=== PATIENT | female | born 1955 | race African-American/Black ===

== ENCOUNTER → 2017-03-10 | Outpatient (CLI) | payer MEDICARE, MEDICAID ==
[~2017-03-10] MED LIST: ESCI20TA51 PO; GLIP-115 OR; GLIP-115 PO; LEVO88TA4 OR; LIS20T GT; TRAZ100T2 PO; ZOLP5TAB5 PO
== END ==
LOC: LAB 11:34
PROVIDERS: ATTEND Internal Medicine Cardiovascular Disease
DX: N39.0 Urinary tract infection, site not specified (principal)
CPT/HCPCS: 87086

== ENCOUNTER → 2017-04-29 | Outpatient (CLI) | payer MEDICARE, MEDICAID ==
[2017-04-29 12:28] LABS: Urine Bilirubin Negative (Negative); Urine Blood Negative /uL (Negative); Urine Color Yellow (Yellow); Urine Glucose TRACE mg/dL (Normal); Urine Ketone Negative (Negative); Urine Nitrite Negative (Negative); Urine Urobilinogen Normal (Negative); Urine pH 5.5 (5.0-8.0)
== END | disposition home or self-care (01) ==
LOC: LAB 09:47
PROVIDERS: ATTEND Internal Medicine Cardiovascular Disease
DX: N39.0 Urinary tract infection, site not specified (principal)
CPT/HCPCS: 81003; 87086

== ENCOUNTER 2017-07-05 20:11 | Emergency (ER) | payer MEDICARE, MEDICAID ==
[~2017-07-05] VITALS: Ht 157.5 cm; Wt 63.5 kg
[2017-07-05 20:44] LABS: Basophils # (auto) 0.2 uL; Basophils % (auto) 1.2 % (0.0-2.0); Eosinophils # (auto) 0.1 uL; Eosinophils % (auto) 0.9 % (0.0-7.0); Hematocrit 43.8 % (36.0-46.0); Hemoglobin 14.5 g/dL (12.2-16.2); Lymphocytes # (auto) 2.9 uL; Lymphocytes % (auto) 23.3 % (10.0-50.0); Mean Corpuscular Hgb Conc. 33.1 g/dL (32.0-36.0); Mean Corpuscular Volume 87.6 fL (80.0-100.0); Mean Platelet Volume 8.9 fL (6.9-10.8); Monocytes # (auto) 1.1 uL; Monocytes % (auto) 8.5 % (0.0-12.0); Neutrophils # (auto) 8.2 uL; Neutrophils % (auto) 66.1 % (37.0-80.0); Platelet Count (auto) 200 10^3/uL (140-450); Red Cell Distribution Width 14.2 % (11.8-14.3); White Blood Cell 12.5 10^3/uL (4.4-10.8)
[2017-07-05 21:09] LABS: Albumin 4.1 g/dL (3.4-5.0); BUN/Creatinine Ratio 17.6; Calcium 9.5 mg/dL (8.5-10.1); Potassium 3.9 mmol/L (3.5-5.1)
[2017-07-05 21:11] LABS: Bilirubin, Total 0.4 mg/dL (0.2-1.0); Total Protein 7.2 g/dL (6.4-8.2)
[2017-07-06] MEDS ORDERED: HYDROcodone-ACET 10/325MG TAB PO ONE (03:30)
[2017-07-06] MEDS ORDERED: LEVOFLOXACIN 500MG 100 ML IV ONE (03:30)
[2017-07-06 04:25] LABS: Urine Bilirubin Negative (Negative); Urine Blood Negative /uL (Negative); Urine Color Yellow (Yellow); Urine Glucose Normal (Normal); Urine Ketone Negative (Negative); Urine Nitrite Negative (Negative); Urine RBC <1 /hpf (0 - 4); Urine Squamous Epithelial Cell FEW /hpf (<5); Urine Urobilinogen Normal (Negative); Urine pH 6.5 (5.0-8.0)
[2017-07-06 04:32] VITALS: BP 127/72
[2017-07-06] MEDS ORDERED: NOREPINEPHRINE BITARTRATE 250 ML IV ONE (05:52)
== END 2017-07-06 06:08 | disposition home or self-care (01) ==
LOC: ER 20:18
DX: J02.9 Acute pharyngitis, unspecified (principal); H92.01 Otalgia, right ear; M79.672 Pain in left foot; J06.9 Acute upper respiratory infection, unspecified; E11.9 Type 2 diabetes mellitus without complications; E78.5 Hyperlipidemia, unspecified; I10 Essential (primary) hypertension; Z88.0 Allergy status to penicillin; Z91.040 Latex allergy status; Z79.899 Other long term (current) drug therapy
CPT/HCPCS: 36415; 71010; 80053; 81001; 84550; 85025; 96365; 99285; J1956

== ENCOUNTER → 2017-09-13 | Outpatient (CLI) | payer MEDICARE, MEDICAID ==
[2017-09-13 12:59] LABS: Urine Bilirubin Negative (Negative); Urine Blood Negative /uL (Negative); Urine Color Yellow (Yellow); Urine Glucose Normal (Normal); Urine Ketone Negative (Negative); Urine Nitrite Negative (Negative); Urine Urobilinogen Normal (Negative); Urine pH 5.5 (5.0-8.0)
[2017-09-13 13:19] LABS: BUN/Creatinine Ratio 23.3; Bilirubin, Total 0.2 mg/dL (0.2-1.0); Calcium 10.3 mg/dL (8.5-10.1); Potassium 4.7 mmol/L (3.5-5.1); Total Protein 7.2 g/dL (6.4-8.2)
== END | disposition home or self-care (01) ==
LOC: LAB 08:05
PROVIDERS: ATTEND Internal Medicine Cardiovascular Disease
DX: I10 Essential (primary) hypertension (principal); E11.9 Type 2 diabetes mellitus without complications; E78.00 Pure hypercholesterolemia, unspecified; N39.0 Urinary tract infection, site not specified
CPT/HCPCS: 36415; 80053; 80061; 81003; 83036; 87086

== ENCOUNTER 2017-10-22 16:42 | Inpatient (IN) | payer MEDICARE, MEDICAID ==
[~2017-10-22] VITALS: Ht 157.5 cm; Wt 65.7 kg
[2017-10-22] MEDS ORDERED: SODIUM CHLORIDE 0.9% 1,000 ML IV ONE (17:21)
[2017-10-22] MEDS ORDERED: ONDANSETRON HCL 4 MG/2 ML VIAL IV ONE (17:30)
[2017-10-22 17:45] LABS: Basophils # (auto) 0 uL; Eosinophils # (auto) 0 uL; Hemoglobin 16.7 g/dL (12.2-16.2); Lymphocytes # (auto) 1.9 uL; Monocytes # (auto) 0.6 uL; Neutrophils % (auto) 77.6 % (37.0-80.0)
[2017-10-22 17:49] LABS: Basophils % (auto) 0.2 % (0.0-2.0); Hematocrit 50.9 % (36.0-46.0); Lymphocytes % (auto) 16.7 % (10.0-50.0); Mean Corpuscular Hemoglobin 27.9 pg (28.0-32.0); Mean Corpuscular Hgb Conc. 32.9 g/dL (32.0-36.0); Mean Corpuscular Volume 84.8 fL (80.0-100.0); Monocytes % (auto) 5.5 % (0.0-12.0); Neutrophils # (auto) 8.8 uL; Nucleated Red Blood Cells % 0.3 %; Platelet Count (auto) 160 10^3/uL (140-450); Red Blood Cells 6.01 10^6/uL (4.0-5.20); Red Cell Distribution Width 14.9 % (11.8-14.3); White Blood Cell 11.3 10^3/uL (4.4-10.8)
[2017-10-22 18:08] LABS: Blood Alcohol < 3.0 mg/dL (0-5); Magnesium 2.2 mg/dL (1.6-2.6)
[2017-10-22 19:15] LABS: Potassium 3.7 mmol/L (3.5-5.1)
[2017-10-22 19:16] LABS: BUN/Creatinine Ratio 17.1; Calcium 9.6 mg/dL (8.5-10.1)
[2017-10-22 19:17] LABS: Albumin 4.1 g/dL (3.4-5.0); Bilirubin, Total 0.4 mg/dL (0.2-1.0); Total Protein 7.9 g/dL (6.4-8.2)
[2017-10-22] MEDS ORDERED: HYDROcodone-ACET 10/325MG TAB PO ONE (20:00)
[2017-10-22] MEDS ORDERED: DIPHENOXYLATE W/ATROPINE 2.5 MG TAB PO ONE (21:45)
[2017-10-22] MEDS ORDERED: ACETAMINOPHEN 325 MG TAB PO ONE (23:15)
[2017-10-22] MEDS: SODIUM CHLORIDE 0.9% 1,000 ML IV SCH (23:55)
[2017-10-23] VITALS (8 sets, daily range): BP systolic 94–128; BP diastolic 42–75
[2017-10-23] MEDS: metroNIDAZOLE 500MG/100ML 100 ML IV SCH ×5 (00:03→23:11)
[2017-10-23] MEDS ORDERED: ONDANSETRON HCL 4 MG/2 ML VIAL IV PRN (06:00)
[2017-10-23] MEDS ORDERED: ACETAMINOPHEN 325 MG TAB PO PRN (06:45)
[2017-10-23] MEDS ORDERED: ACETAMINOPHEN 325 MG TAB PO ONE (06:52)
[2017-10-23] MEDS: ACETAMINOPHEN 325 MG TAB PO PRN ×2 (07:15→16:12)
[2017-10-23] MEDS: SODIUM CHLORIDE 0.9% 1,000 ML IV SCH (11:32)
[2017-10-23 11:48] LABS: Urine Bacteria FEW /hpf (None Seen); Urine Blood 2+ /uL (Negative); Urine Specific Gravity 1.015 (1.001-1.035); Urine WBC 10 /hpf (0 - 5)
[2017-10-23 11:56] LABS: Alcohol, Urine < 3.0 mg/dL (0-5); Amphetamine Screen, Urine NEGATIVE (NEGATIVE); Barbiturate Scree,Urine NEGATIVE (NEGATIVE); Benzodiazephine Screen, Urine NEGATIVE (NEGATIVE); Cannabinoid Screen, Urine POSITIVE (NEGATIVE); Cocaine Screen, Urine NEGATIVE (NEGATIVE); Opiate Scree,Urine POSITIVE (NEGATIVE); Phencyclidine Screen, Urine NEGATIVE (NEGATIVE)
[2017-10-23] MEDS: NITROGLYCERIN 0.2MG/HR TOPICAL PATCH TD SCH (17:58)
[2017-10-23] MEDS ORDERED: ENOXAPARIN SOD 30 MG/0.3 ML SYRINGE SC SCH (18:00)
[2017-10-23] MEDS ORDERED: ENOXAPARIN SOD 30 MG/0.3 ML SYRINGE IV SCH (18:00)
[2017-10-23] MEDS: LEVOFLOXACIN 500MG 100 ML IV SCH (18:56)
[2017-10-23] MEDS ORDERED: ZOLPIDEM TARTRATE 5 MG TAB PO PRN (20:15)
[2017-10-24] VITALS (7 sets, daily range): BP systolic 109–138; BP diastolic 54–70
[2017-10-24] MEDS: ACETAMINOPHEN 325 MG TAB PO PRN ×2 (00:46→08:26)
[2017-10-24] MEDS: SODIUM CHLORIDE 0.9% 1,000 ML IV SCH ×2 (02:25→17:11)
[2017-10-24] MEDS: metroNIDAZOLE 500MG/100ML 100 ML IV SCH ×4 (05:05→23:29)
[2017-10-24] MEDS: LEVOFLOXACIN 500MG 100 ML IV SCH (10:49)
[2017-10-24] MEDS: NITROGLYCERIN 0.2MG/HR TOPICAL PATCH TD SCH (13:02)
[2017-10-24] MEDS ORDERED: GABA300C10 PO (15:55)
[2017-10-24] MEDS ORDERED: METO-281 PO (15:55)
[2017-10-24] MEDS ORDERED: LOSA100T22 PO (15:55)
[2017-10-24] MEDS ORDERED: ATOR20TA PO (15:55)
[2017-10-24] MEDS ORDERED: HYDR-4683 PO (15:55)
[2017-10-24] MEDS ORDERED: PROP1CAP PO (15:55)
[2017-10-24] MEDS ORDERED: PREG200C19 PO (15:55)
[2017-10-24] MEDS ORDERED: DEXL60CA3 PO (15:55)
[2017-10-24] MEDS ORDERED: LEVO88TA4 PO (15:55)
[2017-10-24] MEDS ORDERED: RIVA15TA PO (15:55)
[2017-10-24] MEDS ORDERED: ZOLP10TA PO (15:55)
[2017-10-24] MEDS ORDERED: AMLO5TAB2 PO (15:55)
[2017-10-24] MEDS ORDERED: METOCLOPRAMIDE HCL 10 MG TAB PO PRN (16:15)
[2017-10-24] MEDS ORDERED: DEXTROSE (50%) 50ML SYRG IV PRN (16:15)
[2017-10-24] MEDS ORDERED: SITA50TA PO (16:33)
[2017-10-24] MEDS: InsuLIN REG 1unit/0.01ml Soln (100units/ml) SC SCH ×2 (17:00→22:41)
[2017-10-24] MEDS: ACCU-CHEK COMFORT CURVE STRIP VI SCH ×2 (17:11→22:41)
[2017-10-24] MEDS: glipiZIDE 5 MG TAB PO SCH (17:12)
[2017-10-24] MEDS: HYDROcodone-ACET 10/325MG TAB PO PRN (17:27)
[2017-10-24] MEDS ORDERED: GABAPENTIN 300 MG CAP PO SCH (18:00)
[2017-10-24] MEDS: PREGABALIN 25 MG CAP PO SCH (21:05)
[2017-10-24] MEDS: ATORVASTATIN 20 MG TAB PO SCH (21:06)
[2017-10-24] MEDS: PANTOPRAZOLE 40 MG TAB PO SCH (21:06)
[2017-10-24] MEDS: ALPRAZolam 0.25 MG TAB PO SCH (21:06)
[2017-10-24] MEDS: PROPRANOLOL HCL 20 MG TAB PO SCH (21:07)
[2017-10-24] MEDS: traZODone HCL 50 MG TAB PO SCH (21:07)
[2017-10-24] MEDS: ZOLPIDEM TARTRATE 5 MG TAB PO PRN (23:33)
[2017-10-25] VITALS (7 sets, daily range): BP systolic 90–158; BP diastolic 52–88
[2017-10-25] MEDS: metroNIDAZOLE 500MG/100ML 100 ML IV SCH ×3 (05:09→17:20)
[2017-10-25] MEDS: SODIUM CHLORIDE 0.9% 1,000 ML IV SCH ×2 (05:09→17:21)
[2017-10-25] MEDS: LEVOTHYROXINE SODIUM 88 MCG TAB PO SCH (05:09)
[2017-10-25] MEDS: PREGABALIN 25 MG CAP PO SCH ×3 (06:00→22:33)
[2017-10-25] MEDS: glipiZIDE 5 MG TAB PO SCH ×2 (06:20→17:20)
[2017-10-25] MEDS: ACCU-CHEK COMFORT CURVE STRIP VI SCH ×4 (06:21→22:00)
[2017-10-25] MEDS: InsuLIN REG 1unit/0.01ml Soln (100units/ml) SC SCH ×4 (06:21→22:00)
[2017-10-25] MEDS ORDERED: IOHEXOL 350 MG/ML 100ML IJ ONE (08:06)
[2017-10-25] MEDS ORDERED: LIDOCAINE 2%HCL (LOCAL ANESTH.) INJ 20ML MDV ONE (08:06)
[2017-10-25] MEDS ORDERED: ANGIOMAX 250 MG VIAL IV ONE (08:30)
[2017-10-25] MEDS ORDERED: MIDAZOLAM HCL 1MG/1ML-2 ML VIAL ONE (08:30)
[2017-10-25] MEDS ORDERED: fentaNYL CITRATE 100 MCG/2 ML VL ONE (08:30)
[2017-10-25] MEDS ORDERED: SODIUM CHL 0.9% 50 ML ONE (08:31)
[2017-10-25 08:33] LABS: INR 0.99 (0.9-1.15); Partial Thromboplastin Time 28.5 sec (22.64-33.71); Prothrombin Time 10.8 sec (9.37-12.3)
[2017-10-25] MEDS ORDERED: CLOPIDOGREL 300 MG TAB ONE (09:41)
[2017-10-25] MEDS: NITROGLYCERIN 0.2MG/HR TOPICAL PATCH TD SCH (10:00)
[2017-10-25] MEDS: JANUVIA 50 MG PO SCH (10:00)
[2017-10-25] MEDS ORDERED: LEXAPRO 20 MG PO SCH (10:00)
[2017-10-25] MEDS: PROPRANOLOL HCL 20 MG TAB PO SCH ×2 (11:07→22:33)
[2017-10-25] MEDS: ALPRAZolam 0.25 MG TAB PO SCH ×2 (11:07→22:33)
[2017-10-25] MEDS: PANTOPRAZOLE 40 MG TAB PO SCH ×2 (11:08→22:31)
[2017-10-25] MEDS: LOSARTAN POTASSIUM 50 MG TAB PO SCH (11:08)
[2017-10-25] MEDS: PARoxetine 20 MG TAB PO SCH (11:09)
[2017-10-25] MEDS: LEVOFLOXACIN 500MG 100 ML IV SCH (11:09)
[2017-10-25] MEDS: HYDROcodone-ACET 10/325MG TAB PO PRN ×2 (13:03→13:23)
[2017-10-25] MEDS: RIVAROXABAN 15 MG TAB PO SCH (17:20)
[2017-10-25] MEDS: traZODone HCL 50 MG TAB PO SCH (22:31)
[2017-10-25] MEDS: ATORVASTATIN 20 MG TAB PO SCH (22:33)
[2017-10-25] MEDS: ZOLPIDEM TARTRATE 5 MG TAB PO PRN (22:52)
[2017-10-26] MEDS: metroNIDAZOLE 500MG/100ML 100 ML IV SCH ×3 (03:21→11:57)
[2017-10-26 05:00] VITALS: BP 125/62
[2017-10-26] MEDS: PREGABALIN 25 MG CAP PO SCH ×3 (06:16→22:05)
[2017-10-26] MEDS: LEVOTHYROXINE SODIUM 88 MCG TAB PO SCH (06:36)
[2017-10-26] MEDS: glipiZIDE 5 MG TAB PO SCH ×2 (06:36→17:52)
[2017-10-26] MEDS: ACCU-CHEK COMFORT CURVE STRIP VI SCH ×4 (06:36→22:01)
[2017-10-26] MEDS: InsuLIN REG 1unit/0.01ml Soln (100units/ml) SC SCH ×4 (06:37→22:00)
[2017-10-26] MEDS: SODIUM CHLORIDE 0.9% 1,000 ML IV SCH ×2 (07:45→21:24)
[2017-10-26] MEDS: RIVAROXABAN 15 MG TAB PO SCH ×2 (08:00→18:00)
[2017-10-26 08:02] VITALS: BP 144/75
[2017-10-26] MEDS: NITROGLYCERIN 0.2MG/HR TOPICAL PATCH TD SCH (10:00)
[2017-10-26] MEDS: JANUVIA 50 MG PO SCH (10:00)
[2017-10-26] MEDS: PARoxetine 20 MG TAB PO SCH (10:17)
[2017-10-26] MEDS: ALPRAZolam 0.25 MG TAB PO SCH ×2 (10:17→22:05)
[2017-10-26] MEDS: PANTOPRAZOLE 40 MG TAB PO SCH ×2 (10:17→22:05)
[2017-10-26] MEDS: PROPRANOLOL HCL 20 MG TAB PO SCH ×2 (10:19→22:00)
[2017-10-26] MEDS: CLOPIDOGREL BISULFATE 75 MG TAB PO SCH (10:19)
[2017-10-26] MEDS: HYDROcodone-ACET 10/325MG TAB PO PRN ×2 (10:19→18:33)
[2017-10-26] MEDS: LOSARTAN POTASSIUM 50 MG TAB PO SCH (10:20)
[2017-10-26] MEDS: LEVOFLOXACIN 500MG 100 ML IV SCH (10:21)
[2017-10-26 11:38] VITALS: BP 99/53
[2017-10-26 16:59] VITALS: BP 148/71
[2017-10-26 22:00] VITALS: BP 126/66
[2017-10-26] MEDS: ATORVASTATIN 20 MG TAB PO SCH (22:05)
[2017-10-26] MEDS: traZODone HCL 50 MG TAB PO SCH (22:05)
[2017-10-27 05:00] VITALS: BP 142/69
[2017-10-27] MEDS: InsuLIN REG 1unit/0.01ml Soln (100units/ml) SC SCH ×4 (06:11→22:00)
[2017-10-27] MEDS: ACCU-CHEK COMFORT CURVE STRIP VI SCH ×4 (06:11→22:10)
[2017-10-27] MEDS: LEVOTHYROXINE SODIUM 88 MCG TAB PO SCH (06:12)
[2017-10-27] MEDS: PREGABALIN 25 MG CAP PO SCH ×3 (06:12→22:06)
[2017-10-27] MEDS: glipiZIDE 5 MG TAB PO SCH (06:13)
[2017-10-27] MEDS: HYDROcodone-ACET 10/325MG TAB PO PRN ×2 (06:15→20:29)
[2017-10-27 08:00] VITALS: BP 98/61
[2017-10-27] MEDS: RIVAROXABAN 15 MG TAB PO SCH ×2 (08:00→17:48)
[2017-10-27 08:01] VITALS: BP 98/61
[2017-10-27] MEDS: NITROGLYCERIN 0.2MG/HR TOPICAL PATCH TD SCH (10:00)
[2017-10-27] MEDS: JANUVIA 50 MG PO SCH (10:00)
[2017-10-27] MEDS: PROPRANOLOL HCL 20 MG TAB PO SCH ×2 (10:00→22:07)
[2017-10-27] MEDS: PARoxetine 20 MG TAB PO SCH (10:22)
[2017-10-27] MEDS: LOSARTAN POTASSIUM 50 MG TAB PO SCH (10:22)
[2017-10-27] MEDS: PANTOPRAZOLE 40 MG TAB PO SCH ×2 (10:23→22:05)
[2017-10-27] MEDS: ALPRAZolam 0.25 MG TAB PO SCH ×2 (10:23→22:06)
[2017-10-27] MEDS: CLOPIDOGREL BISULFATE 75 MG TAB PO SCH (10:23)
[2017-10-27] MEDS: SODIUM CHLORIDE 0.9% 1,000 ML IV SCH (10:24)
[2017-10-27 11:54] VITALS: BP 115/60
[2017-10-27] MEDS: BOOST PLUS 8 ounce PO SCH ×2 (12:00→17:48)
[2017-10-27 13:25] LABS: Basophils # (auto) 0 uL; Basophils % (auto) 0.7 % (0.0-2.0); Eosinophils # (auto) 0 uL; Eosinophils % (auto) 0.4 % (0.0-7.0); Hematocrit 45.8 % (36.0-46.0); Hemoglobin 14.9 g/dL (12.2-16.2); Lymphocytes # (auto) 2.8 uL; Lymphocytes % (auto) 51.6 % (10.0-50.0); Mean Corpuscular Hemoglobin 27.5 pg (28.0-32.0); Mean Corpuscular Hgb Conc. 32.5 g/dL (32.0-36.0); Mean Corpuscular Volume 84.6 fL (80.0-100.0); Monocytes # (auto) 0.6 uL; Monocytes % (auto) 10.7 % (0.0-12.0); Neutrophils % (auto) 36.6 % (37.0-80.0); Nucleated Red Blood Cells % 0.8 %; Platelet Count (auto) 128 10^3/uL (140-450); Red Blood Cells 5.41 10^6/uL (4.0-5.20); Red Cell Distribution Width 15.1 % (11.8-14.3); White Blood Cell 5.5 10^3/uL (4.4-10.8)
[2017-10-27 14:05] LABS: BUN/Creatinine Ratio 5.9; Potassium 3.1 mmol/L (3.5-5.1)
[2017-10-27 14:06] LABS: Calcium 8.7 mg/dL (8.5-10.1)
[2017-10-27 16:55] VITALS: BP 162/107
[2017-10-27] MEDS: ATORVASTATIN 20 MG TAB PO SCH (22:06)
[2017-10-27] MEDS: MEGESTROL ACETATE 20 MG TAB PO SCH (22:06)
[2017-10-27] MEDS: traZODone HCL 50 MG TAB PO SCH (22:06)
[2017-10-28] MEDS: SODIUM CHLORIDE 0.9% 1,000 ML IV SCH ×2 (00:13→12:58)
[2017-10-28] MEDS: HYDROcodone-ACET 10/325MG TAB PO PRN ×2 (03:15→21:49)
[2017-10-28 05:08] VITALS: BP 107/59
[2017-10-28] MEDS: ACCU-CHEK COMFORT CURVE STRIP VI SCH ×4 (06:01→22:01)
[2017-10-28] MEDS: PREGABALIN 25 MG CAP PO SCH ×3 (06:05→21:48)
[2017-10-28] MEDS: LEVOTHYROXINE SODIUM 88 MCG TAB PO SCH (06:05)
[2017-10-28] MEDS: InsuLIN REG 1unit/0.01ml Soln (100units/ml) SC SCH ×4 (06:05→22:00)
[2017-10-28] MEDS ORDERED: GASTROGRAFIN 30 ML SOL ONE (07:58)
[2017-10-28] MEDS ORDERED: POTASSIUM CHLORIDE 60 MEQ, LIDOCAINE 1% (LOCAL ANESTH.) 6 ML in SODIUM CHL 0.9% 500 ML IV ONE (08:00)
[2017-10-28 09:00] VITALS: BP 122/68
[2017-10-28] MEDS: PROPRANOLOL HCL 20 MG TAB PO SCH ×2 (10:00→22:01)
[2017-10-28] MEDS: ALPRAZolam 0.25 MG TAB PO SCH ×2 (10:00→21:48)
[2017-10-28] MEDS: JANUVIA 50 MG PO SCH (10:00)
[2017-10-28] MEDS: NITROGLYCERIN 0.2MG/HR TOPICAL PATCH TD SCH (10:00)
[2017-10-28] MEDS: MEGESTROL ACETATE 20 MG TAB PO SCH ×2 (10:55→21:48)
[2017-10-28] MEDS: PANTOPRAZOLE 40 MG TAB PO SCH ×2 (10:55→21:48)
[2017-10-28] MEDS: PARoxetine 20 MG TAB PO SCH (10:56)
[2017-10-28] MEDS: LOSARTAN POTASSIUM 50 MG TAB PO SCH (10:56)
[2017-10-28] MEDS: CLOPIDOGREL BISULFATE 75 MG TAB PO SCH (10:59)
[2017-10-28] MEDS: METOCLOPRAMIDE HCL 10 MG TAB PO SCH ×3 (10:59→21:48)
[2017-10-28] MEDS: BOOST PLUS 8 ounce PO SCH ×3 (11:02→17:49)
[2017-10-28] MEDS: glipiZIDE 5 MG TAB PO SCH (11:11)
[2017-10-28] MEDS: RIVAROXABAN 15 MG TAB PO SCH ×2 (12:52→17:49)
[2017-10-28 13:00] VITALS: BP 140/77
[2017-10-28 17:00] VITALS: BP 168/77
[2017-10-28] MEDS: ATORVASTATIN 20 MG TAB PO SCH (21:48)
[2017-10-28] MEDS: traZODone HCL 50 MG TAB PO SCH (21:48)
[2017-10-28 22:18] VITALS: BP 156/84
[2017-10-29] MEDS: SODIUM CHLORIDE 0.9% 1,000 ML IV SCH ×2 (02:25→15:45)
[2017-10-29 05:00] VITALS: BP 156/71
[2017-10-29] MEDS: HYDROcodone-ACET 10/325MG TAB PO PRN ×3 (05:05→21:38)
[2017-10-29] MEDS: LEVOTHYROXINE SODIUM 88 MCG TAB PO SCH (05:05)
[2017-10-29] MEDS: PREGABALIN 25 MG CAP PO SCH ×3 (05:06→21:26)
[2017-10-29] MEDS: InsuLIN REG 1unit/0.01ml Soln (100units/ml) SC SCH ×4 (05:07→21:38)
[2017-10-29] MEDS: METOCLOPRAMIDE HCL 10 MG TAB PO SCH ×4 (07:00→21:25)
[2017-10-29] MEDS: ACCU-CHEK COMFORT CURVE STRIP VI SCH ×4 (07:00→21:38)
[2017-10-29] MEDS: PARoxetine 20 MG TAB PO SCH (08:58)
[2017-10-29] MEDS: ALPRAZolam 0.25 MG TAB PO SCH ×2 (08:58→21:24)
[2017-10-29] MEDS: RIVAROXABAN 15 MG TAB PO SCH ×2 (08:58→18:19)
[2017-10-29] MEDS: PANTOPRAZOLE 40 MG TAB PO SCH ×2 (08:58→21:25)
[2017-10-29] MEDS: CLOPIDOGREL BISULFATE 75 MG TAB PO SCH (08:58)
[2017-10-29 09:00] VITALS: BP 134/98
[2017-10-29] MEDS: PROPRANOLOL HCL 20 MG TAB PO SCH ×2 (09:00→21:38)
[2017-10-29] MEDS: LOSARTAN POTASSIUM 50 MG TAB PO SCH (09:00)
[2017-10-29] MEDS: glipiZIDE 5 MG TAB PO SCH (09:07)
[2017-10-29] MEDS: JANUVIA 50 MG PO SCH (09:58)
[2017-10-29] MEDS: BOOST PLUS 8 ounce PO SCH ×3 (09:58→18:19)
[2017-10-29] MEDS: NITROGLYCERIN 0.2MG/HR TOPICAL PATCH TD SCH (09:59)
[2017-10-29] MEDS: MEGESTROL ACETATE 20 MG TAB PO SCH ×2 (09:59→21:25)
[2017-10-29 13:00] VITALS: BP 134/76
[2017-10-29 17:00] VITALS: BP 140/74
[2017-10-29 20:00] VITALS: BP 153/80
[2017-10-29] MEDS: traZODone HCL 50 MG TAB PO SCH (21:24)
[2017-10-29] MEDS: ATORVASTATIN 20 MG TAB PO SCH (21:26)
[2017-10-29 22:00] VITALS: BP 153/80
[2017-10-30] MEDS: SODIUM CHLORIDE 0.9% 1,000 ML IV SCH ×2 (05:05→18:25)
[2017-10-30 05:55] VITALS: BP 136/80
[2017-10-30] MEDS: PREGABALIN 25 MG CAP PO SCH ×3 (05:58→21:22)
[2017-10-30] MEDS: HYDROcodone-ACET 10/325MG TAB PO PRN ×2 (06:10→14:20)
[2017-10-30] MEDS: METOCLOPRAMIDE HCL 10 MG TAB PO SCH ×4 (06:11→21:23)
[2017-10-30] MEDS: LEVOTHYROXINE SODIUM 88 MCG TAB PO SCH (06:11)
[2017-10-30] MEDS: InsuLIN REG 1unit/0.01ml Soln (100units/ml) SC SCH ×4 (06:12→21:23)
[2017-10-30] MEDS: ACCU-CHEK COMFORT CURVE STRIP VI SCH ×4 (06:12→22:00)
[2017-10-30] MEDS: BOOST PLUS 8 ounce PO SCH ×3 (08:00→18:00)
[2017-10-30 08:30] VITALS: BP 124/72
[2017-10-30 09:00] VITALS: BP 124/72
[2017-10-30] MEDS: NITROGLYCERIN 0.2MG/HR TOPICAL PATCH TD SCH (09:59)
[2017-10-30] MEDS: CLOPIDOGREL BISULFATE 75 MG TAB PO SCH (09:59)
[2017-10-30] MEDS: PANTOPRAZOLE 40 MG TAB PO SCH ×2 (10:00→21:23)
[2017-10-30] MEDS: PARoxetine 20 MG TAB PO SCH (10:00)
[2017-10-30] MEDS: LOSARTAN POTASSIUM 50 MG TAB PO SCH (10:00)
[2017-10-30] MEDS: JANUVIA 50 MG PO SCH (10:00)
[2017-10-30] MEDS: ALPRAZolam 0.25 MG TAB PO SCH ×2 (10:00→21:21)
[2017-10-30] MEDS: RIVAROXABAN 15 MG TAB PO SCH ×2 (10:00→17:42)
[2017-10-30] MEDS: MEGESTROL ACETATE 20 MG TAB PO SCH ×2 (10:01→21:21)
[2017-10-30] MEDS: glipiZIDE 5 MG TAB PO SCH (10:04)
[2017-10-30] MEDS: PROPRANOLOL HCL 20 MG TAB PO SCH ×2 (10:05→21:22)
[2017-10-30 13:00] VITALS: BP 129/62
[2017-10-30 17:00] VITALS: BP 118/70
[2017-10-30] MEDS: ATORVASTATIN 20 MG TAB PO SCH (21:20)
[2017-10-30] MEDS: traZODone HCL 50 MG TAB PO SCH (21:21)
[2017-10-30 22:03] VITALS: BP 131/74
[2017-10-31 06:00] VITALS: BP 157/85
[2017-10-31] MEDS: PREGABALIN 25 MG CAP PO SCH ×2 (06:17→14:00)
[2017-10-31] MEDS: METOCLOPRAMIDE HCL 10 MG TAB PO SCH ×2 (06:17→11:45)
[2017-10-31] MEDS: InsuLIN REG 1unit/0.01ml Soln (100units/ml) SC SCH ×2 (06:50→11:30)
[2017-10-31] MEDS: LEVOTHYROXINE SODIUM 88 MCG TAB PO SCH (06:53)
[2017-10-31] MEDS: ACCU-CHEK COMFORT CURVE STRIP VI SCH ×2 (07:14→11:43)
[2017-10-31] MEDS: SODIUM CHLORIDE 0.9% 1,000 ML IV SCH (07:45)
[2017-10-31 08:00] VITALS: BP 141/86
[2017-10-31] MEDS: BOOST PLUS 8 ounce PO SCH ×2 (08:00→12:00)
[2017-10-31 09:00] VITALS: BP 141/86
[2017-10-31] MEDS: PANTOPRAZOLE 40 MG TAB PO SCH (09:22)
[2017-10-31] MEDS: LOSARTAN POTASSIUM 50 MG TAB PO SCH (09:23)
[2017-10-31] MEDS: RIVAROXABAN 15 MG TAB PO SCH (09:23)
[2017-10-31] MEDS: PARoxetine 20 MG TAB PO SCH (09:23)
[2017-10-31] MEDS: ALPRAZolam 0.25 MG TAB PO SCH (09:23)
[2017-10-31] MEDS: HYDROcodone-ACET 10/325MG TAB PO PRN (09:23)
[2017-10-31] MEDS: PROPRANOLOL HCL 20 MG TAB PO SCH (09:24)
[2017-10-31] MEDS: glipiZIDE 5 MG TAB PO SCH (09:24)
[2017-10-31] MEDS: CLOPIDOGREL BISULFATE 75 MG TAB PO SCH (09:25)
[2017-10-31] MEDS: MEGESTROL ACETATE 20 MG TAB PO SCH (09:25)
[2017-10-31] MEDS: NITROGLYCERIN 0.2MG/HR TOPICAL PATCH TD SCH ×2 (09:30→09:31)
[2017-10-31] MEDS: JANUVIA 50 MG PO SCH (09:32)
[2017-10-31 13:00] VITALS: BP 153/75
[2017-10-31 13:49] VITALS: BP 153/75
== END 2017-10-31 15:10 | disposition short-term general hospital (02) | DRG 853 ==
LOC: ER 16:43 → TELE-EAST 16:44
PROVIDERS: ADMIT Nurse Practitioner; ATTEND Internal Medicine Cardiovascular Disease
PROC: B2111ZZ Fluoroscopy of Multiple Coronary Arteries using Low Osmolar Contrast (ICD-10-PCS; principal; 2017-10-25)
PROC: 027034Z Dilation of Coronary Artery, One Artery with Drug-eluting Intraluminal Device, Percutaneous Approach (ICD-10-PCS; 2017-10-25)
PROC: 4A023N7 Measurement of Cardiac Sampling and Pressure, Left Heart, Percutaneous Approach (ICD-10-PCS; 2017-10-25)
PROC: B41C1ZZ Fluoroscopy of Pelvic Arteries using Low Osmolar Contrast (ICD-10-PCS; 2017-10-25)
PROC: B2151ZZ Fluoroscopy of Left Heart using Low Osmolar Contrast (ICD-10-PCS; 2017-10-25)
DX: A41.9 Sepsis, unspecified organism (principal); I21.4 Non-ST elevation (NSTEMI) myocardial infarction; G93.41 Metabolic encephalopathy; K52.9 Noninfective gastroenteritis and colitis, unspecified; E11.9 Type 2 diabetes mellitus without complications; E78.5 Hyperlipidemia, unspecified; E87.6 Hypokalemia; F17.210 Nicotine dependence, cigarettes, uncomplicated; I10 Essential (primary) hypertension; I25.119 Atherosclerotic heart disease of native coronary artery with unspecified angina pectoris; Z82.49 Family history of ischemic heart disease and other diseases of the circulatory system; Z83.3 Family history of diabetes mellitus; Z90.49 Acquired absence of other specified parts of digestive tract; Z90.710 Acquired absence of both cervix and uterus; G89.29 Other chronic pain; M54.9 Dorsalgia, unspecified; Z88.0 Allergy status to penicillin; Z91.041 Radiographic dye allergy status; Z79.899 Other long term (current) drug therapy; Z85.89 Personal history of malignant neoplasm of other organs and systems
CPT/HCPCS: 92928; 93458; 96361; 96374; 99285; G0278; 36415; 70450; 71046; 74176; 80048; 80053; 80307; 80320; 81001; 82962; 83735; 84484; 85025; 85610; 85730; 86850; 86900; 86901; 87493; 93005; 94761; 97110; 97116; 97163; 97530; 99152; C1874; J1815; J1956; J2001; J2250; J2405; J3490

== ENCOUNTER 2017-11-02 14:08 | Inpatient (IN) | payer MEDICAID, MEDICARE ==
[~2017-11-02] VITALS: Ht 157.5 cm; Wt 66.1 kg
[~2017-11-02 14:08] MED LIST changes: +AMLO5TAB2 PO; +ATOR20TA PO; +DEXL60CA3 PO; +GABA300C10 PO; -GLIP-115 OR; +HYDR-4683 PO; +LEVO88TA4 PO; +LOSA100T22 PO; +METO-281 PO; +PREG200C19 PO; +PROP1CAP PO; +RIVA15TA PO; +SITA50TA PO; +ZOLP10TA PO; -ZOLP5TAB5 PO
[2017-11-02 14:57] LABS: Basophils # (auto) 0 uL; Basophils % (auto) 0.2 % (0.0-2.0); Eosinophils # (auto) 0 uL; Eosinophils % (auto) 0.1 % (0.0-7.0); Hematocrit 49.4 % (36.0-46.0); Lymphocytes # (auto) 1.2 uL; Lymphocytes % (auto) 6.4 % (10.0-50.0); Mean Corpuscular Hgb Conc. 32.4 g/dL (32.0-36.0); Mean Corpuscular Volume 83.3 fL (80.0-100.0); Monocytes # (auto) 1.4 uL; Monocytes % (auto) 7.9 % (0.0-12.0); Neutrophils # (auto) 15.6 uL; Neutrophils % (auto) 85.4 % (37.0-80.0); Platelet Count (auto) 316 10^3/uL (140-450); Red Blood Cells 5.93 10^6/uL (4.0-5.20); Red Cell Distribution Width 14.9 % (11.8-14.3); White Blood Cell 18.2 10^3/uL (4.4-10.8)
[2017-11-02 15:34] LABS: Albumin 4.3 g/dL (3.4-5.0); BUN/Creatinine Ratio 11.4; Bilirubin, Total 0.7 mg/dL (0.2-1.0); Calcium 9.9 mg/dL (8.5-10.1); Magnesium 2.5 mg/dL (1.6-2.6); Total Protein 7.7 g/dL (6.4-8.2)
[2017-11-02 16:09] LABS: Potassium 2.8 mmol/L (3.5-5.1)
[2017-11-02] MEDS ORDERED: ASPirin 81 mg TAB PO ONE (16:15)
[2017-11-02] MEDS ORDERED: POTASSIUM CHL 20MEQ/50ML 50 ML IV ONE (16:15)
[2017-11-02] MEDS ORDERED: cefTRIAXone 1GM/10ml IVPUSH 10 ML IV ONE (17:00)
[2017-11-02] MEDS ORDERED: ENOXAPARIN SOD 80 MG/0.8ML SYRINGE SC ONE ×2 (17:00→17:45)
[2017-11-02] MEDS ORDERED: NITROGLYCERIN 0.4MG/HR TOPICAL PATCH TD ONE (17:00)
[2017-11-02] MEDS ORDERED: MORPHINE SULFATE 10 MG/ML INJ 1ML SDV IV PRN (17:00)
[2017-11-02] MEDS ORDERED: AZITHROMYCIN 500MG/ 250ML 250 ML IV ONE (17:00)
[2017-11-02] MEDS ORDERED: NITROGLYCERIN 0.4 MG SL TAB SL PRN (17:00)
[2017-11-02] MEDS ORDERED: PANTOPRAZOLE 40 MG/10 ML VIAL IV ONE (17:30)
[2017-11-02] MEDS ORDERED: DEXTROSE (50%) 50ML SYRG IV PRN (17:30)
[2017-11-02] MEDS ORDERED: MORPHINE SULFATE 10 MG/ML INJ 1ML SDV IV ONE (17:30)
[2017-11-02] MEDS ORDERED: ONDANSETRON HCL 4 MG/2 ML VIAL IV PRN (17:30)
[2017-11-02] MEDS: SODIUM CHLORIDE 0.9% 1,000 ML IV SCH (17:44)
[2017-11-02] MEDS ORDERED: POTASSIUM CHLORIDE 40 MEQ, LIDOCAINE 1% (LOCAL ANESTH.) 4 ML in SODIUM CHL 0.9% 100 ML IV ONE (17:45)
[2017-11-02] MEDS: GABAPENTIN 300 MG CAP PO SCH ×2 (18:25→21:37)
[2017-11-02] MEDS: MORPHINE SULFATE 10 MG/ML INJ 1ML SDV IV PRN (19:26)
[2017-11-02] MEDS: IPRATROPIUM BROM 0.5 MG/2.5ML INH SOL NEB SCH (19:33)
[2017-11-02] MEDS: ALBUTEROL SULF 2.5 MG/0.5ML(0.5%) NEB SOLN NEB SCH (19:33)
[2017-11-02 19:34] LABS: INR 1.03 (0.9-1.15); Partial Thromboplastin Time 25.2 sec (22.64-33.71); Prothrombin Time 11.2 sec (9.37-12.3)
[2017-11-02] MEDS: METOPROLOL TARTRATE 25 MG TAB PO SCH (21:36)
[2017-11-02] MEDS: ATORVASTATIN 20 MG TAB PO SCH (21:37)
[2017-11-02] MEDS: InsuLIN REG 1unit/0.01ml Soln (100units/ml) SC SCH (21:50)
[2017-11-02] MEDS: ACCU-CHEK COMFORT CURVE STRIP VI SCH (21:51)
[2017-11-02] MEDS ORDERED: ENOXAPARIN SOD 80 MG/0.8ML SYRINGE SC SCH (22:00)
[2017-11-02] MEDS ORDERED: ATORVASTATIN 20 MG TAB PO SCH (22:00)
[2017-11-02] MEDS ORDERED: PREGABALIN PO SCH (22:00)
[2017-11-02] MEDS: RIVAROXABAN 15 MG TAB PO SCH (22:04)
[2017-11-02 23:22] VITALS: BP 140/76
[2017-11-03] MEDS: ALBUTEROL SULF 2.5 MG/0.5ML(0.5%) NEB SOLN NEB SCH ×4 (00:58→18:15)
[2017-11-03] MEDS: IPRATROPIUM BROM 0.5 MG/2.5ML INH SOL NEB SCH ×4 (00:58→18:15)
[2017-11-03] MEDS: GABAPENTIN 300 MG CAP PO SCH ×6 (01:40→21:52)
[2017-11-03] MEDS: SODIUM CHLORIDE 0.9% 1,000 ML IV SCH ×3 (03:00→19:23)
[2017-11-03] MEDS: InsuLIN REG 1unit/0.01ml Soln (100units/ml) SC SCH ×4 (06:32→21:50)
[2017-11-03] MEDS: ACCU-CHEK COMFORT CURVE STRIP VI SCH ×4 (06:32→21:50)
[2017-11-03] MEDS: MORPHINE SULFATE 10 MG/ML INJ 1ML SDV IV PRN (06:44)
[2017-11-03 07:12] LABS: Basophils # (auto) 0 uL; Basophils % (auto) 0.2 % (0.0-2.0); Eosinophils # (auto) 0 uL; Hematocrit 41.7 % (36.0-46.0); Hemoglobin 13.8 g/dL (12.2-16.2); Lymphocytes # (auto) 1.1 uL; Lymphocytes % (auto) 5.3 % (10.0-50.0); Mean Corpuscular Hemoglobin 27.4 pg (28.0-32.0); Mean Corpuscular Volume 82.9 fL (80.0-100.0); Monocytes # (auto) 1.5 uL; Monocytes % (auto) 7.3 % (0.0-12.0); Neutrophils # (auto) 17.9 uL; Neutrophils % (auto) 87.2 % (37.0-80.0); Platelet Count (auto) 241 10^3/uL (140-450); Red Blood Cells 5.03 10^6/uL (4.0-5.20); Red Cell Distribution Width 14.9 % (11.8-14.3); White Blood Cell 20.6 10^3/uL (4.4-10.8)
[2017-11-03] MEDS ORDERED: IODIXANOL 320MG/ML 100ML BTL IV ONE (07:13)
[2017-11-03 07:32] LABS: Cholesterol 111 mg/dL (< 200); HDL Cholesterol 45 mg/dL (40-59); LDL Cholesterol 52 mg/dL (< 100); Triglycerides 142 mg/dL (< 150)
[2017-11-03 07:47] LABS: BUN/Creatinine Ratio 10.8; Calcium 8.2 mg/dL (8.5-10.1); Potassium 3.5 mmol/L (3.5-5.1)
[2017-11-03] MEDS: RIVAROXABAN 15 MG TAB PO SCH ×2 (08:01→21:48)
[2017-11-03] MEDS ORDERED: CLOPIDOGREL BISULFATE 75 MG TAB PO ONE (08:15)
[2017-11-03] MEDS: cefTRIAXone 1GM/10ml IVPUSH 10 ML IV SCH (09:03)
[2017-11-03] MEDS: PANTOPRAZOLE 40 MG/10 ML VIAL IV SCH (09:03)
[2017-11-03] MEDS: ASPirin 81 mg TAB PO SCH (09:03)
[2017-11-03] MEDS: METOPROLOL TARTRATE 25 MG TAB PO SCH ×2 (09:34→21:48)
[2017-11-03] MEDS: LISINOPRIL 20 MG TAB GT SCH (09:34)
[2017-11-03] MEDS: LEVOTHYROXINE SODIUM 88 MCG TAB PO SCH (09:34)
[2017-11-03] MEDS: AZITHROMYCIN 500MG/ 250ML 250 ML IV SCH (09:44)
[2017-11-03] MEDS ORDERED: IOHEXOL 350 MG/ML 100ML IJ ONE (13:08)
[2017-11-03] MEDS ORDERED: LIDOCAINE 2%HCL (LOCAL ANESTH.) INJ 20ML MDV ONE ×2 (13:09→13:59)
[2017-11-03] MEDS ORDERED: ANGIOMAX 250 MG VIAL IV ONE (13:40)
[2017-11-03] MEDS ORDERED: fentaNYL CITRATE 100 MCG/2 ML VL ONE (13:40)
[2017-11-03] MEDS ORDERED: MIDAZOLAM HCL 1MG/1ML-2 ML VIAL ONE (13:40)
[2017-11-03 17:01] VITALS: BP 126/61
[2017-11-03 17:16] VITALS: BP 126/61
[2017-11-03] MEDS: ATORVASTATIN 20 MG TAB PO SCH (21:49)
[2017-11-03 22:00] VITALS: BP 135/66
[2017-11-04] MEDS: MORPHINE SULFATE 10 MG/ML INJ 1ML SDV IV PRN (00:20)
[2017-11-04] MEDS: ALBUTEROL SULF 2.5 MG/0.5ML(0.5%) NEB SOLN NEB SCH ×4 (00:42→19:15)
[2017-11-04] MEDS: IPRATROPIUM BROM 0.5 MG/2.5ML INH SOL NEB SCH ×4 (00:42→19:15)
[2017-11-04] MEDS: GABAPENTIN 300 MG CAP PO SCH ×6 (01:39→22:11)
[2017-11-04 05:00] VITALS: BP 100/56
[2017-11-04] MEDS: LEVOTHYROXINE SODIUM 88 MCG TAB PO SCH (06:14)
[2017-11-04] MEDS: ACCU-CHEK COMFORT CURVE STRIP VI SCH ×4 (06:15→22:20)
[2017-11-04] MEDS: InsuLIN REG 1unit/0.01ml Soln (100units/ml) SC SCH ×4 (06:15→22:00)
[2017-11-04 08:00] VITALS: BP 112/58
[2017-11-04 09:24] VITALS: BP 112/58
[2017-11-04] MEDS: SODIUM CHLORIDE 0.9% 1,000 ML IV SCH ×2 (09:35→19:00)
[2017-11-04] MEDS: ASPirin 81 mg TAB PO SCH (09:35)
[2017-11-04] MEDS: RIVAROXABAN 15 MG TAB PO SCH ×2 (09:35→22:11)
[2017-11-04] MEDS: PANTOPRAZOLE 40 MG/10 ML VIAL IV SCH (09:36)
[2017-11-04] MEDS: LISINOPRIL 20 MG TAB GT SCH (09:36)
[2017-11-04] MEDS: METOPROLOL TARTRATE 25 MG TAB PO SCH ×2 (09:36→22:00)
[2017-11-04] MEDS: AZITHROMYCIN 500MG/ 250ML 250 ML IV SCH (09:38)
[2017-11-04] MEDS: cefTRIAXone 1GM/10ml IVPUSH 10 ML IV SCH (09:38)
[2017-11-04 13:00] VITALS: BP 101/53
[2017-11-04] MEDS ORDERED: VANCOMYCIN PER PHARMACY 0 MG IV SCH (14:45)
[2017-11-04] MEDS: ACETAMINOPHEN 500 MG TAB PO PRN (15:20)
[2017-11-04] MEDS: VANCOMYCIN 1GM/250ML 250 ML IV SCH (16:34)
[2017-11-04 17:00] VITALS: BP 120/65
[2017-11-04] MEDS: metroNIDAZOLE 500MG/100ML 100 ML IV SCH (19:52)
[2017-11-04 22:00] VITALS: BP 96/57
[2017-11-04] MEDS: ATORVASTATIN 20 MG TAB PO SCH (22:11)
[2017-11-05] MEDS: GABAPENTIN 300 MG CAP PO SCH ×6 (02:21→21:52)
[2017-11-05] MEDS: ACETAMINOPHEN 500 MG TAB PO PRN ×3 (02:22→19:08)
[2017-11-05] MEDS: SODIUM CHLORIDE 0.9% 1,000 ML IV SCH ×2 (03:57→16:30)
[2017-11-05 05:45] VITALS: BP 95/45
[2017-11-05] MEDS: ALBUTEROL SULF 2.5 MG/0.5ML(0.5%) NEB SOLN NEB SCH ×4 (06:18→19:11)
[2017-11-05] MEDS: IPRATROPIUM BROM 0.5 MG/2.5ML INH SOL NEB SCH ×4 (06:18→19:11)
[2017-11-05] MEDS: LEVOTHYROXINE SODIUM 88 MCG TAB PO SCH (06:30)
[2017-11-05] MEDS: InsuLIN REG 1unit/0.01ml Soln (100units/ml) SC SCH ×4 (06:30→22:04)
[2017-11-05] MEDS: ACCU-CHEK COMFORT CURVE STRIP VI SCH ×4 (06:30→21:58)
[2017-11-05] MEDS: metroNIDAZOLE 500MG/100ML 100 ML IV SCH ×4 (06:30→19:00)
[2017-11-05 09:00] VITALS: BP 88/39
[2017-11-05] MEDS: METOPROLOL TARTRATE 25 MG TAB PO SCH ×2 (10:00→21:53)
[2017-11-05] MEDS: LISINOPRIL 20 MG TAB GT SCH (10:00)
[2017-11-05] MEDS: RIVAROXABAN 15 MG TAB PO SCH ×2 (10:02→21:53)
[2017-11-05] MEDS: ASPirin 81 mg TAB PO SCH (10:02)
[2017-11-05] MEDS: VANCOMYCIN 1GM/250ML 250 ML IV SCH (10:03)
[2017-11-05] MEDS: PANTOPRAZOLE 40 MG/10 ML VIAL IV SCH (10:03)
[2017-11-05] MEDS: cefTRIAXone 1GM/10ml IVPUSH 10 ML IV SCH (10:05)
[2017-11-05 13:00] VITALS: BP 110/61
[2017-11-05 17:59] VITALS: BP 112/54
[2017-11-05] MEDS ORDERED: ALPR0.25 PO (19:47)
[2017-11-05] MEDS: ATORVASTATIN 20 MG TAB PO SCH (21:52)
[2017-11-05 22:00] VITALS: BP 119/52
[2017-11-06] MEDS: metroNIDAZOLE 500MG/100ML 100 ML IV SCH ×4 (00:25→17:33)
[2017-11-06] MEDS: GABAPENTIN 300 MG CAP PO SCH ×6 (01:55→21:25)
[2017-11-06] MEDS: SODIUM CHLORIDE 0.9% 1,000 ML IV SCH ×3 (01:56→21:00)
[2017-11-06] MEDS: ACETAMINOPHEN 500 MG TAB PO PRN ×3 (02:01→17:27)
[2017-11-06] MEDS: VANCOMYCIN 1GM/250ML 250 ML IV SCH ×2 (03:58→21:28)
[2017-11-06 05:00] VITALS: BP 129/68
[2017-11-06 06:13] LABS: Basophils # (auto) 0 uL; Basophils % (auto) 0.2 % (0.0-2.0); Eosinophils # (auto) 0 uL; Eosinophils % (auto) 0.2 % (0.0-7.0); Hematocrit 37.3 % (36.0-46.0); Hemoglobin 12.3 g/dL (12.2-16.2); Lymphocytes # (auto) 1.6 uL; Lymphocytes % (auto) 17.8 % (10.0-50.0); Mean Corpuscular Hemoglobin 27.5 pg (28.0-32.0); Mean Corpuscular Hgb Conc. 32.8 g/dL (32.0-36.0); Mean Corpuscular Volume 83.8 fL (80.0-100.0); Monocytes # (auto) 1.3 uL; Neutrophils # (auto) 6.1 uL; Neutrophils % (auto) 67.8 % (37.0-80.0); Nucleated Red Blood Cells % 0.1 %; Platelet Count (auto) 200 10^3/uL (140-450); Red Blood Cells 4.45 10^6/uL (4.0-5.20); Red Cell Distribution Width 14.6 % (11.8-14.3); White Blood Cell 9.1 10^3/uL (4.4-10.8)
[2017-11-06 06:33] LABS: Calcium 7.9 mg/dL (8.5-10.1)
[2017-11-06] MEDS: ACCU-CHEK COMFORT CURVE STRIP VI SCH ×4 (06:40→21:36)
[2017-11-06] MEDS: InsuLIN REG 1unit/0.01ml Soln (100units/ml) SC SCH ×4 (06:40→21:36)
[2017-11-06] MEDS: LEVOTHYROXINE SODIUM 88 MCG TAB PO SCH (06:40)
[2017-11-06 06:41] LABS: Potassium 2.6 mmol/L (3.5-5.1)
[2017-11-06] MEDS: ALBUTEROL SULF 2.5 MG/0.5ML(0.5%) NEB SOLN NEB SCH ×3 (07:09→19:43)
[2017-11-06] MEDS: IPRATROPIUM BROM 0.5 MG/2.5ML INH SOL NEB SCH ×3 (07:09→18:00)
[2017-11-06 09:00] VITALS: BP 122/70
[2017-11-06] MEDS: cefTRIAXone 1GM/10ml IVPUSH 10 ML IV SCH (09:11)
[2017-11-06] MEDS: METOPROLOL TARTRATE 25 MG TAB PO SCH ×2 (10:00→21:26)
[2017-11-06] MEDS: RIVAROXABAN 15 MG TAB PO SCH ×2 (10:40→21:25)
[2017-11-06] MEDS: ASPirin 81 mg TAB PO SCH (10:40)
[2017-11-06] MEDS: PANTOPRAZOLE 40 MG/10 ML VIAL IV SCH (10:40)
[2017-11-06] MEDS: LISINOPRIL 20 MG TAB GT SCH (10:40)
[2017-11-06 13:00] VITALS: BP 121/63
[2017-11-06] MEDS ORDERED: POTASSIUM CHL 20 Meq TABLET PO ONE (13:15)
[2017-11-06] MEDS ORDERED: POTA20TA53 PO (13:51)
[2017-11-06 17:00] VITALS: BP 153/81
[2017-11-06] MEDS: ATORVASTATIN 20 MG TAB PO SCH (21:26)
[2017-11-06 22:00] VITALS: BP 126/69
[2017-11-06 23:40] LABS: BUN/Creatinine Ratio 7.8
[2017-11-07] MEDS: metroNIDAZOLE 500MG/100ML 100 ML IV SCH ×3 (02:05→11:32)
[2017-11-07] MEDS: ACETAMINOPHEN 500 MG TAB PO PRN (02:06)
[2017-11-07] MEDS: GABAPENTIN 300 MG CAP PO SCH ×4 (02:08→14:14)
[2017-11-07] MEDS: MORPHINE SULFATE 10 MG/ML INJ 1ML SDV IV PRN ×2 (02:53→11:27)
[2017-11-07 05:00] VITALS: BP 143/70
[2017-11-07] MEDS: LEVOTHYROXINE SODIUM 88 MCG TAB PO SCH (06:03)
[2017-11-07] MEDS: ALBUTEROL SULF 2.5 MG/0.5ML(0.5%) NEB SOLN NEB SCH ×3 (06:07→12:11)
[2017-11-07] MEDS: IPRATROPIUM BROM 0.5 MG/2.5ML INH SOL NEB SCH ×3 (06:07→12:11)
[2017-11-07] MEDS: ACCU-CHEK COMFORT CURVE STRIP VI SCH ×2 (06:09→11:25)
[2017-11-07] MEDS: SODIUM CHLORIDE 0.9% 1,000 ML IV SCH (06:09)
[2017-11-07] MEDS: InsuLIN REG 1unit/0.01ml Soln (100units/ml) SC SCH ×2 (06:09→11:25)
[2017-11-07 09:00] VITALS: BP 138/69
[2017-11-07] MEDS: ASPirin 81 mg TAB PO SCH (09:55)
[2017-11-07] MEDS: METOPROLOL TARTRATE 25 MG TAB PO SCH (09:55)
[2017-11-07] MEDS: LISINOPRIL 20 MG TAB GT SCH (09:55)
[2017-11-07] MEDS: cefTRIAXone 1GM/10ml IVPUSH 10 ML IV SCH (09:56)
[2017-11-07] MEDS: RIVAROXABAN 15 MG TAB PO SCH (09:56)
[2017-11-07] MEDS: PANTOPRAZOLE 40 MG/10 ML VIAL IV SCH (09:56)
[2017-11-07] MEDS ORDERED: POTASSIUM CHL 20 Meq TABLET PO ONE (11:15)
[2017-11-07 13:00] VITALS: BP 126/70
[2017-11-07 14:55] VITALS: BP 126/70
[2017-11-07] MEDS ORDERED: VANCOMYCIN 1,250 MG in D5W 5% 250 ML IV SCH (16:00)
== END 2017-11-07 16:10 | disposition home or self-care (01) | DRG 853 ==
LOC: ER 14:08 → EDUNIT# 14:08 → TELE 14:09 → TELE-WESTW 11-03 18:13
PROVIDERS: ADMIT Internal Medicine; ATTEND Internal Medicine Cardiovascular Disease
PROC: 4A023N7 Measurement of Cardiac Sampling and Pressure, Left Heart, Percutaneous Approach (ICD-10-PCS; principal; 2017-11-03)
PROC: 02703ZZ Dilation of Coronary Artery, One Artery, Percutaneous Approach (ICD-10-PCS; 2017-11-03)
PROC: B2151ZZ Fluoroscopy of Left Heart using Low Osmolar Contrast (ICD-10-PCS; 2017-11-03)
PROC: B2111ZZ Fluoroscopy of Multiple Coronary Arteries using Low Osmolar Contrast (ICD-10-PCS; 2017-11-03)
DX: A41.9 Sepsis, unspecified organism (principal); I21.4 Non-ST elevation (NSTEMI) myocardial infarction; J18.9 Pneumonia, unspecified organism; I11.0 Hypertensive heart disease with heart failure; I82.409 Acute embolism and thrombosis of unspecified deep veins of unspecified lower extremity; I50.9 Heart failure, unspecified; I48.91 Unspecified atrial fibrillation; K21.9 Gastro-esophageal reflux disease without esophagitis; I70.0 Atherosclerosis of aorta; G89.29 Other chronic pain; E11.9 Type 2 diabetes mellitus without complications; M54.9 Dorsalgia, unspecified; E78.5 Hyperlipidemia, unspecified; E87.6 Hypokalemia; E03.9 Hypothyroidism, unspecified; F17.210 Nicotine dependence, cigarettes, uncomplicated; I25.10 Atherosclerotic heart disease of native coronary artery without angina pectoris; Z95.5 Presence of coronary angioplasty implant and graft; Z85.72 Personal history of non-Hodgkin lymphomas; Z90.710 Acquired absence of both cervix and uterus; Z79.01 Long term (current) use of anticoagulants; Z79.84 Long term (current) use of oral hypoglycemic drugs; Z79.899 Other long term (current) drug therapy; Z80.1 Family history of malignant neoplasm of trachea, bronchus and lung; Z82.49 Family history of ischemic heart disease and other diseases of the circulatory system; Z83.3 Family history of diabetes mellitus
CPT/HCPCS: 36415; 70450; 71045; 80048; 80053; 80061; 80202; 82565; 82962; 83036; 83605; 83735; 84484; 85025; 85610; 85730; 86850; 86900; 86901; 87081; 92920; 93005; 93458; 94640; 96365; 96366; 96368; 96375; 96376; 97163; 99152; 99291; C9113; J1815; J2001; J2250; J2405; J3490; J7060; Q9967

== ENCOUNTER → 2017-11-19 | Outpatient (CLI) | payer MEDICARE, MEDICAID ==
[~2017-11-19] MED LIST changes: +ALPR0.25 PO; +POTA20TA53 PO
[2017-11-19 16:46] LABS: Urine Blood Negative /uL (Negative); Urine Specific Gravity 1.013 (1.001-1.035)
[2017-11-19 16:59] LABS: Basophils # (auto) 0 uL; Basophils % (auto) 0.3 % (0.0-2.0); Eosinophils # (auto) 0.1 uL; Eosinophils % (auto) 1.7 % (0.0-7.0); Hematocrit 42.5 % (36.0-46.0); Hemoglobin 13.7 g/dL (12.2-16.2); Lymphocytes # (auto) 2.5 uL; Lymphocytes % (auto) 40.8 % (10.0-50.0); Mean Corpuscular Hemoglobin 27.2 pg (28.0-32.0); Mean Corpuscular Hgb Conc. 32.2 g/dL (32.0-36.0); Mean Corpuscular Volume 84.6 fL (80.0-100.0); Monocytes # (auto) 0.4 uL; Monocytes % (auto) 7.3 % (0.0-12.0); Neutrophils % (auto) 49.9 % (37.0-80.0); Nucleated Red Blood Cells % 0.3 %; Platelet Count (auto) 333 10^3/uL (140-450); Red Blood Cells 5.03 10^6/uL (4.0-5.20); Red Cell Distribution Width 15.2 % (11.8-14.3); White Blood Cell 6.1 10^3/uL (4.4-10.8)
[2017-11-19 17:14] LABS: Alanine Aminotransferase 16 U/L (13-56); Albumin 3.6 g/dL (3.4-5.0); Alkaline Phosphatase 74 U/L (45-117); Anion Gap 9 (5-15); Aspartate Aminotransferase 23 U/L (15-37); BUN/Creatinine Ratio 8.3; Bilirubin, Direct < 0.1 mg/dL (0-0.2); Bilirubin, Total 0.5 mg/dL (0.2-1.0); Blood Urea Nitrogen 6 mg/dL (7-18); Calcium 9.4 mg/dL (8.5-10.1); Carbon Dioxide 25 mmol/L (21-32); Chloride 107 mmol/L (98-107); Cholesterol 154 mg/dL (< 200); GFR African American 105 mL/min; GFR Non-African American 87 mL/min; Glucose 63 mg/dL (74-106); HDL Cholesterol 42 mg/dL (40-59); LDL Cholesterol 84 mg/dL (< 100); Potassium 3.4 mmol/L (3.5-5.1); Sodium 141 mmol/L (136-145); Total Protein 7.3 g/dL (6.4-8.2); Triglycerides 218 mg/dL (< 150)
== END | disposition home or self-care (01) ==
LOC: CHF HDHVI 12:31
PROVIDERS: ATTEND Internal Medicine Cardiovascular Disease
DX: E78.00 Pure hypercholesterolemia, unspecified (principal); D64.9 Anemia, unspecified; E11.9 Type 2 diabetes mellitus without complications; E03.9 Hypothyroidism, unspecified; E55.9 Vitamin D deficiency, unspecified; K74.1 Hepatic sclerosis; N39.0 Urinary tract infection, site not specified; I10 Essential (primary) hypertension
CPT/HCPCS: 36415; 80048; 80061; 80076; 81003; 82306; 83036; 84443; 85025

== ENCOUNTER → 2017-12-06 | Outpatient (CLI) | payer MEDICARE, MEDICAID | END | disposition home or self-care (01) | LOC: Rad HDHVI 13:01 | PROVIDERS: ATTEND Internal Medicine Cardiovascular Disease | DX: I07.1 Rheumatic tricuspid insufficiency (principal); E11.21 Type 2 diabetes mellitus with diabetic nephropathy; R06.01 Orthopnea | CPT/HCPCS: 93306 ==

== ENCOUNTER → 2017-12-22 | Outpatient (CLI) | payer MEDICARE, MEDICAID ==
[~2017-12-22] MED LIST changes: +ADENOSINE 53 MG in GIVE UN-DILUTED 0 ML IV ONE; +ADENOSINE 90 MG/30 ML INJ IV ONE
== END | disposition home or self-care (01) ==
LOC: Rad HDHVI 13:33
PROVIDERS: ATTEND Internal Medicine Cardiovascular Disease
DX: E11.21 Type 2 diabetes mellitus with diabetic nephropathy (principal); I25.2 Old myocardial infarction; R06.01 Orthopnea; E11.40 Type 2 diabetes mellitus with diabetic neuropathy, unspecified; E11.65 Type 2 diabetes mellitus with hyperglycemia
CPT/HCPCS: 78452; 93005; 96374; 96375; A9500; J0153

== ENCOUNTER 2018-06-12 17:24 | Emergency (ER) | payer MEDICARE, MEDICAID ==
[~2018-06-12] VITALS: Ht 154.9 cm; Wt 63.5 kg
[~2018-06-12 17:24] MED LIST changes: -ADENOSINE 53 MG in GIVE UN-DILUTED 0 ML IV ONE; -ADENOSINE 90 MG/30 ML INJ IV ONE; -PREG200C19 PO; +PREG50CA PO
[2018-06-12 19:27] LABS: Basophils # (auto) 0.1 uL; Basophils % (auto) 0.7 % (0.0-2.0); Eosinophils # (auto) 0.1 uL; Eosinophils % (auto) 1.9 % (0.0-7.0); Hematocrit 48.3 % (36.0-46.0); Hemoglobin 15.8 g/dL (12.2-16.2); Lymphocytes # (auto) 3.1 uL; Lymphocytes % (auto) 39.6 % (10.0-50.0); Mean Corpuscular Hemoglobin 27.2 pg (28.0-32.0); Mean Corpuscular Hgb Conc. 32.8 g/dL (32.0-36.0); Monocytes # (auto) 0.5 uL; Neutrophils % (auto) 50.8 % (37.0-80.0); Nucleated Red Blood Cells % 0.2 %; Platelet Count (auto) 157 10^3/uL (140-450); Red Blood Cells 5.82 10^6/uL (4.0-5.20); Red Cell Distribution Width 15.1 % (11.8-14.3); White Blood Cell 7.8 10^3/uL (4.4-10.8)
[2018-06-12 19:37] LABS: Urine Bacteria FEW /hpf (None Seen); Urine Blood Negative /uL (Negative); Urine Specific Gravity 1.008 (1.001-1.035); Urine WBC <1 /hpf (0 - 5)
[2018-06-12 19:44] LABS: Albumin 4.1 g/dL (3.4-5.0); Anion Gap 10 (5-15); Blood Urea Nitrogen 11 mg/dL (7-18); Calcium 9.4 mg/dL (8.5-10.1); Carbon Dioxide 26 mmol/L (21-32); Chloride 106 mmol/L (98-107); Glucose 98 mg/dL (74-106); INR 1.12 (0.9-1.15); Magnesium 1.8 mg/dL (1.6-2.6); Partial Thromboplastin Time 30.9 sec (23.78-33.04); Potassium 3.9 mmol/L (3.5-5.1); Prothrombin Time 11.9 sec (9.27-12.13); Sodium 142 mmol/L (136-145)
[2018-06-12 19:46] LABS: Alanine Aminotransferase 23 U/L (13-56); Aspartate Aminotransferase 17 U/L (15-37); BUN/Creatinine Ratio 13.1; GFR African American 88 mL/min; GFR Non-African American 73 mL/min
[2018-06-12 20:04] LABS: Alkaline Phosphatase 105 U/L (45-117); Bilirubin, Total 0.4 mg/dL (0.2-1.0); Total Protein 7.3 g/dL (6.4-8.2)
[2018-06-12] MEDS ORDERED: GABAPENTIN 400 MG CAP PO ONE (23:45)
[2018-06-13 01:20] VITALS: BP 162/80
[2018-06-13] MEDS ORDERED: IPRATROPIUM BROM 0.5 MG/2.5ML INH SOL NEB ONE (02:30)
[2018-06-13] MEDS ORDERED: ALBUTEROL SULF 2.5 MG/0.5ML(0.5%) NEB SOLN NEB ONE (02:30)
== END 2018-06-13 03:50 | disposition home or self-care (01) ==
LOC: ER 17:24
DX: R60.9 Edema, unspecified (principal); E11.40 Type 2 diabetes mellitus with diabetic neuropathy, unspecified; I50.9 Heart failure, unspecified; I13.0 Hypertensive heart and chronic kidney disease with heart failure and stage 1 through stage 4 chronic kidney disease, or unspecified chronic kidney disease; E11.22 Type 2 diabetes mellitus with diabetic chronic kidney disease; N18.9 Chronic kidney disease, unspecified; I25.2 Old myocardial infarction; E78.00 Pure hypercholesterolemia, unspecified; F17.210 Nicotine dependence, cigarettes, uncomplicated; F12.10 Cannabis abuse, uncomplicated; Z90.49 Acquired absence of other specified parts of digestive tract; Z90.710 Acquired absence of both cervix and uterus; Z88.0 Allergy status to penicillin; Z91.040 Latex allergy status; Z79.899 Other long term (current) drug therapy
CPT/HCPCS: 36415; 71045; 71275; 80053; 81001; 83735; 83880; 84484; 85025; 85379; 85610; 85730; 93005; 93970; 94640; 99285; Q9967

== ENCOUNTER → 2018-07-14 | Outpatient (CLI) | payer MEDICARE, MEDICAID ==
[~2018-07-14] MED LIST changes: +AMLO5TAB13 PO; -AMLO5TAB2 PO
[2018-07-14 13:10] LABS: Albumin 3.7 g/dL (3.4-5.0); BUN/Creatinine Ratio 14.1; Bilirubin, Total 0.3 mg/dL (0.2-1.0); Potassium 3.5 mmol/L (3.5-5.1); Total Protein 6.6 g/dL (6.4-8.2)
== END | disposition home or self-care (01) ==
LOC: LAB 10:56
PROVIDERS: ATTEND Internal Medicine Cardiovascular Disease
DX: I10 Essential (primary) hypertension (principal); Z87.891 Personal history of nicotine dependence
CPT/HCPCS: 36415; 80053

== ENCOUNTER → 2018-08-01 | Outpatient (CLI) | payer MEDICARE, MEDICAID | END | disposition home or self-care (01) | LOC: Rad HDHVI 13:03 | PROVIDERS: ATTEND Internal Medicine Cardiovascular Disease | DX: I11.0 Hypertensive heart disease with heart failure (principal); I50.22 Chronic systolic (congestive) heart failure; E70.0 Classical phenylketonuria | CPT/HCPCS: 93306 ==

== ENCOUNTER → 2018-09-21 | Outpatient (CLI) | payer MEDICARE, MEDICAID ==
[2018-09-21 16:21] LABS: Urine Blood Negative /uL (Negative); Urine Specific Gravity 1.014 (1.001-1.035)
== END | disposition home or self-care (01) ==
LOC: Rad HDHVI 12:09
PROVIDERS: ATTEND Internal Medicine Cardiovascular Disease
DX: N39.0 Urinary tract infection, site not specified (principal); J06.9 Acute upper respiratory infection, unspecified
CPT/HCPCS: 71046; 81003; 87086

== ENCOUNTER 2019-02-15 14:30 | Inpatient (IN) | payer MEDICARE, MEDICAID ==
[~2019-02-15] VITALS: Ht 154.9 cm; Wt 72.4 kg
[2019-02-15 13:00] VITALS: BP 121/63
[~2019-02-15 14:30] MED LIST changes: -ALPR0.25 PO; -AMLO5TAB13 PO; +BUSP7.5T4 PO; +HYDR-4072 PO; -HYDR-4683 PO; -LEVO88TA4 OR; +METF-370 PO; +PREG100C PO; -PREG50CA PO; +RIVA10TA PO; -RIVA15TA PO
[2019-02-15 15:05] LABS: Basophils # (auto) 0 uL; Basophils % (auto) 0.6 % (0.0-2.0); Eosinophils # (auto) 0.1 uL; Eosinophils % (auto) 1.5 % (0.0-7.0); Hematocrit 48.1 % (36.0-46.0); Hemoglobin 15.9 g/dL (12.2-16.2); Lymphocytes # (auto) 2.7 uL; Lymphocytes % (auto) 39.3 % (10.0-50.0); Mean Corpuscular Hemoglobin 27.8 pg (28.0-32.0); Mean Corpuscular Volume 84.3 fL (80.0-100.0); Monocytes # (auto) 0.5 uL; Monocytes % (auto) 7.7 % (0.0-12.0); Neutrophils # (auto) 3.5 uL; Neutrophils % (auto) 50.9 % (37.0-80.0); Nucleated Red Blood Cells % 0.2 %; Platelet Count (auto) 110 10^3/uL (140-450); Red Cell Distribution Width 14.4 % (11.8-14.3); White Blood Cell 6.8 10^3/uL (4.4-10.8)
[2019-02-15 15:22] LABS: Albumin 4.2 g/dL (3.4-5.0); Anion Gap 5 (5-15); Blood Urea Nitrogen 11 mg/dL (7-18); Calcium 8.7 mg/dL (8.5-10.1); Carbon Dioxide 27 mmol/L (21-32); Chloride 108 mmol/L (98-107); Glucose 112 mg/dL (74-106); Potassium 4.2 mmol/L (3.5-5.1); Sodium 140 mmol/L (136-145)
[2019-02-15 15:35] LABS: Alanine Aminotransferase 31 U/L (13-56); Alkaline Phosphatase 128 U/L (45-117); Aspartate Aminotransferase 22 U/L (15-37); BUN/Creatinine Ratio 10.8; Bilirubin, Total 0.4 mg/dL (0.2-1.0); GFR African American 70 mL/min; GFR Non-African American 58 mL/min; Total Protein 7.1 g/dL (6.4-8.2)
[2019-02-15] MEDS ORDERED: ALBUTEROL SULF 2.5 MG/0.5ML(0.5%) NEB SOLN NEB ONE (18:30)
[2019-02-15] MEDS ORDERED: IPRATROPIUM BROM 0.5 MG/2.5ML INH SOL NEB ONE (18:30)
[2019-02-15] MEDS ORDERED: methylPREDNISolone SOD SUCC 125 MG/2 ML VL IV ONE (18:30)
[2019-02-15] MEDS ORDERED: HYDROcodone-ACET 5/325MG TAB PO ONE (19:15)
[2019-02-15 19:43] LABS: INR 1.11 (0.9-1.15); Partial Thromboplastin Time 32.7 sec (23.78-33.04); Prothrombin Time 11.8 sec (9.27-12.13)
[2019-02-15] MEDS ORDERED: cefTRIAXone 1GM/50ML D5W 50 ML IV ONE (20:00)
[2019-02-15] MEDS ORDERED: MORPHINE SULF INJ 2 MG/ML SYRINGE 1ML IV PRN (20:30)
[2019-02-15] MEDS ORDERED: DEXTROSE (50%) 50ML SYRG IV PRN (20:30)
[2019-02-15] MEDS ORDERED: ACETAMINOPHEN 500 MG TAB PO PRN (20:30)
[2019-02-15] MEDS ORDERED: ONDANSETRON HCL 4 MG/2 ML VIAL IV PRN (20:30)
[2019-02-15] MEDS ORDERED: NITROGLYCERIN 0.4 MG SL TAB SL PRN (20:30)
[2019-02-15] MEDS ORDERED: SODIUM CHLORIDE 0.9% 1,000 ML IV ONE (20:45)
[2019-02-15] MEDS: DOXYCYCLINE 100MG/250ML 250 ML IV SCH (21:12)
[2019-02-15 21:41] VITALS: BP 139/75
[2019-02-15] MEDS: IPRATROPIUM BROM 0.5 MG/2.5ML INH SOL NEB SCH (22:00)
[2019-02-15] MEDS ORDERED: GABAPENTIN 300 MG CAP PO SCH (22:00)
[2019-02-15] MEDS: ALBUTEROL SULF 2.5 MG/0.5ML(0.5%) NEB SOLN NEB SCH (22:00)
[2019-02-15] MEDS: busPIRone HCL 10 MG TAB PO SCH (22:00)
[2019-02-15] MEDS: BUDESONIDE (INHALATION) 0.5 MG/2 ML NEB NEB SCH (22:00)
--- NOTE | 2019-02-15 22:25 | NUR ---
Telemetry admit from ER [facility] admitted to Telemetry unit. Patient is A&O X's 4 with mild SOB, audible wheezing. Patient's son is at bedside. Patient reports back pain. Educated patient on pain medication and pain management. Will provide medication as ordered. Patient oriented to MARY ALARCON RN primary RN, unit, room, bed, and unit policies regarding patient care and visiting hours. Patient now on continuous telemetry monitoring, tele box 8. Patient placed on bedside oxygen and HOB elevated, weighed by bedscale and encouraged to call if they need something. All questions and concerns addressed, patient verbalized understanding.
[2019-02-15 22:30] VITALS: BP 137/74
[2019-02-15] MEDS: PREGABALIN 25 MG CAP PO SCH (23:30)
[2019-02-15] MEDS: PREGABALIN CAPSULE 75 MG CAP PO SCH (23:30)
[2019-02-15] MEDS: ZOLPIDEM TARTRATE 5 MG TAB PO SCH (23:31)
[2019-02-15] MEDS: ATORVASTATIN 20 MG TAB PO SCH (23:31)
[2019-02-15] MEDS: PROPRANOLOL HCL 20 MG TAB PO SCH (23:33)
[2019-02-15] MEDS: ACCU-CHEK COMFORT CURVE STRIP VI SCH (23:34)
[2019-02-15] MEDS: InsuLIN REG 1unit/0.01ml Soln (100units/ml) SC SCH (23:34)
[2019-02-16] MEDS ORDERED: ZOLP10TA PO (00:22)
[2019-02-16] MEDS ORDERED: PROP10TA57 PO (00:28)
[2019-02-16] MEDS ORDERED: ATOR20TA PO (00:28)
[2019-02-16] MEDS ORDERED: PREG100C PO (00:28)
[2019-02-16] MEDS ORDERED: HYDR-4683 PO (00:28)
[2019-02-16] MEDS ORDERED: FURO20TA PO (00:31)
[2019-02-16] MEDS ORDERED: POTA10TA51 PO (00:31)
[2019-02-16] MEDS ORDERED: INSU1.2I SC (00:35)
--- NOTE | 2019-02-16 00:38 | NUR ---
INFLUENZA A/B SWAB Sent via bullet system
[2019-02-16] MEDS: MORPHINE SULF INJ 2 MG/ML SYRINGE 1ML IV PRN ×2 (01:00→18:23)
--- NOTE | 2019-02-16 01:00 | NUR ---
NEW IV INSERTED New 22G IV inserted into right forearm with one attempt using clean technique. Patient tolerated procedure well. 20G IV to left hand was removed. Catheter was fully intact and gauze was applied to site. No trauma noted. Patient tolerated it well.
--- NOTE | 2019-02-16 05:00 | NUR ---
PATIENT REFUSED VITALS AT 0500
[2019-02-16 06:24] LABS: Potassium 4.9 mmol/L (3.5-5.1)
[2019-02-16 06:31] LABS: BUN/Creatinine Ratio 15.7; Calcium 8.8 mg/dL (8.5-10.1)
[2019-02-16 06:38] LABS: Cholesterol 163 mg/dL (< 200); HDL Cholesterol 59 mg/dL (40-59); LDL Cholesterol 87 mg/dL (< 100); Triglycerides 100 mg/dL (< 150)
[2019-02-16] MEDS: ACCU-CHEK COMFORT CURVE STRIP VI SCH ×4 (06:40→22:18)
[2019-02-16] MEDS: InsuLIN REG 1unit/0.01ml Soln (100units/ml) SC SCH ×4 (06:41→22:15)
[2019-02-16] MEDS: BUDESONIDE (INHALATION) 0.5 MG/2 ML NEB NEB SCH ×2 (07:00→18:51)
[2019-02-16] MEDS: IPRATROPIUM BROM 0.5 MG/2.5ML INH SOL NEB SCH ×5 (07:00→22:32)
[2019-02-16] MEDS: ALBUTEROL SULF 2.5 MG/0.5ML(0.5%) NEB SOLN NEB SCH ×5 (07:00→22:32)
--- NOTE | 2019-02-16 07:30 | NUR ---
Opening Shift Note Assumed care of patient, awake and alert. No S/S of distress/SOB or pain. Instructed on POC and to call for assist PRN, will continue to monitor for changes Q1hr and PRN.
[2019-02-16 08:00] VITALS: BP 153/73
[2019-02-16] MEDS: DOXYCYCLINE 100MG/250ML 250 ML IV SCH ×2 (08:24→20:52)
--- NOTE | 2019-02-16 08:30 | NUR ---
IV removal IV DC'd with clean sterile technique, catheter fully intact. Pressure dressing applied to site. Patient tolerated well. NOTE:
[2019-02-16 08:56] VITALS: BP 153/73
[2019-02-16 09:05] LABS: Basophils # (auto) 0 uL; Basophils % (auto) 0.4 % (0.0-2.0); Eosinophils # (auto) 0 uL; Hematocrit 46.3 % (36.0-46.0); Lymphocytes # (auto) 1.9 uL; Lymphocytes % (auto) 42.4 % (10.0-50.0); Mean Corpuscular Hemoglobin 27.7 pg (28.0-32.0); Mean Corpuscular Hgb Conc. 32.5 g/dL (32.0-36.0); Mean Corpuscular Volume 85.2 fL (80.0-100.0); Monocytes # (auto) 0.1 uL; Monocytes % (auto) 2.5 % (0.0-12.0); Neutrophils # (auto) 2.5 uL; Neutrophils % (auto) 54.7 % (37.0-80.0); Platelet Count (auto) 85 10^3/uL (140-450); Red Blood Cells 5.43 10^6/uL (4.0-5.20); Red Cell Distribution Width 14.6 % (11.8-14.3); White Blood Cell 4.5 10^3/uL (4.4-10.8)
[2019-02-16] MEDS: PANTOPRAZOLE 40 MG TAB PO SCH (10:08)
[2019-02-16] MEDS: busPIRone HCL 10 MG TAB PO SCH ×2 (10:08→22:13)
[2019-02-16] MEDS: LEVOTHYROXINE SODIUM 100 MCG/5 ML INJ IV SCH (10:08)
[2019-02-16] MEDS: PROPRANOLOL HCL 20 MG TAB PO SCH ×2 (10:10→22:00)
[2019-02-16] MEDS: RIVAROXABAN 10 MG TAB PO SCH (10:10)
[2019-02-16] MEDS: PREGABALIN 25 MG CAP PO SCH ×2 (10:10→22:14)
[2019-02-16] MEDS: LISINOPRIL 20 MG TAB PO SCH (10:11)
[2019-02-16] MEDS: PREGABALIN CAPSULE 75 MG CAP PO SCH ×2 (10:20→22:14)
[2019-02-16] MEDS: HYDROcodone-ACET 5/325MG TAB PO PRN ×2 (10:24→15:29)
[2019-02-16 11:28] VITALS: BP 116/67
--- NOTE | 2019-02-16 11:30 | NUR ---
IV insertion IV access obtained, via clean sterile technique by inserting 20 gauge catheter at LEFT FA after 2 attempt(s). IV secured properly. No trauma to site. Patient tolerated well. NOTE:
[2019-02-16 16:25] VITALS: BP 102/56
--- NOTE | 2019-02-16 18:54 | NUR ---
Respiratory note: TITRATED FIO2 TO 3L AT THIS TIME
--- NOTE | 2019-02-16 19:10 | NUR ---
OPENING NOTE Received report from day shift RN. Patient is resting in bed with no s/s of distress noted. Bed is in lowest/locked position with side rails up X's 2 and call light is within reach of patient. Will continue to monitor for changes and round hourly/PRN.
--- NOTE | 2019-02-16 19:42 | NUR ---
CLOSING NOTES PT RESTING IN BED WITH EYES CLOSED. RESPIRATION EVEN AND UNLABORED. NO DISTRESS NOTED. REPORT GIVEN TO ADRIÁN FRANKEL.
[2019-02-16 22:00] VITALS: BP 115/54
[2019-02-16] MEDS: ZOLPIDEM TARTRATE 5 MG TAB PO SCH (22:14)
[2019-02-16] MEDS: ATORVASTATIN 20 MG TAB PO SCH (22:14)
[2019-02-17 05:00] VITALS: BP 124/68
[2019-02-17] MEDS: IPRATROPIUM BROM 0.5 MG/2.5ML INH SOL NEB SCH ×5 (05:52→23:00)
[2019-02-17] MEDS: ALBUTEROL SULF 2.5 MG/0.5ML(0.5%) NEB SOLN NEB SCH ×5 (05:52→23:01)
[2019-02-17] MEDS: ACCU-CHEK COMFORT CURVE STRIP VI SCH ×4 (06:31→22:17)
[2019-02-17] MEDS: InsuLIN REG 1unit/0.01ml Soln (100units/ml) SC SCH ×4 (06:31→22:00)
--- NOTE | 2019-02-17 08:00 | NUR ---
PT RESTING IN BED, NO DISTRESS NOTED. PT ENCOURAGED TO USE CALL LIGHT PRN. PT REPORTS SHE CAN AMBULATE INDEPENDENTLY TO BATHROOM. SIDE RAILS UP X2, BED IN LOWEST LOCKED POSITION, WILL CONTINUE TO MONITOR.
[2019-02-17 09:00] VITALS: BP 131/65
[2019-02-17] MEDS: DOXYCYCLINE 100MG/250ML 250 ML IV SCH ×2 (09:31→20:34)
[2019-02-17] MEDS: RIVAROXABAN 10 MG TAB PO SCH (09:34)
[2019-02-17] MEDS: busPIRone HCL 10 MG TAB PO SCH ×2 (09:36→22:10)
[2019-02-17] MEDS: PANTOPRAZOLE 40 MG TAB PO SCH (09:36)
[2019-02-17] MEDS: PREGABALIN 25 MG CAP PO SCH ×2 (09:37→22:11)
[2019-02-17] MEDS: PROPRANOLOL HCL 20 MG TAB PO SCH ×2 (09:38→22:00)
[2019-02-17] MEDS: HYDROcodone-ACET 5/325MG TAB PO PRN ×2 (09:38→17:00)
[2019-02-17] MEDS: LISINOPRIL 20 MG TAB PO SCH (09:39)
[2019-02-17] MEDS: LEVOTHYROXINE SODIUM 100 MCG/5 ML INJ IV SCH (09:40)
[2019-02-17] MEDS: PREGABALIN CAPSULE 75 MG CAP PO SCH ×2 (09:57→22:11)
[2019-02-17] MEDS: BUDESONIDE (INHALATION) 0.5 MG/2 ML NEB NEB SCH ×2 (10:58→19:22)
[2019-02-17 13:00] VITALS: BP 121/63
[2019-02-17 16:39] VITALS: BP 141/70
--- NOTE | 2019-02-17 19:00 | NUR ---
OPENING NOTE Received report from day shift RN. Patient is A&O X's 4 with no s/s of distress noted. Patient's son is at bedside. Educated patient on POC and to use call light when in need of assistance. Patient verbalized understanding. Bed is in lowest/locked position with side rails up X's 2 and call light is within reach. Will continue to monitor for changes and round hourly/PRN.
[2019-02-17 21:48] VITALS: BP 155/65
[2019-02-17] MEDS: ZOLPIDEM TARTRATE 5 MG TAB PO SCH (22:11)
[2019-02-17] MEDS: ATORVASTATIN 20 MG TAB PO SCH (22:11)
[2019-02-18 04:48] VITALS: BP 132/49
[2019-02-18] MEDS: IPRATROPIUM BROM 0.5 MG/2.5ML INH SOL NEB SCH ×5 (06:18→22:55)
[2019-02-18] MEDS: ALBUTEROL SULF 2.5 MG/0.5ML(0.5%) NEB SOLN NEB SCH ×5 (06:18→22:55)
[2019-02-18] MEDS: ACCU-CHEK COMFORT CURVE STRIP VI SCH ×4 (06:21→22:00)
[2019-02-18] MEDS: InsuLIN REG 1unit/0.01ml Soln (100units/ml) SC SCH ×4 (06:21→22:00)
[2019-02-18 08:19] VITALS: BP 145/64
--- NOTE | 2019-02-18 08:24 | NUR ---
PT RESTING IN BED, NO DISTRESS NOTED. PT REPORTS SHE DOES NOT LIKE HER BREAKFAST. PT REQUESTS HARD BOILED EGGS, REQUEST SENT TO DIETARY. PT DENIES ANY PAIN AT THIS TIME. PT ASKED TO REPORTS WHEN SHE VOIDS. PT REPORTED SHE HAS NO DIFFICULTY VOIDING, SHE REPORTS SHE, "JUST DOESN'T HAVE TO GO OFTEN." PT REPORTS SHE VOIDED LAST NIGHT AND THIS MORNING. WILL CONTINUE TO MONITOR.
[2019-02-18] MEDS: DOXYCYCLINE 100MG/250ML 250 ML IV SCH ×2 (09:19→20:59)
[2019-02-18] MEDS: LEVOTHYROXINE SODIUM 100 MCG/5 ML INJ IV SCH (09:19)
[2019-02-18] MEDS: PANTOPRAZOLE 40 MG TAB PO SCH (09:20)
[2019-02-18] MEDS: LISINOPRIL 20 MG TAB PO SCH (09:22)
[2019-02-18] MEDS: PREGABALIN 25 MG CAP PO SCH ×2 (09:23→21:02)
[2019-02-18] MEDS: RIVAROXABAN 10 MG TAB PO SCH (09:23)
[2019-02-18] MEDS: busPIRone HCL 10 MG TAB PO SCH ×2 (09:24→21:03)
[2019-02-18] MEDS: PROPRANOLOL HCL 20 MG TAB PO SCH ×2 (09:29→21:20)
[2019-02-18] MEDS: HYDROcodone-ACET 5/325MG TAB PO PRN (09:38)
[2019-02-18] MEDS: BUDESONIDE (INHALATION) 0.5 MG/2 ML NEB NEB SCH ×2 (10:14→18:41)
[2019-02-18] MEDS: PREGABALIN CAPSULE 75 MG CAP PO SCH ×2 (11:37→21:55)
--- NOTE | 2019-02-18 11:55 | NUR ---
LEFT MESSAGE FOR DR NICOLE NOTIFYING MD PATIENT IS REQUESTING TO SEE HIM AND PT HEART RATE HAS BEEN RUNNING IN THE 50'S. PT DENIES SOB AND DIZZINESS AND DENIES SYMPTOMS. MD AWARE AND REPORTS HE WILL BE IN TO SEE PT TODAY, WILL CONTINUE TO MONITOR.
[2019-02-18 13:00] VITALS: BP 134/76
--- NOTE | 2019-02-18 13:54 | NUR ---
DR NICOLE SAW PATIENT, ORDERS FOR NEW MEDICATIONS. SPOKE WITH PATIENT AND DISCUSSED POC. MD NOTIFIED PT VOIDED ONCE YESTERDAY, MD AWARE, NO NEW ORDERS, WILL CONTINUE TO MONITOR.
[2019-02-18] MEDS: GABAPENTIN 300 MG CAP PO SCH ×2 (14:44→21:04)
[2019-02-18] MEDS: KETOROLAC TROMETH 30 MG/ML 1ML VIAL IV PRN ×2 (14:44→21:22)
--- NOTE | 2019-02-18 15:26 | NUR ---
PT REPORTS IV IS BURNING. ERYTHEMA AND BLOOD NOTED AT IV SITE. IV DISCONTINUED. PRESSURE DRESSING APPLIED. NEW IV STARTED ON LEFT WRIST, 22 G, USING STERILE TECHNIQUE. PT TOLERATED PROCEDURE WELL, WILL CONTINUE TO MONITOR.
[2019-02-18 17:00] VITALS: BP 136/68
--- NOTE | 2019-02-18 20:36 | NUR ---
OPENING SHIFT NOTE ASSUMED CARE OF PATIENT FROM DAY SHIFT ADRIÁN SPENCE. PATIENT IS A/O X4 WITH EVEN AND UNLABORED RESPIRATIONS. SHE DENIES ANY SOB AT THIS TIME AND REFUSES HER O2 STATING "I AM FINE RIGHT NOW. I JUST HAD A BREATHING TREATMENT". O2 SAT IS 97% ON RA. PATIENT EDUCATED TO CALL IF STARTS TO FEEL SOB. PATIENT ALSO STATES 5/10 PAIN IN FEET. SHE STATES THAT SHE HAS TERRIBLE NEUROPATHY IN HER FEET. BED IN LOWEST POSITION, LOCKED, AND CALL LIGHT IS IN REACH. PATIENT INSTRUCTED ON POC AND TO CALL FOR ASSIST PRN. WILL CONTINUE TO MONITOR.
[2019-02-18] MEDS: methylPREDNISolone SOD SUCC 40 MG/ML VL IV SCH (21:02)
[2019-02-18] MEDS: ZOLPIDEM TARTRATE 5 MG TAB PO SCH (21:03)
[2019-02-18] MEDS: ATORVASTATIN 20 MG TAB PO SCH (21:04)
[2019-02-18 22:00] VITALS: BP 145/74
[2019-02-19 01:09] VITALS: BP 145/74
[2019-02-19 04:58] VITALS: BP 161/94
[2019-02-19] MEDS: GABAPENTIN 300 MG CAP PO SCH ×3 (05:30→21:32)
[2019-02-19] MEDS: InsuLIN REG 1unit/0.01ml Soln (100units/ml) SC SCH ×4 (06:28→21:51)
[2019-02-19] MEDS: ACCU-CHEK COMFORT CURVE STRIP VI SCH ×4 (06:29→21:51)
[2019-02-19] MEDS: KETOROLAC TROMETH 30 MG/ML 1ML VIAL IV PRN (06:29)
[2019-02-19] MEDS: ALBUTEROL SULF 2.5 MG/0.5ML(0.5%) NEB SOLN NEB SCH ×5 (06:48→22:54)
[2019-02-19] MEDS: BUDESONIDE (INHALATION) 0.5 MG/2 ML NEB NEB SCH ×2 (06:49→19:05)
[2019-02-19] MEDS: IPRATROPIUM BROM 0.5 MG/2.5ML INH SOL NEB SCH ×5 (06:49→22:54)
[2019-02-19 08:00] VITALS: BP 158/77
[2019-02-19] MEDS: LEVOTHYROXINE SODIUM 100 MCG/5 ML INJ IV SCH (09:34)
[2019-02-19] MEDS: POTASSIUM CHL 20 Meq TABLET PO SCH (09:35)
[2019-02-19] MEDS: methylPREDNISolone SOD SUCC 40 MG/ML VL IV SCH ×2 (09:35→21:51)
[2019-02-19] MEDS: PANTOPRAZOLE 40 MG TAB PO SCH (09:35)
[2019-02-19] MEDS: FUROSEMIDE 40 MG/4 ML VIAL IV SCH (09:35)
[2019-02-19] MEDS: LISINOPRIL 20 MG TAB PO SCH (09:36)
[2019-02-19] MEDS: PREGABALIN CAPSULE 75 MG CAP PO SCH ×2 (09:36→21:30)
[2019-02-19] MEDS: busPIRone HCL 10 MG TAB PO SCH ×2 (09:36→21:32)
[2019-02-19] MEDS: PREGABALIN 25 MG CAP PO SCH ×2 (09:36→21:32)
[2019-02-19] MEDS: PROPRANOLOL HCL 20 MG TAB PO SCH ×2 (09:37→21:32)
[2019-02-19] MEDS: DOXYCYCLINE 100MG/250ML 250 ML IV SCH ×2 (09:38→21:00)
[2019-02-19] MEDS: RIVAROXABAN 10 MG TAB PO SCH (09:42)
[2019-02-19] MEDS: MORPHINE SULF INJ 2 MG/ML SYRINGE 1ML IV PRN (10:06)
--- NOTE | 2019-02-19 11:06 | NUR ---
Nutrition Assessment Notes please see attached link for complete assessment Est. Needs ABW 59 [id number] kcal (23-25 kcal/kgBW), 59-65 gms pro (1.0-1.1 gms/kgBW). Will continue to monitor pertinent labs and reassess nutrient needs prn Addendum: 02/19/19 at [address] Amended: Links added.
[2019-02-19 13:00] VITALS: BP 152/74
[2019-02-19] MEDS: HYDROcodone-ACET 5/325MG TAB PO PRN ×2 (15:54→22:13)
[2019-02-19 17:00] VITALS: BP 144/67
--- NOTE | 2019-02-19 21:15 | NUR ---
OPENING SHIFT NOTE ASSUMED CARE OF PATIENT FROM DAY SHIFT RN TANIA. PATIENT IS A/O X4 WITH EVEN AND UNLABORED RESPIRATIONS. SHE DENIES ANY SOB AT THIS TIME AND STILL DOES NOT WANT HER O2 ON. O2 SAT IS 94% ON RA, AND EXPIRATORY WHEEZES ARE IMPROVING. PATIENT EDUCATED TO CALL IF STARTS TO FEEL SOB. PATIENT DENIES ANY PAIN AT THIS TIME. BED IN LOWEST POSITION, LOCKED, AND CALL LIGHT IS IN REACH. PATIENT INSTRUCTED ON POC AND TO CALL FOR ASSIST PRN. WILL CONTINUE TO MONITOR.
[2019-02-19] MEDS: ATORVASTATIN 20 MG TAB PO SCH (21:32)
[2019-02-19] MEDS: ZOLPIDEM TARTRATE 5 MG TAB PO SCH (21:32)
[2019-02-19 22:00] VITALS: BP 125/86
[2019-02-20] MEDS: HYDROcodone-ACET 5/325MG TAB PO PRN ×2 (04:09→18:52)
[2019-02-20] MEDS: IPRATROPIUM BROM 0.5 MG/2.5ML INH SOL NEB SCH ×5 (05:35→22:33)
[2019-02-20] MEDS: ALBUTEROL SULF 2.5 MG/0.5ML(0.5%) NEB SOLN NEB SCH ×5 (05:35→22:33)
--- NOTE | 2019-02-20 05:46 | NUR ---
BLOOD PRESSURE AM BP WAS 177/94 WITH A HR OF 58. TOOK AGAIN AND LOWEST WAS 158/82. HOSPITALIST Mick VILLASEÑOR AWARE AND STATED TO ASK BONNIE FIRST. MESSAGE LEFT WITH BONNIE. WILL CONTINUE TO MONITOR.
[2019-02-20 05:55] VITALS: BP_SYST 127; BP_SYST 158; BP_DIAS 63; BP_DIAS 82
[2019-02-20] MEDS: GABAPENTIN 300 MG CAP PO SCH ×3 (05:59→21:09)
[2019-02-20] MEDS: InsuLIN REG 1unit/0.01ml Soln (100units/ml) SC SCH ×4 (06:02→21:23)
[2019-02-20] MEDS: ACCU-CHEK COMFORT CURVE STRIP VI SCH ×4 (06:03→21:24)
[2019-02-20] MEDS: MORPHINE SULF INJ 2 MG/ML SYRINGE 1ML IV PRN ×3 (06:32→21:56)
--- NOTE | 2019-02-20 07:23 | NUR ---
OPENING NOTE ASSUMED CARE OF PT. PT IS LAYING ON BED, HOB SEMI-FOWLERS. ALERT AND AWAKE. ON ROOM AIR. NO SIGNS OF SOB/DISTRESS NOTED. PT ON TELE #8. SAFETY PRECAUTIONS IN PLACE INCLUDING, BED SET TO LOWEST POSITION/LOCKED. BEDSIDE RAILS UP X2. CALL LIGHT WITHIN REACH. INSTRUCTED PT TO CALL FOR ASSISTANCE. DISCUSSED POC WITH PT. PT VERBALIZED UNDERSTANDING. WILL CONTINUE TO MONITOR Q 1HR AND PRN.
[2019-02-20 08:35] VITALS: BP 154/77
--- NOTE | 2019-02-20 09:45 | NUR ---
Midline Placement: Patient educated on need for midline placement. All risks and benefits explained and all questions and concerns addresses prior to procedure. 18g/10cm midline inserted via right basilic vein using Ultrasound. Sterile technique utilized. Blood return obtained from single lumen and flushed easily with NS using proper technique. Midline secured with saline lock; biodisc and occlusive dressing applied. Primary RN notified. Midline lot #[id number].
[2019-02-20] MEDS: PROPRANOLOL HCL 20 MG TAB PO SCH ×2 (10:00→21:10)
[2019-02-20] MEDS: BUDESONIDE (INHALATION) 0.5 MG/2 ML NEB NEB SCH ×2 (10:15→19:03)
[2019-02-20] MEDS: methylPREDNISolone SOD SUCC 40 MG/ML VL IV SCH ×2 (10:24→21:08)
[2019-02-20] MEDS: FUROSEMIDE 40 MG/4 ML VIAL IV SCH (10:24)
[2019-02-20] MEDS: LEVOTHYROXINE SODIUM 100 MCG/5 ML INJ IV SCH (10:24)
[2019-02-20] MEDS: PANTOPRAZOLE 40 MG TAB PO SCH (10:25)
[2019-02-20] MEDS: POTASSIUM CHL 20 Meq TABLET PO SCH (10:25)
[2019-02-20] MEDS: PREGABALIN 25 MG CAP PO SCH ×2 (10:25→21:12)
[2019-02-20] MEDS: PREGABALIN CAPSULE 75 MG CAP PO SCH ×2 (10:25→21:19)
[2019-02-20] MEDS: RIVAROXABAN 10 MG TAB PO SCH (10:25)
[2019-02-20] MEDS: LISINOPRIL 20 MG TAB PO SCH (10:26)
[2019-02-20] MEDS: busPIRone HCL 10 MG TAB PO SCH ×2 (10:27→21:09)
[2019-02-20] MEDS: DOXYCYCLINE 100MG/250ML 250 ML IV SCH ×2 (10:28→21:08)
[2019-02-20 12:27] VITALS: BP 158/70
[2019-02-20 17:13] VITALS: BP 156/76
--- NOTE | 2019-02-20 19:10 | NUR ---
ENDORSED CARE TO ADRIÁN PERKINS.
--- NOTE | 2019-02-20 19:15 | NUR ---
OPENING SHIFT NOTE ASSUMED CARE OF PATIENT FROM DAY SHIFT RN DEJA. PATIENT IS A/O X4 WITH EVEN AND UNLABORED RESPIRATIONS. SHE DENIES ANY SOB AT THIS TIME AND STILL DOES NOT WANT HER O2 ON. O2 SAT IS 95% ON RA. EXPIRATORY WHEEZES ARE IMPROVING, BUT THEY ARE STILL PRESENT IN BILATERAL LOWER LOBES. PATIENT EDUCATED TO CALL IF STARTS TO FEEL SOB. PATIENT STATES TOLERABLE PAIN 4/10 AT THIS TIME. BED IN LOWEST POSITION, LOCKED, AND CALL LIGHT IS IN REACH. PATIENT INSTRUCTED ON POC AND TO CALL FOR ASSIST PRN. WILL CONTINUE TO MONITOR.
[2019-02-20] MEDS: ZOLPIDEM TARTRATE 5 MG TAB PO SCH (21:12)
[2019-02-20] MEDS: ATORVASTATIN 20 MG TAB PO SCH (21:13)
[2019-02-20 21:30] VITALS: BP 152/93
[2019-02-21 05:00] VITALS: BP 165/91
[2019-02-21] MEDS: GABAPENTIN 300 MG CAP PO SCH (05:03)
[2019-02-21] MEDS: MORPHINE SULF INJ 2 MG/ML SYRINGE 1ML IV PRN (05:03)
[2019-02-21] MEDS: IPRATROPIUM BROM 0.5 MG/2.5ML INH SOL NEB SCH ×3 (05:53→13:47)
[2019-02-21] MEDS: ALBUTEROL SULF 2.5 MG/0.5ML(0.5%) NEB SOLN NEB SCH ×3 (05:53→13:47)
[2019-02-21] MEDS: InsuLIN REG 1unit/0.01ml Soln (100units/ml) SC SCH (06:20)
[2019-02-21] MEDS: ACCU-CHEK COMFORT CURVE STRIP VI SCH (06:20)
--- NOTE | 2019-02-21 07:15 | NUR ---
CARE TRANSFERRED TO DAY SHIFT ADRIÁN SHORT
--- NOTE | 2019-02-21 07:30 | NUR ---
OPENING NOTE ASSUMED CARE OF PT. PT IS LAYING ON BED, HOB LOW-FOWLERS. ALERT AND AWAKE. ON ROOM AIR. NO SIGNS OF SOB/DISTRESS NOTED. PT ON TELE #8. SAFETY PRECAUTIONS IN PLACE INCLUDING, BED SET TO LOWEST POSITION/LOCKED. BEDSIDE RAILS UP X2. CALL LIGHT WITHIN REACH. INSTRUCTED PT TO CALL FOR ASSISTANCE. DISCUSSED POC WITH PT. PT VERBALIZED UNDERSTANDING. WILL CONTINUE TO MONITOR Q 1HR AND PRN.
[2019-02-21 08:42] VITALS: BP 168/80
[2019-02-21] MEDS: LEVOTHYROXINE SODIUM 100 MCG/5 ML INJ IV SCH (09:10)
[2019-02-21] MEDS: methylPREDNISolone SOD SUCC 40 MG/ML VL IV SCH (09:10)
[2019-02-21] MEDS: FUROSEMIDE 40 MG/4 ML VIAL IV SCH (09:10)
[2019-02-21] MEDS: PANTOPRAZOLE 40 MG TAB PO SCH (09:11)
[2019-02-21] MEDS: PREGABALIN CAPSULE 75 MG CAP PO SCH (09:11)
[2019-02-21] MEDS: POTASSIUM CHL 20 Meq TABLET PO SCH (09:11)
[2019-02-21] MEDS: PREGABALIN 25 MG CAP PO SCH (09:11)
[2019-02-21] MEDS: busPIRone HCL 10 MG TAB PO SCH (09:11)
[2019-02-21] MEDS: PROPRANOLOL HCL 20 MG TAB PO SCH (09:11)
[2019-02-21] MEDS: LISINOPRIL 20 MG TAB PO SCH (09:12)
[2019-02-21] MEDS: RIVAROXABAN 10 MG TAB PO SCH (09:12)
[2019-02-21] MEDS ORDERED: DOXYCYCLINE 100 MG TAB/CAP PO SCH (10:00)
[2019-02-21] MEDS: BUDESONIDE (INHALATION) 0.5 MG/2 ML NEB NEB SCH (10:04)
[2019-02-21 10:39] VITALS: BP 168/60
--- NOTE | 2019-02-21 11:25 | NUR ---
Discharge instructions and paperwork given as MD ordered. Encourage to follow up with Dr. Jeffers on 03/01/19 at 11:00AM. [id number] [place] [id number]. . All questions and concerns addressed. Patient verbalized understanding. IV removed with catheter intact, pressure dressing applied. Telemetry unit returned to ICU.
[2019-02-21 11:32] VITALS: BP 138/71
--- NOTE | 2019-02-21 13:31 | NUR ---
Patient taken to vehicle via wheelchair with all personal belongings, accompanied by staff and family member. No distress noted at time of departure.
--- NOTE | 2019-02-21 16:40 | NUR ---
PRESCRIPTION CALLED INTO [facility] , SPOKE TO JYOTI PHARMACIST
[2019-02-23] MEDS ORDERED: HYDROcodone-ACET 5/325MG TAB PO PRN (14:00)
== END 2019-02-21 13:20 | disposition home or self-care (01) | DRG 193 ==
LOC: ER 14:51 → TELE 20:28 → TELE-WESTW 21:51
PROVIDERS: ADMIT Nurse Practitioner Acute Care; ATTEND Internal Medicine Cardiovascular Disease
DX: J18.9 Pneumonia, unspecified organism (principal); J96.00 Acute respiratory failure, unspecified whether with hypoxia or hypercapnia; J44.1 Chronic obstructive pulmonary disease with (acute) exacerbation; J44.0 Chronic obstructive pulmonary disease with (acute) lower respiratory infection; D69.6 Thrombocytopenia, unspecified; E78.00 Pure hypercholesterolemia, unspecified; E78.5 Hyperlipidemia, unspecified; E89.0 Postprocedural hypothyroidism; F17.210 Nicotine dependence, cigarettes, uncomplicated; I10 Essential (primary) hypertension; E11.42 Type 2 diabetes mellitus with diabetic polyneuropathy; J20.9 Acute bronchitis, unspecified; I25.10 Atherosclerotic heart disease of native coronary artery without angina pectoris; K21.9 Gastro-esophageal reflux disease without esophagitis; Z79.01 Long term (current) use of anticoagulants; Z79.84 Long term (current) use of oral hypoglycemic drugs; Z79.899 Other long term (current) drug therapy; Z80.1 Family history of malignant neoplasm of trachea, bronchus and lung; Z82.3 Family history of stroke; Z82.49 Family history of ischemic heart disease and other diseases of the circulatory system; Z83.3 Family history of diabetes mellitus; Z86.718 Personal history of other venous thrombosis and embolism; Z90.710 Acquired absence of both cervix and uterus; Z91.19 Patient's noncompliance with other medical treatment and regimen; Z95.5 Presence of coronary angioplasty implant and graft
CPT/HCPCS: 36415; 71045; 71046; 80048; 80053; 80061; 82962; 83036; 83880; 84443; 84484; 85025; 85610; 85730; 87804; 93005; 94640; 96365; 96367; 96375; A6257; G0378; J0696; J1815; J1885; J3490

== ENCOUNTER 2019-02-27 22:59 | Inpatient (IN) | payer MEDICARE, MEDICAID ==
[~2019-02-27] VITALS: Ht 157.5 cm; Wt 66.8 kg
[~2019-02-27 22:59] MED LIST changes: -ESCI20TA51 PO; +FURO20TA PO; -HYDR-4072 PO; +HYDR-4683 PO; +INSU1.2I SC; -LOSA100T22 PO; -METO-281 PO; +POTA10TA51 PO; -POTA20TA53 PO; +PROP10TA57 PO; -PROP1CAP PO; -SITA50TA PO; -TRAZ100T2 PO
[2019-02-28 01:13] LABS: Hematocrit 46.1 % (36.0-46.0); Hemoglobin 15.1 g/dL (12.2-16.2); Mean Corpuscular Hemoglobin 27.8 pg (28.0-32.0); Mean Corpuscular Hgb Conc. 32.8 g/dL (32.0-36.0); Mean Corpuscular Volume 84.6 fL (80.0-100.0); Platelet Count (auto) 176 10^3/uL (140-450); Red Blood Cells 5.45 10^6/uL (4.0-5.20); Red Cell Distribution Width 13.9 % (11.8-14.3); White Blood Cell 12.3 10^3/uL (4.4-10.8)
[2019-02-28 01:21] LABS: Basophils % (manual) 0 (0.0-2.0); Blast Cells 0; Eosinophils % (manual) 0 (0-7); Metamyelocytes % 0; Myelocytes % 0; Promyelocytes % 0; Reactive Lymphocytes 0
[2019-02-28 01:28] LABS: Albumin 3.9 g/dL (3.4-5.0); BUN/Creatinine Ratio 20.8; Calcium 9.4 mg/dL (8.5-10.1); Potassium 4.8 mmol/L (3.5-5.1)
[2019-02-28 01:31] LABS: Bilirubin, Total 0.6 mg/dL (0.2-1.0); Total Protein 6.7 g/dL (6.4-8.2)
[2019-02-28 02:27] LABS: Band Neutrophils % (manual) 6; Lymphocytes % (manual) 34 (10.0-50.0); Monocytes % (manual) 4 (0-12)
[2019-02-28] MEDS ORDERED: IPRATROPIUM BROM 0.5 MG/2.5ML INH SOL NEB ONE (05:15)
[2019-02-28] MEDS ORDERED: ALBUTEROL SULF 2.5 MG/0.5ML(0.5%) NEB SOLN NEB ONE (05:15)
[2019-02-28] MEDS ORDERED: HYDROcodone-ACET 5/325MG TAB PO ONE (08:00)
[2019-02-28] MEDS ORDERED: ACETAMINOPHEN 500 MG TAB PO PRN (09:00)
[2019-02-28] MEDS ORDERED: DEXTROSE (50%) 50ML SYRG IV PRN (09:00)
[2019-02-28] MEDS ORDERED: cloNIDine HCL 0.1 MG TAB PO PRN (09:00)
[2019-02-28] MEDS ORDERED: NITROGLYCERIN 0.4 MG SL TAB SL PRN (09:00)
[2019-02-28] MEDS ORDERED: MORPHINE SULF INJ 2 MG/ML SYRINGE 1ML IV PRN (09:00)
[2019-02-28] MEDS ORDERED: ONDANSETRON HCL 4 MG/2 ML VIAL IV PRN (09:00)
--- NOTE | 2019-02-28 11:11 | NUR ---
Midline Placement Patient educated on need for midline placement. All risks and benefits explained and all questions and concerns addresses prior to procedure. 18g/8cm midline inserted via Right Basilic vein using Ultrasound. Sterile technique utilized. Blood return obtained from single lumen and flushed easily with NS using proper technique. Midline secured with saline lock; biodisc and occlusive dressing applied. Primary RN notified. Midline lot #[id number].
[2019-02-28] MEDS: FUROSEMIDE 20 MG TAB PO SCH (11:17)
[2019-02-28] MEDS: busPIRone HCL 10 MG TAB PO SCH ×2 (11:17→21:28)
[2019-02-28] MEDS: FAMOTIDINE 20 MG TAB PO SCH ×2 (11:18→21:29)
[2019-02-28] MEDS: LISINOPRIL 20 MG TAB PO SCH ×2 (11:18→21:29)
[2019-02-28] MEDS: PREGABALIN 25 MG CAP PO SCH ×2 (11:18→21:29)
[2019-02-28] MEDS: ALBUTEROL SULF 2.5 MG/0.5ML(0.5%) NEB SOLN NEB SCH ×2 (11:45→19:14)
[2019-02-28] MEDS: IPRATROPIUM BROM 0.5 MG/2.5ML INH SOL NEB SCH ×2 (11:45→19:14)
[2019-02-28] MEDS: BUDESONIDE (INHALATION) 0.5 MG/2 ML NEB NEB SCH ×2 (11:45→19:14)
[2019-02-28] MEDS: ACCU-CHEK COMFORT CURVE STRIP VI SCH ×3 (11:46→22:37)
[2019-02-28] MEDS: InsuLIN REG 1unit/0.01ml Soln (100units/ml) SC SCH ×3 (11:47→22:38)
--- NOTE | 2019-02-28 13:20 | NUR ---
Telemetry admit from ER GERMAINE DAY admitted to Telemetry unit. No SBAR received. Patient oriented to THOR VIZCAINO RN primary RN, unit, room, bed, and unit policies regarding patient care and visiting hours. Patient now on continuous telemetry monitoring, tele box # 45 and telemetry reading on arrival to unit is sinus rhythm 80. No signs or symptoms of distress noted at this time. Patient is on room air, respirations even and unlabored. Physical assessment performed. Patient states generalized pain, requesting pain medications. Will mediate per orders. Patient encouraged to call for assistance. All questions and concerns addressed, patient verbalized understanding. Bed in low and locked position, call light within reach. Will continue to monitor Q1 hour and PRN.
[2019-02-28] MEDS: MORPHINE SULF INJ 2 MG/ML SYRINGE 1ML IV PRN ×2 (14:25→20:50)
[2019-02-28] MEDS: hydrALAZINE HCL 25 MG TAB PO SCH ×2 (14:26→21:29)
[2019-02-28 14:30] VITALS: BP 179/77
--- NOTE | 2019-02-28 14:50 | NUR ---
MRSA SWAB Collected and sent to lab
[2019-02-28 16:59] VITALS: BP 137/79
[2019-02-28 18:10] LABS: Urine Bacteria NONE SEEN /hpf (None Seen); Urine Blood Negative /uL (Negative); Urine Specific Gravity 1.011 (1.001-1.035); Urine WBC 1 /hpf (0 - 5)
--- NOTE | 2019-02-28 19:15 | NUR ---
Opening Shift Note Received report and assumed care of patient awake and alert. No S/S of distress/SOB or pain. Instructed patient to call for assist if needed and verbalized understanding .Will continue to monitor .
--- NOTE | 2019-02-28 19:23 | NUR ---
Closing Note Report given to assistant casino shift manager RN. No signs or symptoms of distress noted at this time.
[2019-02-28 20:00] VITALS: BP 105/62
[2019-02-28] MEDS ORDERED: BUSP5TAB51 PO (21:34)
[2019-02-28] MEDS ORDERED: ZOLP10TA PO (21:34)
[2019-02-28 22:00] VITALS: BP 134/53
[2019-02-28] MEDS ORDERED: TEMAZEPAM 15 MG CAP PO ONE (22:45)
[2019-03-01] VITALS (7 sets, daily range): BP systolic 108–134; BP diastolic 51–79
[2019-03-01] MEDS: IPRATROPIUM BROM 0.5 MG/2.5ML INH SOL NEB SCH ×3 (05:59→18:04)
[2019-03-01] MEDS: ALBUTEROL SULF 2.5 MG/0.5ML(0.5%) NEB SOLN NEB SCH ×3 (05:59→18:04)
[2019-03-01] MEDS: ACCU-CHEK COMFORT CURVE STRIP VI SCH ×3 (06:43→17:05)
[2019-03-01] MEDS: InsuLIN REG 1unit/0.01ml Soln (100units/ml) SC SCH ×3 (06:44→17:05)
[2019-03-01 07:01] LABS: Basophils # (auto) 0.1 uL; Basophils % (auto) 1.4 % (0.0-2.0); Eosinophils # (auto) 0 uL; Eosinophils % (auto) 0.3 % (0.0-7.0); Hematocrit 46.6 % (36.0-46.0); Hemoglobin 15.3 g/dL (12.2-16.2); Lymphocytes # (auto) 4.2 uL; Lymphocytes % (auto) 53.2 % (10.0-50.0); Mean Corpuscular Hemoglobin 27.6 pg (28.0-32.0); Mean Corpuscular Hgb Conc. 32.8 g/dL (32.0-36.0); Mean Corpuscular Volume 84.2 fL (80.0-100.0); Monocytes # (auto) 0.5 uL; Monocytes % (auto) 6.4 % (0.0-12.0); Neutrophils # (auto) 3.1 uL; Neutrophils % (auto) 38.7 % (37.0-80.0); Nucleated Red Blood Cells % 0.2 %; Platelet Count (auto) 148 10^3/uL (140-450); Red Blood Cells 5.54 10^6/uL (4.0-5.20); Red Cell Distribution Width 14.6 % (11.8-14.3)
--- NOTE | 2019-03-01 07:14 | NUR ---
Opening Note Received report from warehouse worker 2nd shift RN. Patient is awake, alert and oriented x4. No signs or symptoms of distress noted at this time. Patient is on room air, respirations even and unlabored. Patient states pain in her back and head 8/10, requesting pain medication. Will medicate per orders. Reviewed plan of care with patient, patient verbalized understanding. Bed in low and locked position, call light within reach. Will continue to monitor Q1 hour and PRN.
[2019-03-01] MEDS: hydrALAZINE HCL 25 MG TAB PO SCH ×3 (07:20→20:53)
[2019-03-01] MEDS: MORPHINE SULF INJ 2 MG/ML SYRINGE 1ML IV PRN ×3 (08:02→21:35)
[2019-03-01 08:50] LABS: BUN/Creatinine Ratio 16.2; Calcium 8.7 mg/dL (8.5-10.1); Potassium 3.7 mmol/L (3.5-5.1)
[2019-03-01] MEDS: busPIRone HCL 10 MG TAB PO SCH ×2 (10:23→20:53)
[2019-03-01] MEDS: FUROSEMIDE 20 MG TAB PO SCH (10:23)
[2019-03-01] MEDS: FAMOTIDINE 20 MG TAB PO SCH ×2 (10:24→20:54)
[2019-03-01] MEDS: LISINOPRIL 20 MG TAB PO SCH ×2 (10:24→20:54)
[2019-03-01] MEDS: PREGABALIN 25 MG CAP PO SCH ×2 (10:24→20:54)
[2019-03-01] MEDS: BUDESONIDE (INHALATION) 0.5 MG/2 ML NEB NEB SCH ×2 (11:53→18:04)
--- NOTE | 2019-03-01 19:03 | NUR ---
Closing Note Report given to manufacturing supervisor 2nd shift RN. No signs or symptoms of distress noted at this time.
--- NOTE | 2019-03-01 22:24 | NUR ---
Called/paged paged re: patient requesting sleeping medication . Waiting for call back. Continue care.
--- NOTE | 2019-03-01 23:56 | NUR ---
Called/paged again paged through his exchange re: patient requesting sleeping medication. Waiting for call back. Continue care.
[2019-03-02] MEDS: InsuLIN REG 1unit/0.01ml Soln (100units/ml) SC SCH ×5 (00:28→22:49)
[2019-03-02] MEDS: ACCU-CHEK COMFORT CURVE STRIP VI SCH ×5 (00:28→22:50)
--- NOTE | 2019-03-02 00:30 | NUR ---
returned call returned call, updated on patient status and reason for call, orders received.Ambien 10 mg PO HS PRN. Continue care.
[2019-03-02] MEDS: ZOLPIDEM TARTRATE 5 MG TAB PO PRN ×2 (00:45→22:50)
[2019-03-02 05:00] VITALS: BP 111/78
[2019-03-02] MEDS: IPRATROPIUM BROM 0.5 MG/2.5ML INH SOL NEB SCH ×3 (06:21→17:40)
[2019-03-02] MEDS: BUDESONIDE (INHALATION) 0.5 MG/2 ML NEB NEB SCH ×2 (06:22→17:40)
[2019-03-02] MEDS: ALBUTEROL SULF 2.5 MG/0.5ML(0.5%) NEB SOLN NEB SCH ×3 (06:22→17:40)
[2019-03-02] MEDS: hydrALAZINE HCL 25 MG TAB PO SCH ×3 (06:34→22:48)
--- NOTE | 2019-03-02 07:30 | NUR ---
OPENING NOTE OBSERVED PT SITTING UP IN BED. NO SOB/DISTRESS NOTED. PT C/O 04/26 GENERALIZED BACK AND NECK DISCOMFORT. WILL MEDICATE ACCORDING TO MD ORDER WITH PRN NORCO. PT UPDATED ON POC AND PT VERBALIZED UNDERSTANDING. ENCOURAGED PT TO CONTACT STAFF FOR PRN ASSISTANCE. CALL LIGHT WITHIN REACH, FALL PRECAUTIONS IN PLACE. WILL CONTINUE TO MONITOR Q1H AND PRN. CONTINUE PT CARE.
[2019-03-02] MEDS: HYDROcodone-ACET 5/325MG TAB PO PRN ×2 (07:43→13:59)
[2019-03-02 09:00] VITALS: BP 104/57
[2019-03-02] MEDS: FAMOTIDINE 20 MG TAB PO SCH ×2 (09:30→22:48)
[2019-03-02] MEDS: PREGABALIN 25 MG CAP PO SCH ×2 (09:30→22:48)
[2019-03-02] MEDS: busPIRone HCL 10 MG TAB PO SCH ×2 (09:30→22:48)
[2019-03-02] MEDS: FUROSEMIDE 20 MG TAB PO SCH (09:30)
[2019-03-02] MEDS: LISINOPRIL 20 MG TAB PO SCH ×2 (09:31→22:49)
[2019-03-02] MEDS: MORPHINE SULF INJ 2 MG/ML SYRINGE 1ML IV PRN ×2 (12:57→17:34)
[2019-03-02 13:00] VITALS: BP 108/60
--- NOTE | 2019-03-02 15:28 | NUR ---
assessment Patient is a 63 year old female who is alert and oriented. Patients cognitive abilities are intact. Prior to admission patient lived home with family and functioned independently. Patient informed me she is able to care for her own ADLs. Per patient she will return home to her prior living arrangements post discharge and family will transport her home. Patient informed me she is legally blind, but can still function independently. Patient informed me she is on service with [facility]. Patient informed me her PCP is Dr Jeffers. Patient will benefit from a resumption order for home health on discharge. I informed patient she has a right to speak to a social media senior associate regarding all care. I informed patient she has a right to participate in any and all discharge planning. Patient is aware of visiting hours on the hospital floor. I informed patient she has a right to privacy. Patient has a POA and advanced directive. Patient verbalized understanding and agreed to discharge plan. Per ss consult [facility] vitals, safety, and med management. Patient signed for [facility] to resume. MD order has been sent to [facility]. Sarmad Marie at [facility] will resume within 24 to 48 hours of discharge. Patient has been notified. Addendum: 03/02/19 at 1535 by Beth GRIGSBY Amended: Links added.
[2019-03-02 17:00] VITALS: BP 112/64
--- NOTE | 2019-03-02 18:19 | NUR ---
ROUNDS PT RE-ASSESSED FOLLOWING PRN MORPHINE ADMINISTRATION. PT STATING HER BACK/NECK DISCOMFORT IS BETTER, CURRENTLY 03/27. PT OFFERED ALTERNATIVE METHOD OF PAIN MANAGEMENT, INCLUDING HEAT PACKS, BUT PT REFUSED. PT ENCOURAGED TO CONTACT STAFF FOR PRN ASSISTANCE. CALL LIGHT WITHIN REACH. FALL PRECAUTIONS IN PLACE.
--- NOTE | 2019-03-02 19:20 | NUR ---
Opening Shift Note Assumed care of patient, awake and alert. No S/S of distress/SOB or pain. Instructed on POC and to call for assist as needed. Pt is currently sitting in a chair at the bedside. Pt has a right upper arm midline that flushes without resistance and is on room air. Call light is within reach. Will continue to monitor.
[2019-03-02 22:00] VITALS: BP 128/80
[2019-03-03 05:00] VITALS: BP 96/62
[2019-03-03] MEDS: hydrALAZINE HCL 25 MG TAB PO SCH ×2 (06:00→13:59)
[2019-03-03] MEDS: ACCU-CHEK COMFORT CURVE STRIP VI SCH ×2 (06:20→11:48)
[2019-03-03] MEDS: InsuLIN REG 1unit/0.01ml Soln (100units/ml) SC SCH ×2 (06:20→11:30)
[2019-03-03] MEDS: ALBUTEROL SULF 2.5 MG/0.5ML(0.5%) NEB SOLN NEB SCH ×2 (06:32→12:45)
[2019-03-03] MEDS: IPRATROPIUM BROM 0.5 MG/2.5ML INH SOL NEB SCH ×2 (06:32→12:45)
[2019-03-03] MEDS: BUDESONIDE (INHALATION) 0.5 MG/2 ML NEB NEB SCH (06:33)
[2019-03-03] MEDS ORDERED: glipiZIDE 5 MG TAB PO ONE (07:00)
--- NOTE | 2019-03-03 07:30 | NUR ---
Morning note Patient resting in bed with even and unlabored respirations, no distress noted. Patient's eyes closed. Fall precautions in place with bed in lowest locked position with x2 side rails up and call light within reach. Will continue to monitor q1hr & PRN.
[2019-03-03 09:00] VITALS: BP 113/72
[2019-03-03] MEDS: PREGABALIN 25 MG CAP PO SCH (10:34)
[2019-03-03] MEDS: busPIRone HCL 10 MG TAB PO SCH (10:34)
[2019-03-03] MEDS: FAMOTIDINE 20 MG TAB PO SCH (10:34)
[2019-03-03] MEDS: FUROSEMIDE 20 MG TAB PO SCH (10:34)
[2019-03-03] MEDS: LISINOPRIL 20 MG TAB PO SCH (10:35)
--- NOTE | 2019-03-03 11:10 | NUR ---
Contacting MD Bib Jeffers Called Dr. Jeffers to update on patient's status and notify MD that patient is requesting to be discharged. No answer. Voicemail left.
--- NOTE | 2019-03-03 11:41 | NUR ---
Nutrition Assessment Notes please see attached link for complete assessment Est. Needs based on BW (66kg kg): 9714-2759 kcal (23-25 kcal/kgBW), 66-72 gms pro (1.0-1.1 gms/kgBW r/t elev RFT). Will continue to monitor pertinent labs and reassess nutrient need prn Addendum: 03/03/19 at [address] Amended: Links added.
--- NOTE | 2019-03-03 12:28 | NUR ---
Updated MD Bib Jeffers Orders received and read back to verify.
[2019-03-03 13:00] VITALS: BP 115/69
[2019-03-03 14:00] VITALS: BP 113/72
--- NOTE | 2019-03-03 14:26 | NUR ---
Discharge Discharge education and paperwork given to the patient per MD's order. Patient verbalized understanding. IV removed with clean technique, catheter intact, dressing applied. Patient tolerated well. Telemonitor removed and returned to telemonitor tech. Patient collected all personal belongings. Patient taken to private vehicle by wheelchair with family member at side with all personal belongings. No distress noted at time of departure.
== END 2019-03-03 14:26 | disposition home or self-care (01) | DRG 292 ==
LOC: EDBD 22:59 → ER 22:59 → MERGE 02-28 09:03 → TELE 02-28 09:03 → TELE-CENTR 02-28 13:23
PROVIDERS: ADMIT Nurse Practitioner Acute Care; ATTEND Internal Medicine Cardiovascular Disease
DX: I13.0 Hypertensive heart and chronic kidney disease with heart failure and stage 1 through stage 4 chronic kidney disease, or unspecified chronic kidney disease (principal); J44.1 Chronic obstructive pulmonary disease with (acute) exacerbation; E11.65 Type 2 diabetes mellitus with hyperglycemia; T38.0X5A Adverse effect of glucocorticoids and synthetic analogues, initial encounter; I50.9 Heart failure, unspecified; E11.22 Type 2 diabetes mellitus with diabetic chronic kidney disease; N18.3 Chronic kidney disease, stage 3 (moderate); E11.42 Type 2 diabetes mellitus with diabetic polyneuropathy; J01.90 Acute sinusitis, unspecified; R00.1 Bradycardia, unspecified; T50.995A Adverse effect of other drugs, medicaments and biological substances, initial encounter; I25.10 Atherosclerotic heart disease of native coronary artery without angina pectoris; E89.0 Postprocedural hypothyroidism; J98.4 Other disorders of lung; Z79.4 Long term (current) use of insulin; Z87.01 Personal history of pneumonia (recurrent); Z90.49 Acquired absence of other specified parts of digestive tract; Z88.6 Allergy status to analgesic agent; Z88.8 Allergy status to other drugs, medicaments and biological substances; Y92.89 Other specified places as the place of occurrence of the external cause; Z79.899 Other long term (current) drug therapy
CPT/HCPCS: 36415; 71045; 80048; 80053; 80061; 81001; 82010; 82962; 83880; 84443; 84484; 85007; 85025; 85027; 87081; 93005; 94640; G0378; J1815

== ENCOUNTER → 2019-05-31 | Emergency (ER) | payer MEDICARE, MEDICAID ==
[~2019-05-31] VITALS: Ht 157.5 cm; Wt 69.9 kg
[~2019-05-31] MED LIST changes: +BUSP5TAB51 PO; +FURO1TAB33 PO; -FURO20TA PO; -GLIP-115 PO; +GLIP5TAB12 PO; -HYDR-4683 PO; +HYDR-4833 PO; +HYDROcodone-ACET 10/325MG TAB PO ONE; +cloNIDine HCL 0.1 MG TAB PO ONE
[2019-05-31 19:18] LABS: Basophils # (auto) 0 uL; Basophils % (auto) 0.5 % (0.0-2.0); Eosinophils # (auto) 0.1 uL; Eosinophils % (auto) 0.9 % (0.0-7.0); Hematocrit 42.8 % (36.0-46.0); Lymphocytes # (auto) 1.3 uL; Lymphocytes % (auto) 19.1 % (10.0-50.0); Mean Corpuscular Hemoglobin 28.5 pg (28.0-32.0); Mean Corpuscular Hgb Conc. 32.7 g/dL (32.0-36.0); Mean Corpuscular Volume 87.2 fL (80.0-100.0); Monocytes # (auto) 0.5 uL; Neutrophils # (auto) 4.7 uL; Neutrophils % (auto) 71.5 % (37.0-80.0); Nucleated Red Blood Cells % 0.1 %; Platelet Count (auto) 148 10^3/uL (140-450); Red Blood Cells 4.91 10^6/uL (4.0-5.20); Red Cell Distribution Width 15.7 % (11.8-14.3); White Blood Cell 6.6 10^3/uL (4.4-10.8)
[2019-05-31 19:28] LABS: Urine Bacteria FEW /hpf (None Seen); Urine Blood Negative /uL (Negative); Urine Specific Gravity 1.005 (1.001-1.035); Urine WBC 5 /hpf (0 - 5)
[2019-05-31 19:35] LABS: Albumin 4.4 g/dL (3.4-5.0); Anion Gap 8 (5-15); BUN/Creatinine Ratio 19.6; Blood Urea Nitrogen 21 mg/dL (7-18); Calcium 9.6 mg/dL (8.5-10.1); Carbon Dioxide 27 mmol/L (21-32); Chloride 105 mmol/L (98-107); GFR African American 66 mL/min; GFR Non-African American 55 mL/min; Glucose 175 mg/dL (74-106); Potassium 3.9 mmol/L (3.5-5.1); Sodium 140 mmol/L (136-145)
[2019-05-31 19:40] LABS: Alanine Aminotransferase 23 U/L (13-56); Alkaline Phosphatase 87 U/L (45-117); Aspartate Aminotransferase 14 U/L (15-37); Bilirubin, Total 0.5 mg/dL (0.2-1.0); Total Protein 7.2 g/dL (6.4-8.2)
[2019-06-01 02:09] LABS: Amylase 38 U/L (25-115); Lipase 72 U/L (73-393)
[2019-06-01 05:43] VITALS: BP 150/72
== END | disposition home or self-care (01) ==
LOC: ER 17:49
DX: K21.9 Gastro-esophageal reflux disease without esophagitis (principal); K44.9 Diaphragmatic hernia without obstruction or gangrene; J44.9 Chronic obstructive pulmonary disease, unspecified; E78.5 Hyperlipidemia, unspecified; I25.2 Old myocardial infarction; E07.9 Disorder of thyroid, unspecified; E11.22 Type 2 diabetes mellitus with diabetic chronic kidney disease; I12.9 Hypertensive chronic kidney disease with stage 1 through stage 4 chronic kidney disease, or unspecified chronic kidney disease; N18.9 Chronic kidney disease, unspecified; F17.210 Nicotine dependence, cigarettes, uncomplicated; F12.90 Cannabis use, unspecified, uncomplicated; Z88.8 Allergy status to other drugs, medicaments and biological substances; Z88.0 Allergy status to penicillin; Z90.710 Acquired absence of both cervix and uterus; Z98.61 Coronary angioplasty status; Z90.49 Acquired absence of other specified parts of digestive tract; Z91.040 Latex allergy status; Z79.4 Long term (current) use of insulin; Z79.899 Other long term (current) drug therapy
CPT/HCPCS: 36415; 74176; 80053; 81001; 82150; 83605; 83690; 84484; 85025; 93005

== ENCOUNTER 2019-08-04 14:48 | Inpatient (IN) | payer MEDICARE, MEDICAID ==
[~2019-08-04] VITALS: Ht 157.5 cm; Wt 71.4 kg
[~2019-08-04 14:48] MED LIST changes: -HYDROcodone-ACET 10/325MG TAB PO ONE; -cloNIDine HCL 0.1 MG TAB PO ONE
[2019-08-04 15:39] LABS: Basophils # (auto) 0 uL; Basophils % (auto) 0.4 % (0.0-2.0); Eosinophils # (auto) 0.3 uL; Eosinophils % (auto) 4.4 % (0.0-7.0); Hematocrit 42.5 % (36.0-46.0); Hemoglobin 13.7 g/dL (12.2-16.2); Lymphocytes # (auto) 2.5 uL; Lymphocytes % (auto) 43.8 % (10.0-50.0); Mean Corpuscular Hemoglobin 27.5 pg (28.0-32.0); Mean Corpuscular Hgb Conc. 32.3 g/dL (32.0-36.0); Mean Corpuscular Volume 85.1 fL (80.0-100.0); Monocytes # (auto) 0.5 uL; Monocytes % (auto) 8.2 % (0.0-12.0); Neutrophils # (auto) 2.5 uL; Neutrophils % (auto) 43.2 % (37.0-80.0); Nucleated Red Blood Cells % 0.1 %; Platelet Count (auto) 148 10^3/uL (140-450); Red Blood Cells 4.99 10^6/uL (4.0-5.20); Red Cell Distribution Width 13.4 % (11.8-14.3); White Blood Cell 5.7 10^3/uL (4.4-10.8)
[2019-08-04 15:55] LABS: Albumin 4.1 g/dL (3.4-5.0); Anion Gap 5 (5-15); Blood Urea Nitrogen 9 mg/dL (7-18); Calcium 9.1 mg/dL (8.5-10.1); Carbon Dioxide 32 mmol/L (21-32); Chloride 105 mmol/L (98-107); Glucose 150 mg/dL (74-106); Potassium 4.3 mmol/L (3.5-5.1); Sodium 142 mmol/L (136-145)
[2019-08-04 15:57] LABS: Alanine Aminotransferase 15 U/L (13-56); Aspartate Aminotransferase 13 U/L (15-37); BUN/Creatinine Ratio 7.4; GFR African American 57 mL/min; GFR Non-African American 47 mL/min
[2019-08-04 16:02] LABS: Alkaline Phosphatase 89 U/L (45-117); Bilirubin, Total 0.4 mg/dL (0.2-1.0); Total Protein 6.9 g/dL (6.4-8.2)
[2019-08-04] MEDS ORDERED: IPRATROPIUM BROM 0.5 MG/2.5ML INH SOL ONE ×2 (18:25→19:16)
[2019-08-04] MEDS ORDERED: LEVALBUTEROL HCL 1.25 MG/3 ML NEB ONE ×2 (18:25→19:16)
[2019-08-04] MEDS ORDERED: MORPHINE SULF INJ 2 MG/ML SYRINGE 1ML IV ONE ×2 (18:45→20:00)
[2019-08-04] MEDS ORDERED: ONDANSETRON HCL 4 MG/2 ML VIAL IV ONE (18:45)
[2019-08-04] MEDS ORDERED: NITROGLYCERIN 0.4 MG SL TAB SL PRN (22:45)
[2019-08-04] MEDS ORDERED: ZOLPIDEM TARTRATE 5 MG TAB PO PRN (22:45)
[2019-08-04] MEDS ORDERED: cloNIDine HCL 0.1 MG TAB PO PRN (22:45)
[2019-08-04] MEDS ORDERED: MORPHINE SULF INJ 2 MG/ML SYRINGE 1ML IV PRN (22:45)
[2019-08-04 23:26] VITALS: BP 156/75
[2019-08-04] MEDS: HYDROcodone-ACET 10/325MG TAB PO PRN (23:40)
[2019-08-05] VITALS (7 sets, daily range): BP systolic 121–158; BP diastolic 62–85
--- NOTE | 2019-08-05 00:30 | NUR ---
Telemetry admit from ER GERMAINE DAY admitted to Telemetry unit after SBAR received. Patient oriented to Laura nelson RN, unit, room, bed, and unit policies regarding patient care and visiting hours. Patient now on continuous telemetry monitoring, tele box #67 and telemetry reading on arrival to unit is SIN[place]DRITA . Patient placed on bedside oxygen, weighed by bedscale and encouraged to call if they need something. All questions and concerns addressed, patient verbalized understanding.
[2019-08-05] MEDS ORDERED: HYDROcodone-ACET 5/325MG TAB PO SCH (02:00)
[2019-08-05 04:57] LABS: Urine Bacteria FEW /hpf (None Seen); Urine Blood Negative /uL (Negative); Urine Specific Gravity 1.016 (1.001-1.035); Urine WBC 50 /hpf (0 - 5)
[2019-08-05] MEDS ORDERED: GABAPENTIN 300 MG CAP PO SCH (06:00)
[2019-08-05] MEDS: LEVOTHYROXINE SODIUM 88 MCG TAB PO SCH (06:21)
[2019-08-05] MEDS: HYDROcodone-ACET 10/325MG TAB PO PRN ×2 (06:23→12:44)
--- NOTE | 2019-08-05 06:46 | NUR ---
CLOSING PATIENT IS AWAKE, RECEIVING BREATHING TREATMENT SCHEDULED. RT AT BEDSIDE. NO S/S OF DISTRESS NOTED. CALL LIGHT WITHIN REACH. WILL ENDORSE CARE TO AM SHIFT RN.
[2019-08-05] MEDS ORDERED: metFORMIN HYDROCHLORIDE 500 MG TAB PO SCH (07:00)
[2019-08-05] MEDS: glipiZIDE 5 MG TAB PO SCH ×2 (07:30→17:56)
[2019-08-05] MEDS: metFORMIN HYDROCHLORIDE 500 MG TAB PO SCH ×2 (07:56→17:28)
[2019-08-05] MEDS: IPRATROPIUM BROM 0.5 MG/2.5ML INH SOL NEB SCH ×3 (08:35→22:40)
--- NOTE | 2019-08-05 09:19 | NUR ---
Opening Shift Note Assumed care of patient, awake and alert. No S/S of distress/SOB or pain. Insructed on POC and to callfor assist PRN, will continue to monitor for changes Q1hr and PRN.
[2019-08-05] MEDS: busPIRone HCL 10 MG TAB PO SCH ×2 (09:57→22:42)
[2019-08-05] MEDS: POTASSIUM CHL 10 Meq TABLET PO SCH (09:58)
[2019-08-05] MEDS: RIVAROXABAN 10 MG TAB PO SCH (09:58)
[2019-08-05] MEDS: PREGABALIN 25 MG CAP PO SCH ×2 (09:58→22:43)
[2019-08-05] MEDS: FUROSEMIDE 20 MG TAB PO SCH (09:58)
[2019-08-05] MEDS: LISINOPRIL 20 MG TAB GT SCH (09:59)
[2019-08-05] MEDS: PROPRANOLOL HCL 20 MG TAB PO SCH ×2 (09:59→22:00)
[2019-08-05] MEDS: ATORVASTATIN 20 MG TAB PO SCH (10:00)
[2019-08-05] MEDS: ISOSORBIDE MONONITRATE ER 60 MG TAB PO SCH (10:00)
--- NOTE | 2019-08-05 14:59 | NUR ---
pt son and willowtor visited pt updated on plan of care
--- NOTE | 2019-08-05 19:30 | NUR ---
Opening Shift Note Report received from day shift RN. Assumed care of patient. Patient awake and alert x4. No S/S of distress/SOB noted. Patient complains of chronic pain 9/10 on a numerical scale. Call light left within reach. Instructed on POC and to call for assist PRN, will continue to monitor for changes Q1hr and PRN.
[2019-08-05] MEDS: INSULIN LANTUS (GLARGINE) 1 /0.01ml (100units/ml) SC SCH (22:43)
[2019-08-05] MEDS: ZOLPIDEM TARTRATE 5 MG TAB PO PRN (22:43)
[2019-08-05] MEDS: MORPHINE SULF 15mg ER tab PO PRN (22:44)
[2019-08-06] MEDS: HYDROcodone-ACET 10/325MG TAB PO PRN ×3 (04:52→18:25)
[2019-08-06 05:00] VITALS: BP 146/85
[2019-08-06] MEDS: IPRATROPIUM BROM 0.5 MG/2.5ML INH SOL NEB SCH ×3 (06:15→22:59)
[2019-08-06] MEDS: glipiZIDE 5 MG TAB PO SCH ×2 (06:50→17:15)
[2019-08-06] MEDS: LEVOTHYROXINE SODIUM 88 MCG TAB PO SCH (06:50)
--- NOTE | 2019-08-06 07:32 | NUR ---
Opening Shift Note Assumed care of patient, awake and alert. No S/S of distress/SOB or pain. Instructed on POC and to call for assist PRN, will continue to monitor for changes Q1hr and PRN.
[2019-08-06 08:16] VITALS: BP 138/82
[2019-08-06] MEDS: metFORMIN HYDROCHLORIDE 500 MG TAB PO SCH ×2 (08:31→17:15)
[2019-08-06] MEDS: RIVAROXABAN 10 MG TAB PO SCH (09:51)
[2019-08-06] MEDS: POTASSIUM CHL 10 Meq TABLET PO SCH (09:51)
[2019-08-06] MEDS: ATORVASTATIN 20 MG TAB PO SCH (09:52)
[2019-08-06] MEDS: PREGABALIN 25 MG CAP PO SCH ×2 (09:52→22:01)
[2019-08-06] MEDS: FUROSEMIDE 20 MG TAB PO SCH (09:52)
[2019-08-06] MEDS: ISOSORBIDE MONONITRATE ER 60 MG TAB PO SCH (09:53)
[2019-08-06] MEDS: LISINOPRIL 20 MG TAB GT SCH (09:53)
[2019-08-06] MEDS: PROPRANOLOL HCL 20 MG TAB PO SCH ×2 (09:53→22:00)
[2019-08-06] MEDS: busPIRone HCL 10 MG TAB PO SCH ×2 (09:54→22:00)
[2019-08-06] MEDS: TRIAMCINOLONE 40MG/ML 1ML VIAL IM SCH (09:54)
[2019-08-06 13:00] VITALS: BP 118/66
[2019-08-06 17:00] VITALS: BP 124/73
--- NOTE | 2019-08-06 17:16 | NUR ---
pt son at bedside pt awake alert eating a cheeseburger pt noted that above right inner eyebrow is a lump under the skin pt states "this is wear my headache is coming from"
--- NOTE | 2019-08-06 18:37 | NUR ---
paged md reese per patient gareth doesnt help with her headache awaiting call back
--- NOTE | 2019-08-06 19:20 | NUR ---
Opening Shift Note Report received from day shift RN. Assumed care of patient. Patient awake and alert x4. No S/S of distress/SOB noted. Patient complains of a headache 6/10 on a numerical scale. Will medicate patient as ordered. Call light left within reach. Instructed on POC and to call for assist PRN, will continue to monitor for changes Q1hr and PRN.
[2019-08-06] MEDS: MORPHINE SULF 15mg ER tab PO PRN (22:02)
[2019-08-06] MEDS: ZOLPIDEM TARTRATE 5 MG TAB PO PRN (22:02)
[2019-08-06] MEDS: INSULIN LANTUS (GLARGINE) 1 /0.01ml (100units/ml) SC SCH (22:02)
[2019-08-06 22:26] VITALS: BP 140/70
[2019-08-07 05:24] VITALS: BP 153/90
[2019-08-07] MEDS: IPRATROPIUM BROM 0.5 MG/2.5ML INH SOL NEB SCH ×2 (06:01→14:10)
[2019-08-07] MEDS: LEVOTHYROXINE SODIUM 88 MCG TAB PO SCH (06:29)
[2019-08-07] MEDS: glipiZIDE 5 MG TAB PO SCH ×2 (06:29→17:13)
[2019-08-07] MEDS: metFORMIN HYDROCHLORIDE 500 MG TAB PO SCH ×2 (07:24→17:14)
--- NOTE | 2019-08-07 07:34 | NUR ---
Opening Shift Note Assumed care of patient, awake and alert. No S/S of distress/SOB or pain. Instructed on POC and to call for assist PRN, will continue to monitor for changes Q1hr and PRN. Bed in low position and call light within reach
[2019-08-07 08:43] VITALS: BP 144/106
[2019-08-07] MEDS: RIVAROXABAN 10 MG TAB PO SCH (09:45)
[2019-08-07] MEDS: FUROSEMIDE 20 MG TAB PO SCH (09:46)
[2019-08-07] MEDS: LISINOPRIL 20 MG TAB GT SCH (09:46)
[2019-08-07] MEDS: busPIRone HCL 10 MG TAB PO SCH ×2 (09:46→21:33)
[2019-08-07] MEDS: PROPRANOLOL HCL 20 MG TAB PO SCH ×2 (09:47→21:33)
[2019-08-07] MEDS: POTASSIUM CHL 10 Meq TABLET PO SCH (09:48)
[2019-08-07] MEDS: OXYCODONE W/ ACETAMINOPHEN 5/325MG TABLET PO PRN ×2 (09:48→19:55)
[2019-08-07] MEDS: ATORVASTATIN 20 MG TAB PO SCH (09:48)
[2019-08-07] MEDS: PREGABALIN 25 MG CAP PO SCH ×2 (09:48→21:38)
[2019-08-07] MEDS: ISOSORBIDE MONONITRATE ER 60 MG TAB PO SCH (09:49)
[2019-08-07] MEDS: TRIAMCINOLONE 40MG/ML 1ML VIAL IM SCH (09:50)
--- NOTE | 2019-08-07 12:00 | NUR ---
OFFERED TO CHANGE PT IV SITE PT STATED NOT NOW ITS FINE
[2019-08-07 12:53] VITALS: BP 140/70
[2019-08-07] MEDS: HYDROcodone-ACET 10/325MG TAB PO PRN (13:57)
--- NOTE | 2019-08-07 14:48 | NUR ---
NUTRITION ASSESSMENT NOTES Please refer to link notes of nutrition screen form filed under the intervention section of the plan of care for further details. Est. Needs: 1500 kcal to 1850 kcal (20-25 kcal/kgBW), 60 gms to 75 gms pro (0.8-1.0 gms/kgBW). Will continue to monitor pertinent labs and reassess nutrient need prn Thank you. Addendum: 08/07/19 at [address] Amended: Links added.
[2019-08-07 17:00] VITALS: BP 122/66
[2019-08-07] MEDS: MORPHINE SULF 15mg ER tab PO PRN (21:38)
[2019-08-07] MEDS: ZOLPIDEM TARTRATE 5 MG TAB PO PRN (21:38)
[2019-08-07] MEDS: INSULIN LANTUS (GLARGINE) 1 /0.01ml (100units/ml) SC SCH (21:39)
[2019-08-07 23:41] VITALS: BP 181/79
[2019-08-08 01:56] VITALS: BP 181/79
[2019-08-08 05:46] VITALS: BP 146/100
[2019-08-08] MEDS: glipiZIDE 5 MG TAB PO SCH ×2 (06:34→17:00)
[2019-08-08] MEDS: LEVOTHYROXINE SODIUM 88 MCG TAB PO SCH (06:35)
[2019-08-08] MEDS: OXYCODONE W/ ACETAMINOPHEN 5/325MG TABLET PO PRN ×2 (06:35→17:39)
[2019-08-08] MEDS: IPRATROPIUM BROM 0.5 MG/2.5ML INH SOL NEB SCH ×3 (07:41→23:00)
[2019-08-08] MEDS: metFORMIN HYDROCHLORIDE 500 MG TAB PO SCH (07:55)
[2019-08-08 09:00] VITALS: BP 147/71
[2019-08-08] MEDS: POTASSIUM CHL 10 Meq TABLET PO SCH (09:13)
[2019-08-08] MEDS: PROPRANOLOL HCL 20 MG TAB PO SCH ×2 (09:14→22:06)
[2019-08-08] MEDS: PREGABALIN 25 MG CAP PO SCH ×2 (09:14→22:02)
[2019-08-08] MEDS: busPIRone HCL 10 MG TAB PO SCH ×2 (09:14→22:02)
[2019-08-08] MEDS: ATORVASTATIN 20 MG TAB PO SCH (09:14)
[2019-08-08] MEDS: ISOSORBIDE MONONITRATE ER 60 MG TAB PO SCH (09:15)
[2019-08-08] MEDS: RIVAROXABAN 10 MG TAB PO SCH (09:15)
[2019-08-08] MEDS: FUROSEMIDE 20 MG TAB PO SCH (09:15)
[2019-08-08] MEDS: LISINOPRIL 20 MG TAB GT SCH (09:16)
[2019-08-08] MEDS: TRIAMCINOLONE 40MG/ML 1ML VIAL IM SCH (09:17)
--- NOTE | 2019-08-08 10:00 | NUR ---
PT REFUSED IV SITE CHANGE
[2019-08-08] MEDS: HYDROcodone-ACET 10/325MG TAB PO PRN (12:04)
[2019-08-08 13:00] VITALS: BP 118/75
--- NOTE | 2019-08-08 14:00 | NUR ---
PT REFUSED IV SITE CHANGE
--- NOTE | 2019-08-08 15:26 | NUR ---
JOSEPH NICOLE TO MAKE AWARE OF PT TAKING METFORMIN AWAITING CALL BACK SPOKE TO OFFICE STAFF STATED THEY WOULD TEXT HIM
--- NOTE | 2019-08-08 15:26 | NUR ---
CALLED RADIOLOGY TO INFORM THEM PT TOOK METFORMIN THIS MORNING AT 0800. PER RADIOLOGY THAT IS FINE METFORMIN CANT BE TAKEN 48 HOURS AFTER CONTRAST
[2019-08-08 15:42] LABS: Albumin 4.4 g/dL (3.4-5.0); BUN/Creatinine Ratio 18.3
[2019-08-08 15:44] LABS: Bilirubin, Total 0.4 mg/dL (0.2-1.0); Total Protein 7.3 g/dL (6.4-8.2)
[2019-08-08 17:00] VITALS: BP 151/72
--- NOTE | 2019-08-08 18:46 | NUR ---
PT BACK FROM CT OF THE HEAD, EATING DINNER OFFERED TO CHANGE IV SITE PT STATES NOT NOW
[2019-08-08 22:00] VITALS: BP 195/99
[2019-08-08] MEDS: ZOLPIDEM TARTRATE 5 MG TAB PO PRN (22:02)
[2019-08-08] MEDS: INSULIN LANTUS (GLARGINE) 1 /0.01ml (100units/ml) SC SCH (22:14)
[2019-08-08] MEDS ORDERED: LACTULOSE 20Gm/30ML SOLN PO ONE (23:15)
--- NOTE | 2019-08-08 23:15 | NUR ---
Communicated with Dr Jeffers of patient requesting medication for constipation and something for Gerd. Dr Jeffers provided new order of Lactulose 60cc po now may repeat in 4 hours.
[2019-08-09] VITALS (8 sets, daily range): BP systolic 99–161; BP diastolic 60–83
[2019-08-09] MEDS ORDERED: LACTULOSE 20Gm/30ML SOLN PO ONE (05:30)
[2019-08-09] MEDS: OXYCODONE W/ ACETAMINOPHEN 5/325MG TABLET PO PRN (05:55)
[2019-08-09] MEDS: IPRATROPIUM BROM 0.5 MG/2.5ML INH SOL NEB SCH ×3 (06:22→22:16)
[2019-08-09] MEDS: LEVOTHYROXINE SODIUM 88 MCG TAB PO SCH (06:40)
[2019-08-09] MEDS: glipiZIDE 5 MG TAB PO SCH ×2 (06:59→17:04)
[2019-08-09] MEDS: ATORVASTATIN 20 MG TAB PO SCH (10:06)
[2019-08-09] MEDS: POTASSIUM CHL 10 Meq TABLET PO SCH (10:19)
[2019-08-09] MEDS: RIVAROXABAN 10 MG TAB PO SCH (10:19)
[2019-08-09] MEDS: ISOSORBIDE MONONITRATE ER 60 MG TAB PO SCH (10:19)
[2019-08-09] MEDS: PREGABALIN 25 MG CAP PO SCH ×2 (10:19→21:47)
[2019-08-09] MEDS: FUROSEMIDE 20 MG TAB PO SCH (10:20)
[2019-08-09] MEDS: PROPRANOLOL HCL 20 MG TAB PO SCH ×2 (10:20→21:49)
[2019-08-09] MEDS: LISINOPRIL 20 MG TAB GT SCH (10:21)
[2019-08-09] MEDS: busPIRone HCL 10 MG TAB PO SCH ×2 (10:21→21:47)
[2019-08-09] MEDS: HYDROcodone-ACET 10/325MG TAB PO PRN (13:54)
--- NOTE | 2019-08-09 14:55 | NUR ---
PATIENT STATED NORCO DOES NOT WORK ON HER AND SHE PREFERS PERCOCET. WILL PASS ON TO NOC RN
--- NOTE | 2019-08-09 15:51 | NUR ---
assessment Patient is a 64 year old female who is alert and oriented. Patients cognitive abilities are intact. Prior to admission patient lived home with her son Yuriy and functioned with assistance. Per patient she will return home to her prior living arrangements post discharge and family will transport her home. Patient informed me she has a fww, and a white cane for home use. Patient informed me she is legally blind. Patient informed me her PCP is Dr Jeffers. Patient informed me she is on service with [facility]. Patient will need a resumption order on discharge. Patient informed me her son Yuriy assist her with cooking, cleaning, and driving. Patient feels safe returning home on discharge. I informed patient she has a right to speak to a social director regarding all care. I informed patient she has a right to participate in any and all discharge planning. Patient does not have a POA and advanced directive. I have offered patient information on POA and advanced directives. I informed the patient the advantages and benefits of having an Advanced Directive. Patient verbalized understanding and agreed to discharge plan. Addendum: 08/09/19 at 1555 by Beth GRIGSBY Amended: Links added.
[2019-08-09] MEDS: metFORMIN HYDROCHLORIDE 500 MG TAB PO SCH (18:00)
[2019-08-09] MEDS ORDERED: metFORMIN HYDROCHLORIDE 500 MG TAB PO SCH (18:00)
--- NOTE | 2019-08-09 18:00 | NUR ---
PER PATIENT SHE RECEIVED CONTRAST WITH HER CT YESTERDAY 08/08/19, HOWEVER THE ORDER SHOWED CT WITHOUT CONTRAST. PER PATIENT, MED METFORMIN HELD
--- NOTE | 2019-08-09 19:45 | NUR ---
Opening Shift Note Assumed care of patient, awake and alert. No S/S of distress/SOB or pain. Instructed on POC and to call for assist PRN, patient verbalized understanding, call light within reach, will continue to monitor for changes Q1hr and PRN.
[2019-08-09] MEDS: ZOLPIDEM TARTRATE 5 MG TAB PO PRN (21:47)
[2019-08-09] MEDS: INSULIN LANTUS (GLARGINE) 1 /0.01ml (100units/ml) SC SCH (22:01)
[2019-08-10 05:00] VITALS: BP 124/67
[2019-08-10] MEDS: IPRATROPIUM BROM 0.5 MG/2.5ML INH SOL NEB SCH ×2 (06:12→14:02)
[2019-08-10] MEDS: glipiZIDE 5 MG TAB PO SCH (06:20)
[2019-08-10] MEDS: LEVOTHYROXINE SODIUM 88 MCG TAB PO SCH (06:21)
[2019-08-10] MEDS: metFORMIN HYDROCHLORIDE 500 MG TAB PO SCH (08:00)
[2019-08-10] MEDS: OXYCODONE W/ ACETAMINOPHEN 5/325MG TABLET PO PRN ×2 (08:35→16:37)
--- NOTE | 2019-08-10 08:46 | NUR ---
BS 114, METFORMIN HELD, PT HAS HAD CONTRAST 08/08. PT REPORTS 8/10 PAIN IN BACK AND FEET, PRN PAIN MED GIVEN.
[2019-08-10 09:00] VITALS: BP 123/64
--- NOTE | 2019-08-10 09:56 | NUR ---
PT RAMY CALLED AND WISHES TO SPEAK WITH MANAGEMENT. NOTIFIED CHARGE JEIMY, GAVE JEIMY [place] NUMBER.
[2019-08-10] MEDS: ISOSORBIDE MONONITRATE ER 60 MG TAB PO SCH (10:00)
[2019-08-10] MEDS: PROPRANOLOL HCL 20 MG TAB PO SCH (10:00)
[2019-08-10] MEDS: ATORVASTATIN 20 MG TAB PO SCH (10:28)
[2019-08-10] MEDS: RIVAROXABAN 10 MG TAB PO SCH (10:28)
[2019-08-10] MEDS: PREGABALIN 25 MG CAP PO SCH (10:28)
[2019-08-10] MEDS: LISINOPRIL 20 MG TAB GT SCH (10:29)
[2019-08-10] MEDS: busPIRone HCL 10 MG TAB PO SCH (10:29)
[2019-08-10] MEDS: FUROSEMIDE 20 MG TAB PO SCH (10:30)
[2019-08-10] MEDS: POTASSIUM CHL 10 Meq TABLET PO SCH (10:31)
--- NOTE | 2019-08-10 10:33 | NUR ---
RAMY: WAS INFORMED BY TORIN SAMPSON THAT PATIENTS RAMY CALHOUN WAS REQUESTING TO SPEAK WITH ME REGARDING AN INCIDENT THAT HAD OCCURRED PREVIOUSLY. RAMY WAS CALLED, NO ANSWER LEFT A MESSAGE.
--- NOTE | 2019-08-10 10:38 | NUR ---
Inderol held, pt hr 53. Imdur held, already gave 2 meds that affect BP.
--- NOTE | 2019-08-10 11:11 | NUR ---
Nutrition Follow-up Notes Wt.: 71.4 kg Pt was sleeping with no family by bedside. per pt records pt with malignant HTN and s/p head CT. pt with no distress noted currently on CCHO 60 gm cardiac diet with adequate PO of 100% x 4 per RN doc Est. Needs: 1500 kcal to 1850 kcal (20-25 kcal/kgBW), 60 gms to 75 gms pro (0.8-1.0 gms/kgBW). Will continue to monitor pertinent labs and reassess nutrient need prn Labs: BUN 21 H, CREAT 1.15 H, GLU 163 H Skin: [place] scale 18, mod risk, skin intact per production control specialist. GI: Pt had 1 BM 08/08 per production control specialist. PES: Obesity r/t excessive PO intake aeb 149% IBW, BMI 30.1 kg/m2 and increased body adiposity Altered nutrition related lab values r/t current/chronic medical condition aeb hyperglycemia, elev. Cr level. Will continue to monitor PO intake, skin status, pertinent labs and weight trend. F/u in 3-5 days. Rec.: 1.) Continue close supervision with meals. 3.) Refer to CDE/RD for further nutrition educ. and weight monitoring upon discharge. 3.) Continue current plan of care.
[2019-08-10] MEDS ORDERED: GADOTERIDOL 279.3mg/mL 20ml Vial IV ONE (11:52)
--- NOTE | 2019-08-10 11:57 | NUR ---
DINORA FROM [facility] CALLED, HE REPORTS HE IS ON THE WAY TO MOTOR ADJUSTER PATIENT.
--- NOTE | 2019-08-10 15:13 | NUR ---
XCALLED [facility] TO CONFIRM HOME [facility] IS IN PLACE FOR DC, NO ANSWER, LEFT MESSAGE ASKING FOR CONFIRMATION.
[2019-08-10 15:20] VITALS: BP 123/64
--- NOTE | 2019-08-10 16:35 | NUR ---
SPOKE WITH JUVENCIO AND TREMAINE ABOUT [facility], THEY REPORT PT CLEARED FOR DC.
[2019-08-10 17:00] VITALS: BP 150/70
--- NOTE | 2019-08-10 17:11 | NUR ---
Discharge instructions given as ordered. Encourage to follow up with Dr. Jeffesr as instructed. All questions and concerns addressed. Patient verbalized understanding. Medication reconciliation form completed and copy given to patient. IV removed with catheter intact, pressure dressing applied. Telemetry unit returned to ICU. Patient taken to vehicle via wheelchair with all personal belongings, accompanied by staff and family members. No distress noted at time of departure.
--- NOTE | 2019-08-11 08:24 | NUR ---
D/C Planning Per consult for home health physical therapy. Spoke to Pt regarding Home health. Pt stated she has [employer] and would like to resume service with agency. Contacted [facility] Ph:) Fax:) faxed medical records. Per Paola from [facility] they will resume service for Pt within 48hrs upon d/c day. Informed Pt at bedside. Pt verbalize understanding. Addendum: 08/11/19 at 0827 by REGIS DEWITT Amended: Links added.
== END 2019-08-10 16:00 | disposition home health service (06) | DRG 64 ==
LOC: ER 14:54 → TELE 14:55 → TELE-WESTW 23:38
PROVIDERS: ADMIT Internal Medicine Cardiovascular Disease; ATTEND Internal Medicine Cardiovascular Disease
DX: I63.9 Cerebral infarction, unspecified (principal); I50.21 Acute systolic (congestive) heart failure; J44.1 Chronic obstructive pulmonary disease with (acute) exacerbation; G89.29 Other chronic pain; R07.89 Other chest pain; F17.210 Nicotine dependence, cigarettes, uncomplicated; E11.21 Type 2 diabetes mellitus with diabetic nephropathy; E11.40 Type 2 diabetes mellitus with diabetic neuropathy, unspecified; I11.0 Hypertensive heart disease with heart failure; I25.10 Atherosclerotic heart disease of native coronary artery without angina pectoris; Z88.0 Allergy status to penicillin; Z88.6 Allergy status to analgesic agent; Z91.040 Latex allergy status; Z90.49 Acquired absence of other specified parts of digestive tract; Z79.01 Long term (current) use of anticoagulants; Z76.5 Malingerer [conscious simulation]; Z79.899 Other long term (current) drug therapy; Z90.710 Acquired absence of both cervix and uterus; Z91.19 Patient's noncompliance with other medical treatment and regimen; Z95.5 Presence of coronary angioplasty implant and graft; Z79.4 Long term (current) use of insulin
CPT/HCPCS: 36415; 70470; 70553; 71045; 80053; 81001; 82962; 83880; 84484; 85025; 87081; 93005; 94640; 96374; 96375; 96376; G0378; J1815; J2405

== ENCOUNTER → 2019-09-20 | Outpatient (CLI) | payer MEDICARE, MEDICAID ==
[~2019-09-20] MED LIST changes: +ALPR0.25 PO; -BUSP5TAB51 PO; -BUSP7.5T4 PO; -DEXL60CA3 PO; +LOSA-39 PO; +MELO1TAB73 PO; +MORP15TA PO
[2019-09-20 11:45] VITALS: BP 184/86
--- NOTE | 2019-09-20 11:45 | NUR ---
PT. TO [facility]F CLINIC WITH SON FOR EVAL. AND [place] [facility] WITH PACEMAKER IMPLANTATION.PT. MISSED HER WEDNESDAY APPT. WITH DR. NICOLE AND THIS RN WAS CALLED BY HOME HEALTH RN REGARDING ELEVATED B/P AND UNCONTROLLED DM. PT AOX4, PWD RBS IS 119, WITH PT. STATING SHE TOOK ALL OF HER MEDS THIS AM. NOTED ELEVATION IN B/P 174/89 RT.ARM AND 200/[address] NICOLE ADVISED OF PT. STATUS.
--- NOTE | 2019-09-20 12:45 | NUR ---
Dr. Zeyad Corado at bedside Dr. Corado at bedside for exam. Additional orders received and carried out. STERI STRIPS TO LEFT ANT. WALL OF CHEST ALL INTACT, WITH NO REDNESS OR SWELLING NOTED. ORDERS FOR TELFA DRESSING AND TEGADERM TO SITE RECEIVED AND CARRIED OUT. RX FOR PROCARDIA 60MGXL CALLED TO [facility] PER MD ORDER.
[2019-09-20 13:35] VITALS: BP 188/88
--- NOTE | 2019-09-20 13:35 | NUR ---
Discharge Instructions See e-MAR for any mediations given with this visit. Patient education given on disease process. Patient verbalized understanding. Previous labs reviewed. Patient discharged in stable condition with after care instructions and follow up appointment. PT. TO FOLLOW UP WITH DR. NICOLE NEXT WED. AT 2:20 DC'D STABLE WITH SON.
== END | disposition home or self-care (01) ==
LOC: CHF HDHVI 12:09
PROVIDERS: ATTEND Internal Medicine Cardiovascular Disease
DX: E11.9 Type 2 diabetes mellitus without complications (principal); K90.9 Intestinal malabsorption, unspecified; E87.6 Hypokalemia; I25.10 Atherosclerotic heart disease of native coronary artery without angina pectoris; I10 Essential (primary) hypertension
CPT/HCPCS: 36415; 82306; 82962; 83036; 84132; G0463

== ENCOUNTER → 2019-11-28 | Outpatient (CLI) | payer MEDICARE, MEDICAID ==
[~2019-11-28] MED LIST changes: +DEXL60CA3 PO; +NIFE1TAB30 PO; +PERCOT PO; +TRAZ150T79 PO
== END | disposition home or self-care (01) ==
LOC: Rad HDHVI 13:55
PROVIDERS: ATTEND Internal Medicine Cardiovascular Disease
DX: I37.1 Nonrheumatic pulmonary valve insufficiency (principal); I49.5 Sick sinus syndrome; J44.9 Chronic obstructive pulmonary disease, unspecified; I25.10 Atherosclerotic heart disease of native coronary artery without angina pectoris
CPT/HCPCS: 93306

== ENCOUNTER 2020-02-10 14:52 | Inpatient (IN) | payer MEDICARE, MEDICAID ==
[~2020-02-10] VITALS: Ht 157.5 cm; Wt 66.3 kg
[~2020-02-10 14:52] MED LIST changes: -INSU1.2I SC; -LIS20T GT; +LIS20T PO
[2020-02-10] MEDS ORDERED: SODIUM CHLORIDE 0.9% 1,000 ML IV ONE (15:49)
[2020-02-10 16:20] LABS: Albumin 3.5 g/dL (3.4-5.0); BUN/Creatinine Ratio 13.3; Calcium 9.1 mg/dL (8.5-10.1); Potassium 5.1 mmol/L (3.5-5.1)
[2020-02-10 16:22] LABS: Bilirubin, Total 0.3 mg/dL (0.2-1.0); Total Protein 6.3 g/dL (6.4-8.2)
[2020-02-10 16:27] LABS: Basophils # (auto) 0.1 10 ^3/uL (0-0.2); Eosinophils # (auto) 0.3 10 ^3/uL (0-0.8); Mean Corpuscular Hemoglobin 26.6 pg (28.0-32.0); Monocytes # (auto) 0.8 10 ^3/uL (0-1.3); Neutrophils # (auto) 4.1 10 ^3/uL (1.6-8.6); Nucleated Red Blood Cells % 0.1 %
[2020-02-10 16:29] LABS: Eosinophils % (auto) 3.7 % (0.0-7.0); Hematocrit 37.5 % (36.0-46.0); Lymphocytes # (auto) 2.7 10 ^3/uL (0.4-5.4); Lymphocytes % (auto) 34.3 % (10.0-50.0); Mean Corpuscular Hgb Conc. 31.9 g/dL (32.0-36.0); Mean Corpuscular Volume 83.4 fL (80.0-100.0); Monocytes % (auto) 9.9 % (0.0-12.0); Neutrophils % (auto) 51.1 % (37.0-80.0); Platelet Count (auto) 177 10^3/uL (140-450); Red Blood Cells 4.49 10^6/uL (4.0-5.20); Red Cell Distribution Width 13.7 % (11.8-14.3)
[2020-02-10 16:31] LABS: INR 1.18 (0.9-1.15); Partial Thromboplastin Time 23.5 sec (23.64-32.05)
[2020-02-10] MEDS ORDERED: FUROSEMIDE 40 MG/4 ML VIAL IV ONE (17:30)
[2020-02-10] MEDS ORDERED: SPIRONOLACTONE 25 MG TAB PO ONE (17:30)
[2020-02-10] MEDS ORDERED: FUROSEMIDE 20 MG/2 ML VIAL IV ONE (18:15)
[2020-02-10 19:55] LABS: Urine Bacteria NONE SEEN /hpf (None Seen); Urine Blood Negative /uL (Negative); Urine Specific Gravity 1.006 (1.001-1.035); Urine WBC 4 /hpf (0 - 5)
[2020-02-10] MEDS ORDERED: fentaNYL CITRATE 100 MCG/2 ML VL IV ONE (21:00)
[2020-02-11] MEDS ORDERED: DEXTROSE (50%) 50ML SYRG IV PRN
[2020-02-11] MEDS ORDERED: MORPHINE SULF INJ 2 MG/ML SYRINGE 1ML IV PRN
[2020-02-11] MEDS ORDERED: NITROGLYCERIN 0.4 MG SL TAB SL PRN
[2020-02-11 00:20] VITALS: BP 122/62
[2020-02-11] MEDS: LEVALBUTEROL HCL 1.25 MG/3 ML NEB NEB SCH ×4 (00:35→18:37)
[2020-02-11] MEDS: MORPHINE SULFATE 10 MG/5 ML ORAL SOLN PO SCH ×2 (00:52→21:44)
[2020-02-11] MEDS: ATORVASTATIN 20 MG TAB PO SCH ×2 (00:52→09:43)
[2020-02-11] MEDS: FUROSEMIDE INJECTION 100 MG in SODIUM CHL 0.9% 100 ML IV SCH ×3 (02:30→19:43)
[2020-02-11] MEDS ORDERED: FUROSEMIDE INJECTION 10 ML ONE (02:39)
[2020-02-11] MEDS ORDERED: OXYCODONE W/ ACETAMINOPHEN 5/325MG TABLET PO ONE (03:15)
[2020-02-11] MEDS: GABAPENTIN 400 MG CAP PO SCH ×3 (06:00→21:45)
[2020-02-11] MEDS: OXYCODONE W/ ACETAMINOPHEN 5/325MG TABLET PO SCH ×4 (06:00→22:54)
[2020-02-11] MEDS: glipiZIDE 5 MG TAB PO SCH ×2 (06:54→17:00)
[2020-02-11] MEDS: ACCU-CHEK COMFORT CURVE STRIP VI SCH ×4 (06:54→22:55)
[2020-02-11] MEDS: LEVOTHYROXINE SODIUM 88 MCG TAB PO SCH (06:54)
[2020-02-11] MEDS: InsuLIN REG 1unit/0.01ml Soln (100units/ml) SC SCH ×3 (06:59→16:51)
--- NOTE | 2020-02-11 07:53 | NUR ---
PATIENT ARRIVED TO ROOM FROM ER. PATIENT ORIENTED TO ROOM, CALL LIGHT BEDSIDE, BED IN LOCKED AND LOWEST POSITION AND 2X SIDE RAILS UP. VS 97.8, 89, 17, 100%, 118/63. WILL CONTINUE TO MONITOR Q1H AND PRN
[2020-02-11] MEDS: metFORMIN HYDROCHLORIDE 500 MG TAB PO SCH ×2 (08:52→18:00)
[2020-02-11 09:00] VITALS: BP 118/63
[2020-02-11] MEDS: PREGABALIN 25 MG CAP PO SCH ×2 (09:43→21:45)
[2020-02-11] MEDS: POTASSIUM CHL 20 Meq TABLET PO SCH ×2 (09:43→22:00)
[2020-02-11] MEDS: LISINOPRIL 20 MG TAB PO SCH (09:44)
[2020-02-11] MEDS: PANTOPRAZOLE 40 MG TAB PO SCH (09:44)
[2020-02-11] MEDS: ALPRAZolam 0.25 MG TAB PO SCH ×2 (09:44→21:45)
[2020-02-11 13:00] VITALS: BP 110/53
--- NOTE | 2020-02-11 13:02 | NUR ---
Respiratory note: PT 1200 SCHEDULED TX NOT DONE. PT WAS SLEEPING AND I WOKE HER UP BUT SHE SAID SHE WAS OK AND WOULD LIKE TO SLEEP.
--- NOTE | 2020-02-11 14:06 | NUR ---
CONFIRMED DOBUTAMINE ORDER WITH DR NICOLE PER PHARMACY REQUEST FOR CLARIFICATION. PER PHARMACY, NEW ORDER FOR DOBUTAMINE PLACED.
[2020-02-11] MEDS ORDERED: DOBUTamine 1000MCG/ML 250 ML IV SCH ×2 (14:30)
[2020-02-11] MEDS: DOBUTamine 1000MCG/ML 250 ML IV SCH (15:46)
[2020-02-11 17:00] VITALS: BP 110/53
--- NOTE | 2020-02-11 17:25 | NUR ---
SPOKE TO PATIENTS DAUGHTER LJ [phone] AND SHE PROVIDED UPDATED MEDS PATIENT IS TAKING
--- NOTE | 2020-02-11 18:44 | NUR ---
Respiratory note: AT BEDSIDE FOR MED OFELIA SCHULTZ.
[2020-02-11] MEDS: traZODone HCL 50 MG TAB PO SCH (21:46)
[2020-02-11] MEDS ORDERED: GABAPENTIN 100 MG CAP ONE (21:55)
[2020-02-11 22:00] VITALS: BP 99/53
[2020-02-11] MEDS: GABAPENTIN 300 MG CAP PO SCH (22:54)
[2020-02-12] VITALS (10 sets, daily range): BP systolic 66–96; BP diastolic 39–54
[2020-02-12] MEDS: InsuLIN REG 1unit/0.01ml Soln (100units/ml) SC SCH ×5 (00:59→22:00)
[2020-02-12] MEDS: DOBUTamine 1000MCG/ML 250 ML IV SCH (03:29)
--- NOTE | 2020-02-12 04:00 | NUR ---
Pain assessment: Patient called c/o throbbing pain in her bilateral lower ext. Unable to administer pain medication at this time because its not due yet and her BP is low. Lasix drip stopped awaiting Dr Jeffers to call back. Dobutamine drip still infusing well. Will continue with Lasix drip when BP will be stable and will call us back.Will continue to monitor.
--- NOTE | 2020-02-12 04:00 | NUR ---
Called/paged called re: low Bp 73/39 . Waiting for call back. Continue care.
[2020-02-12] MEDS: GABAPENTIN 300 MG CAP PO SCH ×3 (05:54→22:13)
[2020-02-12] MEDS: OXYCODONE W/ ACETAMINOPHEN 5/325MG TABLET PO SCH (05:55)
[2020-02-12] MEDS: FUROSEMIDE INJECTION 100 MG in SODIUM CHL 0.9% 100 ML IV SCH (06:00)
[2020-02-12] MEDS: LEVOTHYROXINE SODIUM 88 MCG TAB PO SCH (06:23)
[2020-02-12] MEDS: glipiZIDE 5 MG TAB PO SCH ×2 (06:23→17:34)
[2020-02-12] MEDS: ACCU-CHEK COMFORT CURVE STRIP VI SCH ×3 (06:24→17:36)
--- NOTE | 2020-02-12 07:00 | NUR ---
Called/paged called re:low BP 89/48 . Waiting for call back. Continue care.
[2020-02-12] MEDS: LEVALBUTEROL HCL 1.25 MG/3 ML NEB NEB SCH ×4 (07:13→18:24)
--- NOTE | 2020-02-12 07:40 | NUR ---
Opening Shift Note Assumed care of patient, awake and alert, resting in bed. No S/S of distress/SOB or pain. Updated on POC and instructed to call for assistance PRN, patient verbalized understanding. Patient current blood pressure reading at 66/41, will paged Dr Jeffers again. Patient placed on interval blood pressure readings q15min to monitor. Bed locked in lowest position, side rails up x2, call light within reach, bed alarm on for safety. Will continue to monitor for changes Q1hr and PRN.
--- NOTE | 2020-02-12 09:25 | NUR ---
SPOKE WITH DR NICOLE REGARDING PATIENTS DECREASED BLOOD PRESSURE, INSTRUCTED TO HOLD LASIX AND DOBUTAMINE DRIP AT THIS TIME. WILL INPUT NEW ORDERS AND FOLLOW THROUGH.
[2020-02-12] MEDS: metFORMIN HYDROCHLORIDE 500 MG TAB PO SCH ×2 (09:27→17:36)
[2020-02-12] MEDS: ALPRAZolam 0.25 MG TAB PO SCH ×2 (09:27→22:18)
[2020-02-12] MEDS: PANTOPRAZOLE 40 MG TAB PO SCH (09:27)
[2020-02-12] MEDS: ATORVASTATIN 20 MG TAB PO SCH (09:27)
[2020-02-12] MEDS: PREGABALIN 25 MG CAP PO SCH ×2 (09:27→22:13)
[2020-02-12] MEDS: LISINOPRIL 20 MG TAB PO SCH (09:27)
[2020-02-12] MEDS: POTASSIUM CHL 20 Meq TABLET PO SCH (09:28)
[2020-02-12] MEDS: OXYCODONE W/ ACETAMINOPHEN 5/325MG TABLET PO PRN ×2 (11:03→16:03)
[2020-02-12 16:38] LABS: BUN/Creatinine Ratio 7.6; Calcium 8.6 mg/dL (8.5-10.1); Potassium 4.8 mmol/L (3.5-5.1)
[2020-02-12] MEDS ORDERED: OXYC325T10 PO (17:58)
[2020-02-12] MEDS ORDERED: DICL1GEL35 TD (18:03)
[2020-02-12] MEDS ORDERED: GLIP10TA9 PO (18:04)
[2020-02-12] MEDS ORDERED: PREG150C62 PO (18:07)
[2020-02-12] MEDS ORDERED: INSU1INJ14 SC (18:12)
[2020-02-12] MEDS ORDERED: LOSA-39 PO (18:15)
[2020-02-12] MEDS ORDERED: CHOL500021 PO (18:16)
--- NOTE | 2020-02-12 22:00 | NUR ---
Blood sugar checked x 2. Patient have episode of confusion. Patient have some weakness in her lower ext. Unable to get out of bed even with assist. All due medication administered . Will continue to monitor.
[2020-02-12] MEDS: traZODone HCL 50 MG TAB PO SCH (22:13)
[2020-02-13 00:05] VITALS: BP 97/56
[2020-02-13] MEDS: MORPHINE SULFATE 10 MG/5 ML ORAL SOLN PO SCH ×2 (00:08→22:30)
[2020-02-13] MEDS: LEVALBUTEROL HCL 1.25 MG/3 ML NEB NEB SCH ×5 (00:10→23:34)
[2020-02-13] MEDS: ACCU-CHEK COMFORT CURVE STRIP VI SCH ×5 (03:01→22:41)
[2020-02-13 05:00] VITALS: BP 128/70
[2020-02-13] MEDS: InsuLIN REG 1unit/0.01ml Soln (100units/ml) SC SCH ×4 (06:47→22:41)
[2020-02-13] MEDS: glipiZIDE 5 MG TAB PO SCH (06:55)
[2020-02-13] MEDS: GABAPENTIN 300 MG CAP PO SCH ×2 (06:55→14:10)
[2020-02-13] MEDS: LEVOTHYROXINE SODIUM 88 MCG TAB PO SCH (06:55)
--- NOTE | 2020-02-13 07:25 | NUR ---
Opening Shift Note Assumed care, patient is resting with eyes closed. No S/S of distress/SOB or pain. Bed locked in lowest position, side rails up x2, call light within reach, bed alarm on for safety. Will continue to monitor for changes Q1hr and PRN.
[2020-02-13 08:50] VITALS: BP 150/69
[2020-02-13] MEDS: ATORVASTATIN 20 MG TAB PO SCH (09:00)
[2020-02-13] MEDS: PANTOPRAZOLE 40 MG TAB PO SCH (09:00)
[2020-02-13] MEDS: PREGABALIN 25 MG CAP PO SCH ×2 (09:00→22:41)
[2020-02-13] MEDS: OXYCODONE W/ ACETAMINOPHEN 5/325MG TABLET PO PRN ×2 (09:00→22:40)
[2020-02-13] MEDS: ALPRAZolam 0.25 MG TAB PO SCH ×2 (09:00→22:41)
[2020-02-13] MEDS: LISINOPRIL 20 MG TAB PO SCH (09:01)
[2020-02-13] MEDS: metFORMIN HYDROCHLORIDE 500 MG TAB PO SCH ×2 (09:01→17:08)
[2020-02-13 12:57] VITALS: BP 120/63
--- NOTE | 2020-02-13 13:00 | NUR ---
SPOKE WITH FAMILY PROVIDED DAUGHTER, LJ, WITH UPDATE.
[2020-02-13 14:53] LABS: Basophils # (auto) 0.1 10 ^3/uL (0-0.2); Basophils % (auto) 0.7 % (0.0-2.0); Eosinophils # (auto) 0.1 10 ^3/uL (0-0.8); Lymphocytes # (auto) 1.6 10 ^3/uL (0.4-5.4); Monocytes # (auto) 0.7 10 ^3/uL (0-1.3); Neutrophils # (auto) 5.5 10 ^3/uL (1.6-8.6); Nucleated Red Blood Cells % 0.1 %; White Blood Cell 7.9 10^3/uL (4.4-10.8)
[2020-02-13 14:55] LABS: Hematocrit 42.2 % (36.0-46.0); Hemoglobin 13.5 g/dL (12.2-16.2); Lymphocytes % (auto) 20.7 % (10.0-50.0); Mean Corpuscular Hemoglobin 26.5 pg (28.0-32.0); Mean Corpuscular Hgb Conc. 31.9 g/dL (32.0-36.0); Mean Corpuscular Volume 82.9 fL (80.0-100.0); Monocytes % (auto) 8.7 % (0.0-12.0); Neutrophils % (auto) 68.9 % (37.0-80.0); Platelet Count (auto) 185 10^3/uL (140-450); Red Blood Cells 5.09 10^6/uL (4.0-5.20); Red Cell Distribution Width 13.8 % (11.8-14.3)
[2020-02-13 15:16] LABS: Albumin 3.5 g/dL (3.4-5.0); BUN/Creatinine Ratio 11.8; Calcium 9.3 mg/dL (8.5-10.1); Potassium 4.9 mmol/L (3.5-5.1)
[2020-02-13 15:19] LABS: Bilirubin, Total 0.4 mg/dL (0.2-1.0); Total Protein 6.7 g/dL (6.4-8.2)
[2020-02-13 17:00] VITALS: BP 148/106
--- NOTE | 2020-02-13 19:55 | NUR ---
RECEIVED PATIENT FROM DAY SHIFT RN. PATIENT RESTING IN BED. NO S/S OF DISTRESS NOTED. C/O PAIN @ 8, DIDN'T LIKE MEDICATION NOW. WILL CALL FOR MEDICATION LATER. REORIENTED PATIENT ON TIME AND PLACE, PATIENT COULD REPEAT BACK. FERNANDEZ CATH IN PLACE DRAINING GRAVITY. POC INSTRUCTED AND ENCOURAGED PATIENT TO CALL FOR GREEN MARKETING ANALYST IF NEEDED. BED IN LOWEST POSITION WITH SIDE RAILS UP X 2. CALL DICKEY WITHIN REACH. ALARM ON. CONTINUE TO MONITOR FOR CHANGES Q1H AND PRN.
--- NOTE | 2020-02-13 20:02 | NUR ---
PATIENT'S FAMILY CALLED AND PASSWORD CONFIRMED. UPDATED ON PATIENT'S SITUATION. CONTINUE CARE.
[2020-02-13 22:00] VITALS: BP 90/48
[2020-02-13] MEDS: traZODone HCL 50 MG TAB PO SCH (22:40)
--- NOTE | 2020-02-13 22:40 | NUR ---
PATIENT C/O PAIN @ 05/27, BUT REFUSED TO TAKE ORAL MORPHINE, PERCOCET GIVEN ORDERED PER PATIENT REQUESTED. CONTINUE TO MONITOR.
--- NOTE | 2020-02-13 22:52 | NUR ---
ACCU-CHECK, BS 95. NO COVERAGE. CONTINUE TO MONITOR.
--- NOTE | 2020-02-13 23:40 | NUR ---
PATIENT SLEEPING. NO S/S OF PAIN NOTED. CONTINUE TO MONITOR.
--- NOTE | 2020-02-14 03:48 | NUR ---
PATIENT SLEEPING. NO S/S OF DISTRESS NOTED. CONTINUE CARE.
[2020-02-14 05:00] VITALS: BP 97/46
[2020-02-14] MEDS: LEVOTHYROXINE SODIUM 88 MCG TAB PO SCH (06:43)
[2020-02-14] MEDS: ACCU-CHEK COMFORT CURVE STRIP VI SCH ×3 (06:43→17:14)
[2020-02-14] MEDS: InsuLIN REG 1unit/0.01ml Soln (100units/ml) SC SCH ×3 (06:44→17:00)
--- NOTE | 2020-02-14 06:46 | NUR ---
PATIENT WAS CONFUSED WHEN WOKE PATIENT UP FOR MEDICATIONS, REORIENTED PATIENT PLACE, TIME AND SITUATION. PATIENT COULD UNDERSTAND AND TAKE MEDICATIONS. ACCU-CHECK, BS 139, INSULIN GIVEN ORDERED. CONTINUE TO MONITOR.
--- NOTE | 2020-02-14 07:20 | NUR ---
Opening shift note Care of patient assumed from NOC RN. Patient is AOx2 patient is able to state her full name and state that she is in the hospital, unable to tell me time and date. patient is forgetful. Updated her on plan of care and patient verbalized understanding. Bed is in lowest locked position, side rails up x2, and call light within reach. I will continue to monitor Q1hr and PRN.
[2020-02-14] MEDS: LEVALBUTEROL HCL 1.25 MG/3 ML NEB NEB SCH ×3 (07:30→18:05)
[2020-02-14 09:00] VITALS: BP 108/68
--- NOTE | 2020-02-14 09:50 | NUR ---
Spoke with family Received call from patients daughter Eileen, updated her on plan of care, verbalized understanding.
[2020-02-14] MEDS: PREGABALIN 25 MG CAP PO SCH (11:06)
[2020-02-14] MEDS: PANTOPRAZOLE 40 MG TAB PO SCH (11:06)
[2020-02-14] MEDS: metFORMIN HYDROCHLORIDE 500 MG TAB PO SCH ×2 (11:06→18:00)
[2020-02-14 11:07] VITALS: BP 143/61
[2020-02-14] MEDS: ATORVASTATIN 20 MG TAB PO SCH (11:08)
[2020-02-14] MEDS: LISINOPRIL 20 MG TAB PO SCH (11:08)
[2020-02-14] MEDS: ALPRAZolam 0.25 MG TAB PO SCH (11:08)
[2020-02-14 12:23] VITALS: BP 91/54
[2020-02-14 16:40] VITALS: BP 113/63
--- NOTE | 2020-02-14 19:38 | NUR ---
end of shift note care of patient endorsed to NOC RN Do. no s/s of distress noted at this time.
--- NOTE | 2020-02-14 19:40 | NUR ---
RECEIVED PATIENT FROM DAY SHIFT RN. PATIENT RESTING IN BED. NO S/S OF DISTRESS NOTED. REORIENTED PATIENT ON TIME AND PLACE, PATIENT COULD REPEAT BACK. AND MAKE PATIENT AWARE THAT SHE WILL BE D/C TONIGHT. PATIENT'S SON WAS CALLED BY DAY SHIFT RN. AND WILL COME TO PICK PATIENT UP AROUND 2100. FERNANDEZ CATH IN PLACE DRAINING GRAVITY. POC INSTRUCTED AND ENCOURAGED PATIENT TO CALL FOR ZONE MANAGER IF NEEDED. BED IN LOWEST POSITION WITH SIDE RAILS UP X 2. CALL DICKEY WITHIN REACH. ALARM ON. CONTINUE TO MONITOR FOR CHANGES Q1H AND PRN.
--- NOTE | 2020-02-14 20:41 | NUR ---
CLARIFIED WITH DR NICOLE, PATIENT WILL BE D/C FERNANDEZ CATH BEFORE DISCHARGE. WILL CARRY IT OUT.
--- NOTE | 2020-02-14 20:43 | NUR ---
Chopra catheter dc'd Order to discontinue chopra catheter. Chopra dc'd with clean technique following deflation of balloon. Patient tolerated well with no complaints of pain. Continue care.
--- NOTE | 2020-02-14 21:15 | NUR ---
Discharge instructions given as ordered. Encourage to follow up with PMD as instructed. All questions and concerns addressed. Patient'S SON verbalized understanding. Medication reconciliation form completed and copy given to patient'S SON RANDOLPH. IV removed with catheter intact, pressure dressing applied, chopra catheter removed. Telemetry unit returned to ICU. Patient taken to vehicle via wheelchair with all personal belongings, accompanied by staff. No distress noted at time of departure.
[2020-02-14 22:00] VITALS: BP 101/52
== END 2020-02-14 21:15 | disposition home or self-care (01) | DRG 682 ==
LOC: ER 14:52 → TELE 14:53 → TELE-WESTW 02-11 07:55
PROVIDERS: ADMIT Internal Medicine Cardiovascular Disease; ATTEND Internal Medicine Cardiovascular Disease
DX: N17.0 Acute kidney failure with tubular necrosis (principal); I50.33 Acute on chronic diastolic (congestive) heart failure; I13.0 Hypertensive heart and chronic kidney disease with heart failure and stage 1 through stage 4 chronic kidney disease, or unspecified chronic kidney disease; J44.0 Chronic obstructive pulmonary disease with (acute) lower respiratory infection; J44.1 Chronic obstructive pulmonary disease with (acute) exacerbation; J20.9 Acute bronchitis, unspecified; I95.2 Hypotension due to drugs; M79.89 Other specified soft tissue disorders; I25.10 Atherosclerotic heart disease of native coronary artery without angina pectoris; G89.29 Other chronic pain; N18.3 Chronic kidney disease, stage 3 (moderate); E11.22 Type 2 diabetes mellitus with diabetic chronic kidney disease; I49.5 Sick sinus syndrome; F41.9 Anxiety disorder, unspecified; E11.40 Type 2 diabetes mellitus with diabetic neuropathy, unspecified; E78.5 Hyperlipidemia, unspecified; E87.5 Hyperkalemia; E11.42 Type 2 diabetes mellitus with diabetic polyneuropathy; K21.9 Gastro-esophageal reflux disease without esophagitis; I27.21 Secondary pulmonary arterial hypertension; Z79.01 Long term (current) use of anticoagulants; Z79.84 Long term (current) use of oral hypoglycemic drugs; Z85.72 Personal history of non-Hodgkin lymphomas; Z79.899 Other long term (current) drug therapy; Z88.0 Allergy status to penicillin; Z88.6 Allergy status to analgesic agent; Z90.710 Acquired absence of both cervix and uterus; Z91.14 Patient's other noncompliance with medication regimen; Z95.0 Presence of cardiac pacemaker; I25.2 Old myocardial infarction; Z90.49 Acquired absence of other specified parts of digestive tract; Z98.61 Coronary angioplasty status; Z87.891 Personal history of nicotine dependence; M19.90 Unspecified osteoarthritis, unspecified site
CPT/HCPCS: 36415; 51702; 71045; 80048; 80053; 81001; 82962; 83036; 83735; 83880; 84443; 84484; 85025; 85610; 85730; 93005; 94640; 96361; 96374; 96375; G0378; J1815

== ENCOUNTER 2020-02-19 15:52 | Inpatient (IN) | payer MEDICARE, MEDICAID ==
[~2020-02-19] VITALS: Ht 157.5 cm; Wt 72.6 kg
[~2020-02-19 15:52] MED LIST changes: +CHOL500021 PO; -DEXL60CA3 PO; +DEXL60CA4 PO; +DICL1GEL50 TD; -GABA300C10 PO; +GLIP10TA9 PO; -GLIP5TAB12 PO; -HYDR-4833 PO; +INSU1INJ14 SC; -MORP15TA PO; +OXYC325T10 PO; -PERCOT PO; -PREG100C PO; +PREG150C62 PO; -TRAZ150T79 PO; +TRAZ1TAB12 PO; -ZOLP10TA PO
[2020-02-19] MEDS ORDERED: SODIUM CHLORIDE 0.9% 1,000 ML IV ONE ×2 (16:05→17:15)
[2020-02-19] MEDS ORDERED: ALBUMIN 5% 250 ML IV ONE ×2 (16:45→16:47)
[2020-02-19 16:47] LABS: Basophils # (auto) 0.1 10 ^3/uL (0-0.2); Neutrophils # (auto) 7.6 10 ^3/uL (1.6-8.6)
[2020-02-19 16:49] LABS: Basophils % (auto) 0.8 % (0.0-2.0); Eosinophils # (auto) 0.3 10 ^3/uL (0-0.8); Eosinophils % (auto) 2.7 % (0.0-7.0); Hematocrit 35.5 % (36.0-46.0); Hemoglobin 11.3 g/dL (12.2-16.2); Lymphocytes # (auto) 2.4 10 ^3/uL (0.4-5.4); Lymphocytes % (auto) 20.9 % (10.0-50.0); Mean Corpuscular Hemoglobin 26.1 pg (28.0-32.0); Mean Corpuscular Hgb Conc. 31.7 g/dL (32.0-36.0); Mean Corpuscular Volume 82.3 fL (80.0-100.0); Monocytes # (auto) 1.2 10 ^3/uL (0-1.3); Monocytes % (auto) 10.2 % (0.0-12.0); Neutrophils % (auto) 65.4 % (37.0-80.0); Platelet Count (auto) 212 10^3/uL (140-450); Red Blood Cells 4.32 10^6/uL (4.0-5.20); Red Cell Distribution Width 13.7 % (11.8-14.3); White Blood Cell 11.6 10^3/uL (4.4-10.8)
[2020-02-19 17:03] LABS: Albumin 3.3 g/dL (3.4-5.0); BUN/Creatinine Ratio 14.2; Calcium 9.5 mg/dL (8.5-10.1); Magnesium 2.3 mg/dL (1.6-2.6); Potassium 4.7 mmol/L (3.5-5.1)
[2020-02-19] MEDS ORDERED: NOREPINEPHRINE 8 MG/250ML KIT 250 ML IV ONE (17:05)
[2020-02-19 17:06] LABS: Bilirubin, Total 0.3 mg/dL (0.2-1.0); Total Protein 7.3 g/dL (6.4-8.2)
[2020-02-19] MEDS: NOREPINEPHRINE 8 MG/250ML KIT 250 ML IV SCH (17:15)
[2020-02-19 17:41] LABS: INR 1.3 (0.9-1.15); Partial Thromboplastin Time 34.7 sec (23.64-32.05)
[2020-02-19] MEDS ORDERED: NITROGLYCERIN 0.4 MG SL TAB SL PRN (17:45)
[2020-02-19] MEDS ORDERED: SODIUM CHLORIDE 0.9% 500 ML IV ONE (17:45)
[2020-02-19] MEDS ORDERED: MORPHINE SULF INJ 2 MG/ML SYRINGE 1ML IV PRN (17:45)
[2020-02-19] MEDS ORDERED: DEXTROSE (50%) 50ML SYRG IV PRN (17:45)
[2020-02-19] MEDS: SODIUM CHLORIDE 0.9% 1,000 ML IV SCH (18:01)
[2020-02-19 18:13] VITALS: BP 80/41
[2020-02-19] MEDS ORDERED: cefTRIAXone 1GM/50ML D5W 50 ML IV ONE ×2 (18:30→18:37)
[2020-02-19 19:17] LABS: Urine Bacteria NONE SEEN /hpf (None Seen); Urine Blood 1+ /uL (Negative); Urine Mucus FEW (None Seen); Urine WBC 3894 /hpf (0 - 5); Urine WBC Clumps PRESENT /hpf (None Seen)
[2020-02-19 19:21] LABS: Urine Specific Gravity 1.022 (1.001-1.035)
[2020-02-19] MEDS ORDERED: traZODone HCL 50 MG TAB PO PRN (22:00)
[2020-02-19] MEDS: InsuLIN REG 1unit/0.01ml Soln (100units/ml) SC SCH (22:00)
[2020-02-19] MEDS: LEVALBUTEROL HCL 1.25 MG/3 ML NEB NEB SCH (22:03)
[2020-02-19] MEDS ORDERED: ONDANSETRON HCL 4 MG/2 ML VIAL IV ONE (22:15)
[2020-02-19] MEDS: ACCU-CHEK COMFORT CURVE STRIP VI SCH (22:31)
[2020-02-19] MEDS: ALPRAZolam 0.25 MG TAB PO SCH (22:54)
[2020-02-19] MEDS: PREGABALIN 25 MG CAP PO SCH (22:54)
[2020-02-19] MEDS: PANTOPRAZOLE 40 MG TAB PO SCH (23:07)
[2020-02-20] VITALS (20 sets, daily range): BP systolic 95–124; BP diastolic 43–64
[2020-02-20] MEDS ORDERED: SODIUM CHLORIDE 0.9% 1,000 ML IV SCH (02:30)
[2020-02-20] MEDS: SODIUM CHLORIDE 0.9% 1,000 ML IV SCH (02:37)
[2020-02-20] MEDS: NOREPINEPHRINE 8 MG/250ML KIT 250 ML IV SCH (04:08)
[2020-02-20] MEDS: LEVALBUTEROL HCL 1.25 MG/3 ML NEB NEB SCH ×3 (06:00→22:12)
[2020-02-20] MEDS: LEVOTHYROXINE SODIUM 88 MCG TAB PO SCH (06:19)
[2020-02-20] MEDS: ACCU-CHEK COMFORT CURVE STRIP VI SCH ×4 (06:52→22:22)
[2020-02-20] MEDS: InsuLIN REG 1unit/0.01ml Soln (100units/ml) SC SCH ×4 (07:00→22:00)
[2020-02-20] MEDS: cefTRIAXone 1GM/50ML D5W 50 ML IV SCH (09:05)
[2020-02-20] MEDS: PREGABALIN 25 MG CAP PO SCH (09:48)
[2020-02-20] MEDS: PANTOPRAZOLE 40 MG TAB PO SCH ×2 (09:48→22:02)
[2020-02-20] MEDS: ALPRAZolam 0.25 MG TAB PO SCH ×2 (09:48→22:02)
--- NOTE | 2020-02-20 19:00 | NUR ---
OPENING SHIFT NOTE: PATIENT IN HOSPITAL BED RESTING COMFORTABLY. PT IS ALERT AND ORIENTATED TO SELF ONLY AT THIS TIME. BILATERAL CLEAR LUNG SOUNDS NOTED. LEVOPHED DRIP AT 6MG/HR. PT DENIES PAIN AT THIS TIME. PATIENT UPDATED ON POC. WILL CONTINUE TO MONITOR.
--- NOTE | 2020-02-20 20:00 | NUR ---
Turning and repositioning: Patient noted to turn by herself in bed. RN offered patient to be pulled up in bed and repositioned adequately but patient refused. Patient states "my back hurts, don't move me". RN will continue to attempt to help patient turn properly.
--- NOTE | 2020-02-20 21:30 | NUR ---
RN spoke with next of kin "Eileen/DTR" and updated her on patient POC.
--- NOTE | 2020-02-20 22:00 | NUR ---
Turning and repositioning: Patient continues to turn by herself in bed. RN continues to offer patient to be pulled up in bed and repositioned adequately but patient continues to refuse. RN will continue to attempt to help patient turn properly.
[2020-02-20] MEDS: traZODone HCL 50 MG TAB PO SCH (22:03)
--- NOTE | 2020-02-20 22:20 | NUR ---
Levo increased to 8 d/t blood pressure drop to 83/44 with a MAP of 61.
--- NOTE | 2020-02-20 22:25 | NUR ---
Blood pressure increased to 104/45.
--- NOTE | 2020-02-20 23:00 | NUR ---
Patient continues to be confused. Patient was noted to wake up and say incoherent words then fell back to sleep. RN will continue to monitor and assess patient.
[2020-02-21] VITALS (28 sets, daily range): BP systolic 104–144; BP diastolic 46–69
--- NOTE | 2020-02-21 | NUR ---
Patient appeared to want to get out of bed and sat up. Patient had her eyes closed and mumbled non-coherent words and laid back down and slept.
--- NOTE | 2020-02-21 02:25 | NUR ---
Patient noted with 800mL urine output.
--- NOTE | 2020-02-21 04:00 | NUR ---
Patient woke up thirsty. Patient was given water. Patient appears to be dazed and fell back to sleep. Patient still refuses to let RN turn her from side to side. Patient states "I have fibromyalgia and everything hurts when i move".
--- NOTE | 2020-02-21 05:48 | NUR ---
Patient noted with 300 urine output.
[2020-02-21] MEDS: ACCU-CHEK COMFORT CURVE STRIP VI SCH ×4 (06:17→22:38)
[2020-02-21] MEDS: LEVOTHYROXINE SODIUM 88 MCG TAB PO SCH (06:17)
[2020-02-21] MEDS: InsuLIN REG 1unit/0.01ml Soln (100units/ml) SC SCH ×4 (06:22→22:38)
[2020-02-21] MEDS: LEVALBUTEROL HCL 1.25 MG/3 ML NEB NEB SCH ×3 (06:30→22:45)
--- NOTE | 2020-02-21 06:44 | NUR ---
BM: Patient was noted to have a bowel movement. When RN approached patient to assess, she stated "You are going to clean me". RN advised patient she needs to be cleaned but patient refused. Patient would like a female nurse.
--- NOTE | 2020-02-21 06:57 | NUR ---
RN placed all linens and cleaning supplies near patient to clean her but she still refused to allow RN to clean her up. RN provided teaching to patient on the importance of cleaning patient immediately d/t her skin integrity being at risk. Patient still refused and wants a female nurse. RN is still attempting to find a female RN/staff member at this time.
[2020-02-21] MEDS: cefTRIAXone 1GM/50ML D5W 50 ML IV SCH (09:09)
[2020-02-21] MEDS: PREGABALIN CAPSULE 75 MG CAP PO SCH (11:07)
[2020-02-21] MEDS: PANTOPRAZOLE 40 MG TAB PO SCH ×2 (11:07→22:37)
[2020-02-21] MEDS: ALPRAZolam 0.25 MG TAB PO SCH ×2 (11:14→22:37)
[2020-02-21 18:31] LABS: Basophils # (auto) 0 10 ^3/uL (0-0.2); Eosinophils # (auto) 0.1 10 ^3/uL (0-0.8); Monocytes # (auto) 0.7 10 ^3/uL (0-1.3); Platelet Count (auto) 194 10^3/uL (140-450); Red Cell Distribution Width 13.8 % (11.8-14.3)
[2020-02-21 18:33] LABS: Basophils % (auto) 0.2 % (0.0-2.0); Eosinophils % (auto) 2.6 % (0.0-7.0); Hemoglobin 11.8 g/dL (12.2-16.2); Lymphocytes # (auto) 1.4 10 ^3/uL (0.4-5.4); Lymphocytes % (auto) 25.2 % (10.0-50.0); Mean Corpuscular Hemoglobin 25.8 pg (28.0-32.0); Mean Corpuscular Hgb Conc. 31.1 g/dL (32.0-36.0); Mean Corpuscular Volume 83.1 fL (80.0-100.0); Neutrophils # (auto) 3.3 10 ^3/uL (1.6-8.6); Red Blood Cells 4.58 10^6/uL (4.0-5.20); White Blood Cell 5.6 10^3/uL (4.4-10.8)
[2020-02-21 18:50] LABS: Albumin 2.9 g/dL (3.4-5.0); Calcium 9.2 mg/dL (8.5-10.1); Potassium 4.2 mmol/L (3.5-5.1)
[2020-02-21 18:53] LABS: BUN/Creatinine Ratio 18.4; Bilirubin, Total 0.2 mg/dL (0.2-1.0); Total Protein 6.5 g/dL (6.4-8.2)
[2020-02-21] MEDS: METOCLOPRAMIDE HCL 5MG/ml INJ 2ml VIAL IV PRN (20:06)
--- NOTE | 2020-02-21 21:40 | NUR ---
Telemetry admit from ER GERMAINE DAY admitted to Telemetry unit. Patient oriented to primary RN, unit, room, bed, and unit policies regarding patient care and visiting hours. Patient now on continuous telemetry monitoring, tele box #24 and telemetry reading on arrival to unit is sinus rhythm. Patient placed on bedside oxygen, weighed by bedscale and encouraged to call if they need something. All questions and concerns addressed, patient verbalized understanding. Bed in lowest locked position, call light within reach, side rails up x2, fall precautions in place. Will continue to monitor Q1hr and PRN.
[2020-02-21] MEDS: traZODone HCL 50 MG TAB PO SCH (22:37)
[2020-02-22 05:00] VITALS: BP 111/58
[2020-02-22] MEDS: InsuLIN REG 1unit/0.01ml Soln (100units/ml) SC SCH ×4 (06:43→21:38)
[2020-02-22] MEDS: ACCU-CHEK COMFORT CURVE STRIP VI SCH ×4 (06:43→21:39)
[2020-02-22] MEDS: LEVOTHYROXINE SODIUM 88 MCG TAB PO SCH (06:43)
[2020-02-22] MEDS: LEVALBUTEROL HCL 1.25 MG/3 ML NEB NEB SCH ×3 (07:06→23:39)
--- NOTE | 2020-02-22 07:50 | NUR ---
Opening Note Assumed pt care from NOC RN. Pt is a/ox4 with no s/s of distress or SOB. Pt is currently sitting upright in bed with no complaints at this time. Pt is currently on 2L NC. Peralta catheter is present, free of kinks and draining to gravity. Discussed POC with pt; pt verbalized understanding. Safety measures maintained with call light within reach, bed in lowest position and side rails up. Will continue to monitor for changes.
[2020-02-22] MEDS: cefTRIAXone 1GM/50ML D5W 50 ML IV SCH (08:31)
[2020-02-22] MEDS: ALPRAZolam 0.25 MG TAB PO SCH ×2 (08:51→21:31)
[2020-02-22] MEDS: PREGABALIN CAPSULE 75 MG CAP PO SCH (08:52)
[2020-02-22] MEDS: PANTOPRAZOLE 40 MG TAB PO SCH ×2 (08:52→21:32)
[2020-02-22 08:54] VITALS: BP 119/63
[2020-02-22 13:00] VITALS: BP 146/80
--- NOTE | 2020-02-22 13:40 | NUR ---
Dr Jeffers at Station MD to see pt. Orders to d/c chopra catheter. Will implement and continue to monitor.
--- NOTE | 2020-02-22 15:34 | NUR ---
Peralta Catheter Removed Peralta removed. Pt tolerated removal well. Will continue to monitor voiding needs. Pt instructed to call with assistance.
[2020-02-22 17:00] VITALS: BP 132/80
--- NOTE | 2020-02-22 19:30 | NUR ---
Opening Shift Note Received report from romi Banerjee RN. Assumed care of patient, awake and alert. No S/S of distress/SOB or pain. Instructed on POC and to call for assist PRN, will continue to monitor for changes Q1hr and PRN. Bed placed in lowest position, bed alarm turned on and call light within reach.
--- NOTE | 2020-02-22 20:45 | NUR ---
PATIENT IS COMPLAINING OF PAIN TO BILATERAL FEET OF 6/10. WILL SEND REQUEST FROM DR NICOLE.
--- NOTE | 2020-02-22 21:02 | NUR ---
MD NICOLE NOTIFIED AND RECEIVED AN ORDER TO RESUME OXYCODONE WITH ACETAMINOPHEN 10/325 MG PO QID. ORDER NOTED.
[2020-02-22 21:11] VITALS: BP 132/80
[2020-02-22] MEDS: traZODone HCL 50 MG TAB PO SCH (21:32)
[2020-02-22 22:25] VITALS: BP 135/72
--- NOTE | 2020-02-22 22:32 | NUR ---
ROUNDS PATIENT IS RESTING IN BED WITH EYES CLOSED, NO DISTRESS NOTED WITH EVEN AND UNLABORED RESPIRATIONS. PATIENT DENIES PAIN AT THIS TIME.
--- NOTE | 2020-02-23 03:00 | NUR ---
ASSISTED PATIENT TO THE COMMODE. PATIENT HAS A SMALL SOFT BOWEL MOVEMENT. PATIENT SITUATED BACK IN BED, NO DISTRESS NOTED AND PATIENT DENIES PAIN.
--- NOTE | 2020-02-23 03:15 | NUR ---
REPORT GIVEN TO ADRIÁN HERNANDEZ. PATIENT IS RESTING IN BED WITH EYES CLOSED. NO DISTRESS NOTED AND PATIENT DENIES PAIN
--- NOTE | 2020-02-23 03:20 | NUR ---
Received report from Mary SAMPSON. Patient transferred to my care. Patient free of pain or distress. Safety measures in place bed in lowest position, side rails up x2, and call light within reach. Will continue to monitor every hour and as needed.
[2020-02-23] MEDS: METOCLOPRAMIDE HCL 5MG/ml INJ 2ml VIAL IV PRN (05:22)
[2020-02-23 05:23] VITALS: BP 136/87
[2020-02-23] MEDS: ACCU-CHEK COMFORT CURVE STRIP VI SCH ×4 (05:38→22:19)
[2020-02-23] MEDS: LEVOTHYROXINE SODIUM 88 MCG TAB PO SCH (05:55)
[2020-02-23] MEDS: OXYCODONE W/ ACETAMINOPHEN 5/325MG TABLET PO PRN ×3 (05:57→22:20)
[2020-02-23] MEDS: InsuLIN REG 1unit/0.01ml Soln (100units/ml) SC SCH ×4 (06:00→22:00)
[2020-02-23] MEDS: LEVALBUTEROL HCL 1.25 MG/3 ML NEB NEB SCH ×4 (06:10→22:37)
[2020-02-23 06:36] LABS: Basophils # (auto) 0.1 10 ^3/uL (0-0.2); Basophils % (auto) 0.5 % (0.0-2.0); Mean Corpuscular Hgb Conc. 31.5 g/dL (32.0-36.0); Monocytes # (auto) 0.9 10 ^3/uL (0-1.3); Monocytes % (auto) 8.3 % (0.0-12.0); White Blood Cell 10.4 10^3/uL (4.4-10.8)
[2020-02-23 06:38] LABS: Eosinophils # (auto) 0.2 10 ^3/uL (0-0.8); Eosinophils % (auto) 1.6 % (0.0-7.0); Hematocrit 44.4 % (36.0-46.0); Lymphocytes # (auto) 2.3 10 ^3/uL (0.4-5.4); Lymphocytes % (auto) 22.1 % (10.0-50.0); Mean Corpuscular Hemoglobin 26.4 pg (28.0-32.0); Mean Corpuscular Volume 83.8 fL (80.0-100.0); Neutrophils % (auto) 67.5 % (37.0-80.0); Nucleated Red Blood Cells % 0.1 %; Platelet Count (auto) 264 10^3/uL (140-450)
[2020-02-23 06:43] LABS: Potassium 3.8 mmol/L (3.5-5.1)
[2020-02-23 06:50] LABS: Albumin 3.6 g/dL (3.4-5.0); BUN/Creatinine Ratio 14.7; Bilirubin, Total 0.3 mg/dL (0.2-1.0); Calcium 10.4 mg/dL (8.5-10.1); Total Protein 7.5 g/dL (6.4-8.2)
[2020-02-23 09:00] VITALS: BP 135/84
[2020-02-23] MEDS: PREGABALIN 25 MG CAP PO SCH ×2 (09:00→22:18)
[2020-02-23] MEDS: PREGABALIN CAPSULE 75 MG CAP PO SCH ×2 (09:00→22:18)
[2020-02-23] MEDS: PANTOPRAZOLE 40 MG TAB PO SCH ×2 (09:01→22:18)
[2020-02-23] MEDS: ALPRAZolam 0.25 MG TAB PO SCH ×2 (09:01→22:19)
[2020-02-23] MEDS: cefTRIAXone 1GM/50ML D5W 50 ML IV SCH (09:02)
--- NOTE | 2020-02-23 12:17 | NUR ---
assessment Patient is a 64 year old female who is alert and oriented per daughter Eileen. Patient is sleeping so I did initial assessment with richie Arellano. Prior to admission patient lived home with her son Yuriy who is her [facility] caregiver. Patient has a cane and rollator for home use. Patients PCP is Dr Jeffers. Patient has life alert. Patient is on service with [facility] [phone]. Patient will benefit from home health resumption order on discharge. Patient has an advanced directive and her POA is her daughter Eileen. Per Eileen patient needs to monitor her vitals more closely. She is requesting home safety, medication management and vitals on discharge. I have notified bedside nurseNury Eileen verbalized understanding and agreed to discharge plan home. Addendum: 02/23/20 at 1222 by Beth GRIGSBY Amended: Links added.
[2020-02-23 12:41] VITALS: BP 136/97
--- NOTE | 2020-02-23 14:53 | NUR ---
Nutrition Assessment Notes please see attached link for complete assessment Est Energy needs BW 71 [id number] kcals (23-25 kcal/kgBW), Est Protein needs: 71-77 gm/day (1.0-1.1/kg BW). Will continue to monitor and reassess prn. Addendum: 02/23/20 at [address] Amended: Links added.
[2020-02-23 16:46] VITALS: BP 103/73
--- NOTE | 2020-02-23 19:55 | NUR ---
Opening shift Note Pt is resting in bed with eyes open and resp rate is even and unlabored. No s/s of any distress noted at this time . POC discussed with pt and pt verbalizes understanding. Bed is low, wheels are lcoked, and call light is with in reach. Bed alarm is set for pt safety.
[2020-02-23 20:17] LABS: Urine Bacteria NONE SEEN /hpf (None Seen); Urine Blood TRACE /uL (Negative); Urine Hyaline Cast MOD /lpf (0 - 2); Urine Mucus FEW (None Seen); Urine Specific Gravity 1.021 (1.001-1.035); Urine WBC 122 /hpf (0 - 5)
[2020-02-23 22:00] VITALS: BP 141/71
[2020-02-23] MEDS: traZODone HCL 50 MG TAB PO SCH (22:17)
--- NOTE | 2020-02-23 22:37 | NUR ---
Respiratory note: PT REFUSING MED NEB TX AT THIS TIME. PT STATED SHE WANTED TO CATCH UP ON SLEEP AND WOULD TAKE HER TX IN THE MORNING. HR 88, RR 18, SPO2 96% ON RA. NO S/S OF ANY DISTRESS NOTED. ADVISED PT TO CALL IF TX IS NEEDED.
[2020-02-24 05:00] VITALS: BP 127/76
[2020-02-24] MEDS: LEVOTHYROXINE SODIUM 88 MCG TAB PO SCH (06:28)
[2020-02-24] MEDS: ACCU-CHEK COMFORT CURVE STRIP VI SCH ×4 (06:28→23:06)
[2020-02-24] MEDS: InsuLIN REG 1unit/0.01ml Soln (100units/ml) SC SCH ×4 (06:29→22:00)
[2020-02-24] MEDS: LEVALBUTEROL HCL 1.25 MG/3 ML NEB NEB SCH ×3 (06:45→23:25)
[2020-02-24 09:00] VITALS: BP 133/86
[2020-02-24] MEDS: cefTRIAXone 1GM/50ML D5W 50 ML IV SCH (09:02)
[2020-02-24] MEDS: PREGABALIN CAPSULE 75 MG CAP PO SCH ×2 (09:02→23:05)
[2020-02-24] MEDS: PANTOPRAZOLE 40 MG TAB PO SCH ×2 (09:02→23:06)
[2020-02-24] MEDS: PREGABALIN 25 MG CAP PO SCH ×2 (09:03→23:05)
[2020-02-24] MEDS: ALPRAZolam 0.25 MG TAB PO SCH ×2 (09:03→23:06)
[2020-02-24 13:00] VITALS: BP 128/69
[2020-02-24 13:26] LABS: Basophils # (auto) 0.1 10 ^3/uL (0-0.2); Basophils % (auto) 0.7 % (0.0-2.0); Eosinophils # (auto) 0.4 10 ^3/uL (0-0.8); Hematocrit 39.5 % (36.0-46.0); Hemoglobin 12.4 g/dL (12.2-16.2); Neutrophils # (auto) 5.4 10 ^3/uL (1.6-8.6); Nucleated Red Blood Cells % 0.1 %; White Blood Cell 9.6 10^3/uL (4.4-10.8)
[2020-02-24 13:27] LABS: Eosinophils % (auto) 4.2 % (0.0-7.0); Lymphocytes # (auto) 2.8 10 ^3/uL (0.4-5.4); Lymphocytes % (auto) 28.8 % (10.0-50.0); Mean Corpuscular Hemoglobin 25.9 pg (28.0-32.0); Mean Corpuscular Hgb Conc. 31.3 g/dL (32.0-36.0); Mean Corpuscular Volume 82.5 fL (80.0-100.0); Monocytes % (auto) 10.1 % (0.0-12.0); Neutrophils % (auto) 56.2 % (37.0-80.0); Platelet Count (auto) 209 10^3/uL (140-450); Red Blood Cells 4.79 10^6/uL (4.0-5.20); Red Cell Distribution Width 13.6 % (11.8-14.3)
--- NOTE | 2020-02-24 13:30 | NUR ---
PT VERY TIRED. PT DECLINED P.T. TODAY.
[2020-02-24 13:43] LABS: BUN/Creatinine Ratio 16.5; Calcium 9.3 mg/dL (8.5-10.1); Potassium 3.9 mmol/L (3.5-5.1)
--- NOTE | 2020-02-24 15:00 | NUR ---
Late entry Received call from [place] that patient was having a run of SVT. Went to check on patient she was walking around in room and going to bathroom. Once patient sat down heart rate went to 102 sinus tachy. Doctor Zeyad has been informed no orders received.
[2020-02-24 15:17] LABS: Amphetamine Screen, Urine NEGATIVE (NEGATIVE); Barbiturate Scree,Urine NEGATIVE (NEGATIVE); Benzodiazephine Screen, Urine POSITIVE (NEGATIVE); Cannabinoid Screen, Urine NEGATIVE (NEGATIVE); Cocaine Screen, Urine NEGATIVE (NEGATIVE); Opiate Scree,Urine NEGATIVE (NEGATIVE); Phencyclidine Screen, Urine NEGATIVE (NEGATIVE)
[2020-02-24 16:52] VITALS: BP 119/67
[2020-02-24 22:00] VITALS: BP 118/74
[2020-02-24] MEDS: traZODone HCL 50 MG TAB PO SCH (23:04)
[2020-02-24] MEDS: OXYCODONE W/ ACETAMINOPHEN 5/325MG TABLET PO PRN (23:07)
[2020-02-25 05:00] VITALS: BP 122/60
[2020-02-25] MEDS: InsuLIN REG 1unit/0.01ml Soln (100units/ml) SC SCH ×4 (06:33→22:13)
[2020-02-25] MEDS: LEVOTHYROXINE SODIUM 88 MCG TAB PO SCH (06:45)
[2020-02-25] MEDS: ACCU-CHEK COMFORT CURVE STRIP VI SCH ×4 (06:45→22:12)
[2020-02-25] MEDS: LEVALBUTEROL HCL 1.25 MG/3 ML NEB NEB SCH ×3 (06:51→22:00)
[2020-02-25] MEDS: cefTRIAXone 1GM/50ML D5W 50 ML IV SCH (09:09)
[2020-02-25] MEDS: ALPRAZolam 0.25 MG TAB PO SCH ×2 (09:10→21:53)
[2020-02-25] MEDS: PANTOPRAZOLE 40 MG TAB PO SCH ×2 (09:10→21:54)
[2020-02-25] MEDS: PREGABALIN CAPSULE 75 MG CAP PO SCH ×2 (09:10→21:54)
[2020-02-25] MEDS: PREGABALIN 25 MG CAP PO SCH ×2 (09:10→21:54)
[2020-02-25 09:12] VITALS: BP 139/62
[2020-02-25 13:00] VITALS: BP 116/74
[2020-02-25 16:57] VITALS: BP 100/55
--- NOTE | 2020-02-25 19:30 | NUR ---
Opening Shift Note Assumed care of patient, awake and alert. No S/S of distress/SOB or pain. Insructed on POC and to callfor assist PRN, will continue to monitor for changes Q1hr and PRN. Fall and safety precautions in place. Call light within reach.
[2020-02-25 20:05] VITALS: BP 100/55
[2020-02-25 21:25] VITALS: BP 132/56
[2020-02-25] MEDS: traZODone HCL 50 MG TAB PO SCH (21:54)
[2020-02-26] MEDS: OXYCODONE W/ ACETAMINOPHEN 5/325MG TABLET PO PRN ×2 (00:27→20:00)
[2020-02-26 05:51] VITALS: BP 119/68
[2020-02-26] MEDS: LEVALBUTEROL HCL 1.25 MG/3 ML NEB NEB SCH ×3 (06:45→22:11)
[2020-02-26] MEDS: InsuLIN REG 1unit/0.01ml Soln (100units/ml) SC SCH ×4 (07:00→21:35)
[2020-02-26] MEDS: LEVOTHYROXINE SODIUM 88 MCG TAB PO SCH (07:02)
[2020-02-26] MEDS: ACCU-CHEK COMFORT CURVE STRIP VI SCH ×4 (07:03→21:35)
[2020-02-26 09:00] VITALS: BP 128/71
[2020-02-26] MEDS: PREGABALIN CAPSULE 75 MG CAP PO SCH ×2 (09:16→21:28)
[2020-02-26] MEDS: cefTRIAXone 1GM/50ML D5W 50 ML IV SCH (09:16)
[2020-02-26] MEDS: PREGABALIN 25 MG CAP PO SCH ×2 (09:16→21:28)
[2020-02-26] MEDS: PANTOPRAZOLE 40 MG TAB PO SCH ×2 (09:16→21:28)
[2020-02-26] MEDS: ALPRAZolam 0.25 MG TAB PO SCH ×2 (09:17→21:28)
[2020-02-26 13:00] VITALS: BP 95/62
--- NOTE | 2020-02-26 15:03 | NUR ---
Nutrition Follow-up Wt.: 74.0 kg Pt reports appetite is good with no N/V, pt started to fall asleep while answering questions. Pt is currently on 2 gm NA diet with no recorded po intake by RNs since 02/23. Pt unable to quantify current food consumption. Est Energy needs BW 74 [id number] kcals (23-25 kcal/kgBW), Est Protein needs: 74-81 gm/day (1.0-1.1/kg BW). Will continue to monitor and reassess prn. Labs: From 02/23 BUN 21 H, Creat 1.27 H POC Gluc 197 H (02/25) GI: Pt unable to report last BM, 2 BM 02/22 per RN doc Skin: BS 21 low risk, no wounds per RN doc PES: 1) Partially resolved, Ca WNL: Altered nutrition related lab values r/t current chronic medical condition aeb elev creat, hyperglycemia, hypercalcemia Recommendations: 1) Continue monitor pt PO intake to meet at least 75% of meals. 2) Refer pt to RD for nutrition education upon D/C 3) Continue current plan of care. 4) F/u mod 3-5 days
[2020-02-26 17:24] VITALS: BP 119/52
[2020-02-26] MEDS: traZODone HCL 50 MG TAB PO SCH (21:28)
--- NOTE | 2020-02-26 21:48 | NUR ---
TEMP Patient currently has temp of 100.3. Cooling measures applied and Dr. Jeffers contacted regarding order for PRN temp medication. Awaiting response. Will continue to monitor
[2020-02-26 22:00] VITALS: BP 120/56
--- NOTE | 2020-02-26 22:02 | NUR ---
MD JEFFERS Received response from Dr. Jeffers. New orders received and verified, will input and carry out
[2020-02-26] MEDS ORDERED: ACETAMINOPHEN 650 mg PER 20 mL UD PO PRN ×2 (22:15→23:00)
--- NOTE | 2020-02-26 22:30 | NUR ---
MD JEFFERS Received contact from Dr. Jeffers, further orders received and verified. Will input and carry out
--- NOTE | 2020-02-26 22:45 | NUR ---
TEMP Rechecked patient's temp after cooling measures; 99.7F oral. Patient will be medicated with PRN medication
--- NOTE | 2020-02-26 23:25 | NUR ---
URINE SAMPLE Patient informed of MD's order for urine sample. Specimen cup provided, patient verbalized understanding and agreed to call when sample is ready. Will continue to monitor
--- NOTE | 2020-02-27 00:25 | NUR ---
TEMP Patient's temp rechecked; 99F oral. Cooling measures continued. Will continue to monitor
--- NOTE | 2020-02-27 03:45 | NUR ---
FALL Was informed by secondary RN that patient was found on floor of bathroom. Upon entering room, secondary RN was attempting to enter bathroom to assist patient. Due to size of bathroom and position of patient, I was unable to enter bathroom with secondary RN to assist patient. Patient was lifted off floor by secondary RN and bathroom door was able to be opened. Patient was assisted back to bed by myself and secondary RN without incident. Patient states she "lost her balance" and "landed on her tailbone" and "bumped" her "hair" against the back of the door, but states she did not hit her head. Patient denies pain to her tailbone and her head, denies feeling dizzy, denies being lightheaded, denies urinary urgency. Vitals taken: 98.6F oral HR 84 RR 18 O2 100% on RA BP 111/74 Blood sugar; 121 Bed in lowest and locked position, side rails x3 raised, bed alarm turned on, and bedside commode brought to patient. Call light within reach. Patient provided with red socks and informed that MD will be notified. digital designer informed [id number]: Dr. Jeffers notified. Awaiting response
[2020-02-27 05:00] VITALS: BP 111/74
[2020-02-27] MEDS: LEVOTHYROXINE SODIUM 88 MCG TAB PO SCH (06:03)
[2020-02-27] MEDS: ACCU-CHEK COMFORT CURVE STRIP VI SCH ×4 (06:10→21:20)
[2020-02-27] MEDS: InsuLIN REG 1unit/0.01ml Soln (100units/ml) SC SCH ×4 (06:13→21:20)
[2020-02-27] MEDS: LEVALBUTEROL HCL 1.25 MG/3 ML NEB NEB SCH ×3 (06:15→22:12)
--- NOTE | 2020-02-27 07:30 | NUR ---
Opening Shift Note Assumed care of patient, awake, alert, and oriented. No S/S of distress/SOB or pain. Bed in lowest/locked position, bed rails up x2, call light within reach, bed alarm on. Instructed on POC and to call for assist PRN. Will continue to monitor for changes Q1hr and PRN.
--- NOTE | 2020-02-27 07:41 | NUR ---
MD JEFFERS Received response from Dr. Jeffers, no new orders received. Day shift RN made aware
[2020-02-27] MEDS: cefTRIAXone 1GM/50ML D5W 50 ML IV SCH (08:45)
[2020-02-27] MEDS: PREGABALIN 25 MG CAP PO SCH ×2 (08:46→21:09)
[2020-02-27] MEDS: ALPRAZolam 0.25 MG TAB PO SCH ×2 (08:46→21:08)
[2020-02-27] MEDS: PREGABALIN CAPSULE 75 MG CAP PO SCH ×2 (08:46→21:09)
[2020-02-27] MEDS: PANTOPRAZOLE 40 MG TAB PO SCH ×2 (08:46→21:09)
[2020-02-27 09:13] VITALS: BP 135/59
[2020-02-27 09:30] LABS: Basophils # (auto) 0.1 10 ^3/uL (0-0.2); Basophils % (auto) 0.8 % (0.0-2.0); Eosinophils # (auto) 0.3 10 ^3/uL (0-0.8); Eosinophils % (auto) 3.7 % (0.0-7.0); Monocytes # (auto) 0.8 10 ^3/uL (0-1.3); Monocytes % (auto) 10.3 % (0.0-12.0); Neutrophils # (auto) 4.3 10 ^3/uL (1.6-8.6); Red Blood Cells 4.54 10^6/uL (4.0-5.20); White Blood Cell 8.1 10^3/uL (4.4-10.8)
[2020-02-27 09:31] LABS: Hematocrit 36.8 % (36.0-46.0); Hemoglobin 11.8 g/dL (12.2-16.2); Lymphocytes # (auto) 2.7 10 ^3/uL (0.4-5.4); Lymphocytes % (auto) 32.8 % (10.0-50.0); Mean Corpuscular Volume 81.1 fL (80.0-100.0); Neutrophils % (auto) 52.4 % (37.0-80.0); Nucleated Red Blood Cells % 0.2 %; Platelet Count (auto) 188 10^3/uL (140-450); Red Cell Distribution Width 13.9 % (11.8-14.3)
[2020-02-27 09:44] LABS: Albumin 3.2 g/dL (3.4-5.0); Calcium 9.2 mg/dL (8.5-10.1); Potassium 3.4 mmol/L (3.5-5.1)
[2020-02-27 09:45] LABS: Bilirubin, Total 0.2 mg/dL (0.2-1.0); Total Protein 6.5 g/dL (6.4-8.2)
[2020-02-27 13:00] VITALS: BP 127/80
[2020-02-27 16:36] VITALS: BP 151/77
--- NOTE | 2020-02-27 17:20 | NUR ---
BLOOD PRESSURE NOTIFIED DR NICOLE RE: 151/77. NO NEW ORDERS RECEIVED AT THIS TIME
[2020-02-27 20:20] LABS: Urine Bacteria FEW /hpf (None Seen); Urine Blood Negative /uL (Negative); Urine Specific Gravity 1.007 (1.001-1.035); Urine WBC 8 /hpf (0 - 5)
[2020-02-27] MEDS: traZODone HCL 50 MG TAB PO SCH (21:09)
[2020-02-27 22:27] VITALS: BP 129/84
[2020-02-27] MEDS: OXYCODONE W/ ACETAMINOPHEN 5/325MG TABLET PO PRN (22:56)
[2020-02-28 05:00] VITALS: BP 148/76
[2020-02-28] MEDS: LEVOTHYROXINE SODIUM 88 MCG TAB PO SCH (06:15)
[2020-02-28] MEDS: LEVALBUTEROL HCL 1.25 MG/3 ML NEB NEB SCH ×2 (06:21→14:41)
[2020-02-28] MEDS: ACCU-CHEK COMFORT CURVE STRIP VI SCH ×3 (06:38→17:00)
[2020-02-28] MEDS: InsuLIN REG 1unit/0.01ml Soln (100units/ml) SC SCH ×3 (06:38→17:00)
[2020-02-28 08:58] VITALS: BP 136/79
[2020-02-28] MEDS: PREGABALIN 25 MG CAP PO SCH (12:15)
[2020-02-28] MEDS: cefTRIAXone 1GM/50ML D5W 50 ML IV SCH (12:15)
[2020-02-28] MEDS: ALPRAZolam 0.25 MG TAB PO SCH (12:16)
[2020-02-28] MEDS: PREGABALIN CAPSULE 75 MG CAP PO SCH (12:16)
[2020-02-28] MEDS: PANTOPRAZOLE 40 MG TAB PO SCH (12:16)
[2020-02-28 12:20] VITALS: BP 130/86
[2020-02-28] MEDS: OXYCODONE W/ ACETAMINOPHEN 5/325MG TABLET PO PRN (12:47)
[2020-02-28 16:28] VITALS: BP 130/86
[2020-02-28 16:29] VITALS: BP 112/62
--- NOTE | 2020-02-28 18:00 | NUR ---
Discharge instructions given as ordered. Encourage to follow up with PMD as instructed. All questions and concerns addressed. Patient verbalized understanding. IV removed with catheter intact, pressure dressing applied. Telemetry unit returned to ICU. Patient taken to vehicle via wheelchair with all personal belongings, accompanied by staff member. No distress noted at time of departure.
== END 2020-02-28 18:00 | disposition home or self-care (01) | DRG 871 ==
LOC: ER 15:52 → TELE 15:53 → TELE-CENTR 02-21 21:30
PROVIDERS: ADMIT Internal Medicine Cardiovascular Disease; ATTEND Internal Medicine Cardiovascular Disease
DX: A41.9 Sepsis, unspecified organism (principal); N17.0 Acute kidney failure with tubular necrosis; N39.0 Urinary tract infection, site not specified; N18.4 Chronic kidney disease, stage 4 (severe); E87.1 Hypo-osmolality and hyponatremia; I12.9 Hypertensive chronic kidney disease with stage 1 through stage 4 chronic kidney disease, or unspecified chronic kidney disease; E11.22 Type 2 diabetes mellitus with diabetic chronic kidney disease; I95.9 Hypotension, unspecified; E86.1 Hypovolemia; I25.10 Atherosclerotic heart disease of native coronary artery without angina pectoris; M19.90 Unspecified osteoarthritis, unspecified site; G89.4 Chronic pain syndrome; J44.9 Chronic obstructive pulmonary disease, unspecified; Z95.0 Presence of cardiac pacemaker; Z88.0 Allergy status to penicillin; Z88.6 Allergy status to analgesic agent; Z91.040 Latex allergy status; Z79.899 Other long term (current) drug therapy; Z79.4 Long term (current) use of insulin; Z79.84 Long term (current) use of oral hypoglycemic drugs; Z90.49 Acquired absence of other specified parts of digestive tract; Z90.710 Acquired absence of both cervix and uterus; Z95.5 Presence of coronary angioplasty implant and graft; I25.2 Old myocardial infarction; Z82.3 Family history of stroke; Z80.1 Family history of malignant neoplasm of trachea, bronchus and lung; Z82.49 Family history of ischemic heart disease and other diseases of the circulatory system; Z87.891 Personal history of nicotine dependence
CPT/HCPCS: 36415; 36600; 51702; 71045; 80048; 80053; 80307; 81001; 82805; 82962; 83605; 83735; 83880; 84443; 84484; 85025; 85610; 85730; 87081; 87086; 87088; 87186; 93005; 94640; 96360; 97116; 97163; 97530; G0378; J0696; J1815; J2405

== ENCOUNTER → 2020-05-13 | Outpatient (CLI) | payer MEDICARE, MEDICAID ==
[~2020-05-13] MED LIST changes: +CYANOCOBALAMIN (B-12) 1000 MCG/1 ML VIAL IM ONE; +CYANOCOBALAMIN (B-12) 1000 MCG/1 ML VIAL ONE; +DEXL60CA3 PO; -DEXL60CA4 PO; +FUROSEMIDE 100 MG/10ML VIAL IV ONE; +FUROSEMIDE 40 MG/4 ML VIAL ONE; +POTASSIUM CHL 10 Meq TABLET PO ONE; +POTASSIUM CHL 20 Meq TABLET PO ONE; +TRAZ150T79 PO; -TRAZ1TAB12 PO
[2020-05-13 10:30] VITALS: BP 157/75
[2020-05-13 13:35] VITALS: BP 164/86
[2020-05-13 16:06] LABS: Basophils # (auto) 0 10 ^3/uL (0-0.2); Basophils % (auto) 0.5 % (0.0-2.0); Eosinophils # (auto) 0.3 10 ^3/uL (0-0.8); Hemoglobin 12.3 g/dL (12.2-16.2); White Blood Cell 5.3 10^3/uL (4.4-10.8)
[2020-05-13 16:08] LABS: Eosinophils % (auto) 6.3 % (0.0-7.0); Hematocrit 38.8 % (36.0-46.0); Lymphocytes # (auto) 2.7 10 ^3/uL (0.4-5.4); Lymphocytes % (auto) 51.8 % (10.0-50.0); Mean Corpuscular Hemoglobin 25.7 pg (28.0-32.0); Mean Corpuscular Hgb Conc. 31.8 g/dL (32.0-36.0); Mean Corpuscular Volume 80.9 fL (80.0-100.0); Monocytes # (auto) 0.4 10 ^3/uL (0-1.3); Neutrophils # (auto) 1.8 10 ^3/uL (1.6-8.6); Neutrophils % (auto) 33.4 % (37.0-80.0); Nucleated Red Blood Cells % 0.2 %; Platelet Count (auto) 134 10^3/uL (140-450); Red Blood Cells 4.79 10^6/uL (4.0-5.20); Red Cell Distribution Width 17.3 % (11.8-14.3)
[2020-05-13 16:11] LABS: Calcium 9.1 mg/dL (8.5-10.1); Magnesium 2.1 mg/dL (1.6-2.6); Potassium 4.2 mmol/L (3.5-5.1)
[2020-05-13 16:13] LABS: BUN/Creatinine Ratio 12.3
[2020-05-13 16:16] LABS: Bilirubin, Total 0.2 mg/dL (0.2-1.0); Total Protein 6.8 g/dL (6.4-8.2)
== END | disposition home or self-care (01) ==
LOC: CHF HDHVI 10:29
PROVIDERS: ATTEND Internal Medicine Cardiovascular Disease
DX: R53.83 Other fatigue (principal); R60.9 Edema, unspecified; E03.9 Hypothyroidism, unspecified; I10 Essential (primary) hypertension; D64.9 Anemia, unspecified; Z79.899 Other long term (current) drug therapy
CPT/HCPCS: 36415; 80053; 83735; 84443; 85025; 96372; 96374; G0463; J1940; J3420

== ENCOUNTER 2020-06-22 20:21 | Inpatient (IN) | payer MEDICARE, MEDICAID ==
[~2020-06-22] VITALS: Ht 157.5 cm; Wt 64.1 kg
[~2020-06-22 20:21] MED LIST changes: -CYANOCOBALAMIN (B-12) 1000 MCG/1 ML VIAL IM ONE; -CYANOCOBALAMIN (B-12) 1000 MCG/1 ML VIAL ONE; -DEXL60CA3 PO; +DEXL60CA4 PO; -FUROSEMIDE 100 MG/10ML VIAL IV ONE; -FUROSEMIDE 40 MG/4 ML VIAL ONE; -POTASSIUM CHL 10 Meq TABLET PO ONE; -POTASSIUM CHL 20 Meq TABLET PO ONE; -TRAZ150T79 PO; +TRAZ1TAB12 PO
[2020-06-22 22:37] LABS: Basophils # (auto) 0 10 ^3/uL (0-0.2); Basophils % (auto) 0.4 % (0.0-2.0); Eosinophils # (auto) 0.3 10 ^3/uL (0-0.8); Hemoglobin 13.4 g/dL (12.2-16.2); Lymphocytes % (auto) 35.3 % (10.0-50.0); Monocytes # (auto) 0.6 10 ^3/uL (0-1.3)
[2020-06-22 22:38] LABS: Eosinophils % (auto) 3.5 % (0.0-7.0); Hematocrit 42.3 % (36.0-46.0); Mean Corpuscular Hemoglobin 25.4 pg (28.0-32.0); Mean Corpuscular Hgb Conc. 31.6 g/dL (32.0-36.0); Mean Corpuscular Volume 80.5 fL (80.0-100.0); Monocytes % (auto) 7.4 % (0.0-12.0); Neutrophils # (auto) 4.5 10 ^3/uL (1.6-8.6); Neutrophils % (auto) 53.4 % (37.0-80.0); Platelet Count (auto) 159 10^3/uL (140-450); Red Blood Cells 5.26 10^6/uL (4.0-5.20); Red Cell Distribution Width 16.1 % (11.8-14.3); White Blood Cell 8.4 10^3/uL (4.4-10.8)
[2020-06-22 22:50] LABS: INR 1.17 (0.9-1.15); Partial Thromboplastin Time 28.5 sec (23.0-31.2)
[2020-06-22 22:56] LABS: Alanine Aminotransferase 22 U/L (13-56); Albumin 4.1 g/dL (3.4-5.0); Anion Gap 6 (5-15); Aspartate Aminotransferase 12 U/L (15-37); BUN/Creatinine Ratio 20.4; Blood Urea Nitrogen 49 mg/dL (7-18); Calcium 9.4 mg/dL (8.5-10.1); Carbon Dioxide 26 mmol/L (21-32); Chloride 109 mmol/L (98-107); GFR African American 26 mL/min; GFR Non-African American 21 mL/min; Glucose 105 mg/dL (74-106); Magnesium 1.8 mg/dL (1.6-2.6); Potassium 4.7 mmol/L (3.5-5.1); Sodium 141 mmol/L (136-145)
[2020-06-22 23:00] LABS: Alkaline Phosphatase 84 U/L (45-117); Bilirubin, Total 0.3 mg/dL (0.2-1.0); Total Protein 7.1 g/dL (6.4-8.2)
[2020-06-23] MEDS ORDERED: DexAMETHasone SOD PHOS 10MG/1ML VIAL INJ IV ONE (03:45)
[2020-06-23] MEDS ORDERED: DOXYCYCLINE 100MG/250ML 250 ML IV ONE (04:30)
[2020-06-23] MEDS ORDERED: SODIUM CHLORIDE 0.9% 1,000 ML IV SCH (08:35)
[2020-06-23] MEDS ORDERED: NITROGLYCERIN 0.4 MG SL TAB SL PRN (08:45)
[2020-06-23] MEDS ORDERED: MORPHINE SULF INJ 2 MG/ML SYRINGE 1ML IV PRN ×2 (08:45→09:15)
[2020-06-23] MEDS ORDERED: ACETAMINOPHEN 500 MG TAB PO PRN (08:45)
[2020-06-23] MEDS ORDERED: DEXTROSE (50%) 50ML SYRG IV PRN (09:15)
[2020-06-23] MEDS ORDERED: ONDANSETRON HCL 4 MG/2 ML VIAL IV PRN (09:15)
[2020-06-23] MEDS ORDERED: TEMAZEPAM 15 MG CAP PO PRN (09:15)
[2020-06-23] MEDS ORDERED: CHOLECALCIFEROL (VITD3) 2,000 UNIT CAP PO SCH (10:00)
[2020-06-23] MEDS: DexAMETHasone SOD PHOS 10MG/1ML VIAL INJ IV SCH (10:00)
[2020-06-23] MEDS ORDERED: FAMOTIDINE 20 MG TAB PO SCH (10:00)
[2020-06-23] MEDS ORDERED: ASCORBIC ACID 1,000 MG TAB PO SCH (10:00)
[2020-06-23] MEDS ORDERED: BUDESONIDE (INHALATION) 180 MCG IH IN SCH (10:00)
[2020-06-23] MEDS ORDERED: ENOXAPARIN SOD 30 MG/0.3 ML SYRINGE SC SCH (10:00)
[2020-06-23] MEDS: ZINC SULFATE 220mg CAP or TAB PO SCH (10:19)
[2020-06-23] MEDS: levoFLOXacin 500MG 100 ML IV SCH (10:20)
[2020-06-23] MEDS ORDERED: GABA300C10 PO (10:54)
[2020-06-23] MEDS ORDERED: ZOLP10TA PO (10:54)
[2020-06-23] MEDS: ACCU-CHEK COMFORT CURVE STRIP VI SCH ×3 (12:04→22:03)
[2020-06-23] MEDS: InsuLIN REG 1unit/0.01ml Soln (100units/ml) SC SCH ×3 (12:04→22:08)
[2020-06-23] MEDS ORDERED: ALBUTEROL SULF HFA 90MCG INH 200DOSE IN SCH (14:00)
[2020-06-23] MEDS: PREGABALIN CAPSULE 75 MG CAP PO SCH ×2 (14:50→22:02)
[2020-06-23 15:31] LABS: Urine Bacteria FEW /hpf (None Seen); Urine Blood Negative /uL (Negative); Urine Specific Gravity 1.012 (1.001-1.035); Urine WBC 5 /hpf (0 - 5)
--- NOTE | 2020-06-23 16:38 | NUR ---
Telemetry admit from ER GERMAINE DAY admitted to Telemetry unit after SBAR received by ADRIÁN Juárez. Patient oriented to Teri Fairbanks RN primary RN, unit, room, bed, and unit policies regarding patient care and visiting hours. Patient now on continuous telemetry monitoring, tele box #23 and telemetry reading on arrival to unit is SR. Weighed by bedscale and encouraged to call if they need something. All questions and concerns addressed, patient verbalized understanding.
[2020-06-23 16:59] VITALS: BP 136/75
[2020-06-23] MEDS: RIVAROXABAN 10 MG TAB PO SCH (17:44)
[2020-06-23 21:00] VITALS: BP 123/76
[2020-06-23] MEDS: traMADol HCL 50 MG TAB PO PRN (21:58)
[2020-06-23] MEDS: PROPRANOLOL HCL 20 MG TAB PO SCH (21:59)
[2020-06-23] MEDS: ATORVASTATIN 20 MG TAB PO SCH (22:00)
[2020-06-23] MEDS: traZODone HCL 50 MG TAB PO SCH (22:00)
[2020-06-23] MEDS: PANTOPRAZOLE 40 MG TAB PO SCH (22:01)
[2020-06-23] MEDS: ALPRAZolam 0.25 MG TAB PO SCH (22:02)
[2020-06-23] MEDS: INSULIN LANTUS (GLARGINE) 1 /0.01ml (100units/ml) SC SCH (22:06)
[2020-06-24 05:00] VITALS: BP 150/89
[2020-06-24] MEDS: PREGABALIN CAPSULE 75 MG CAP PO SCH ×3 (05:47→21:44)
[2020-06-24] MEDS: traMADol HCL 50 MG TAB PO PRN ×2 (05:47→21:45)
[2020-06-24 06:33] LABS: Basophils # (auto) 0 10 ^3/uL (0-0.2); Eosinophils # (auto) 0 10 ^3/uL (0-0.8); Eosinophils % (auto) 0.6 % (0.0-7.0); Lymphocytes # (auto) 1.8 10 ^3/uL (0.4-5.4); Monocytes # (auto) 0.5 10 ^3/uL (0-1.3); Neutrophils # (auto) 2.7 10 ^3/uL (1.6-8.6)
[2020-06-24] MEDS: LEVOTHYROXINE SODIUM 88 MCG TAB PO SCH (06:33)
[2020-06-24 06:36] LABS: Basophils % (auto) 0.2 % (0.0-2.0); Hematocrit 37.7 % (36.0-46.0); Hemoglobin 12.1 g/dL (12.2-16.2); Lymphocytes % (auto) 35.5 % (10.0-50.0); Mean Corpuscular Hemoglobin 25.6 pg (28.0-32.0); Mean Corpuscular Hgb Conc. 32.2 g/dL (32.0-36.0); Mean Corpuscular Volume 79.6 fL (80.0-100.0); Monocytes % (auto) 9.8 % (0.0-12.0); Neutrophils % (auto) 53.9 % (37.0-80.0); Nucleated Red Blood Cells % 0.1 %; Platelet Count (auto) 137 10^3/uL (140-450); Red Blood Cells 4.74 10^6/uL (4.0-5.20); Red Cell Distribution Width 16.3 % (11.8-14.3)
--- NOTE | 2020-06-24 06:47 | NUR ---
Closing Notes Endorsed patient to day shift RN patient awake alert and oriented call light with in reach and bed alarm and bed in low position x2 side rails up.
[2020-06-24] MEDS: InsuLIN REG 1unit/0.01ml Soln (100units/ml) SC SCH ×4 (07:00→21:46)
[2020-06-24] MEDS: ACCU-CHEK COMFORT CURVE STRIP VI SCH ×4 (07:02→22:00)
[2020-06-24 07:13] LABS: Albumin 3.8 g/dL (3.4-5.0); Calcium 9.6 mg/dL (8.5-10.1); Potassium 4.6 mmol/L (3.5-5.1)
--- NOTE | 2020-06-24 07:15 | NUR ---
Opening Shift Note Assumed care of patient, awake and alert. No S/S of distress/SOB or pain. Instructed on POC and to call for assist PRN, will continue to monitor for changes Q1hr and PRN. Assisted patient with ADLs. Bed locked in lowest position, HOB elevated at least 30 degrees, side rails up x 2 and call light is within reach.
[2020-06-24 07:18] LABS: BUN/Creatinine Ratio 23.2; Bilirubin, Total 0.4 mg/dL (0.2-1.0); Total Protein 6.4 g/dL (6.4-8.2)
--- NOTE | 2020-06-24 08:42 | NUR ---
Assisted patient with use of bedside commode
[2020-06-24 08:56] VITALS: BP 149/86
[2020-06-24] MEDS: ALPRAZolam 0.25 MG TAB PO SCH ×2 (09:23→21:44)
[2020-06-24] MEDS: PANTOPRAZOLE 40 MG TAB PO SCH ×2 (09:23→21:45)
[2020-06-24] MEDS: NIFEdipine ER 30 MG TAB PO SCH (09:23)
[2020-06-24] MEDS: LOSARTAN POTASSIUM 50 MG TAB PO SCH (09:24)
[2020-06-24] MEDS: ZINC SULFATE 220mg CAP or TAB PO SCH (09:25)
[2020-06-24] MEDS: INSULIN LANTUS (GLARGINE) 1 /0.01ml (100units/ml) SC SCH ×2 (09:31→21:47)
[2020-06-24] MEDS: PROPRANOLOL HCL 20 MG TAB PO SCH ×2 (10:00→21:46)
[2020-06-24] MEDS: DexAMETHasone SOD PHOS 10MG/1ML VIAL INJ IV SCH (11:31)
[2020-06-24] MEDS: levoFLOXacin 500MG 100 ML IV SCH (11:31)
--- NOTE | 2020-06-24 11:45 | NUR ---
IV removal IV at left wrist DC'd because of leaking at site. DC'd with clean sterile technique, catheter fully intact. Pressure dressing applied to site. Patient tolerated well.
--- NOTE | 2020-06-24 11:46 | NUR ---
IV insertion IV access obtained, via clean sterile technique by inserting 22 gauge catheter at right wrsit after 1 attempt. IV secured properly. No trauma to site. Patient tolerated well.
[2020-06-24] MEDS: CHOLECALCIFEROL (VITD3) 1,000UNIT=25mCg TAB PO SCH (12:33)
[2020-06-24] MEDS: ASCORBIC ACID 500 MG TAB PO SCH (12:33)
[2020-06-24 13:00] VITALS: BP 121/69
[2020-06-24 16:29] VITALS: BP 122/65
[2020-06-24] MEDS: RIVAROXABAN 10 MG TAB PO SCH (17:13)
--- NOTE | 2020-06-24 19:18 | NUR ---
CLOSING SHIFT NOTE ENDORSED CARE TO NOC SHIFT RN
--- NOTE | 2020-06-24 19:20 | NUR ---
Opening Shift Note Assumed care of patient, awake and alert and oriented x4. No S/S of distress/SOB or pain. Insructed on POC and to call for assist PRN, will continue to monitor for changes Q1hr and PRN.
[2020-06-24] MEDS: traZODone HCL 50 MG TAB PO SCH (21:44)
[2020-06-24] MEDS: ATORVASTATIN 20 MG TAB PO SCH (21:45)
[2020-06-24 22:00] VITALS: BP 122/72
[2020-06-25 05:00] VITALS: BP 119/75
[2020-06-25] MEDS: PREGABALIN CAPSULE 75 MG CAP PO SCH ×3 (06:10→21:11)
[2020-06-25] MEDS: LEVOTHYROXINE SODIUM 88 MCG TAB PO SCH (06:11)
[2020-06-25] MEDS: ACCU-CHEK COMFORT CURVE STRIP VI SCH ×4 (06:16→21:55)
[2020-06-25] MEDS: InsuLIN REG 1unit/0.01ml Soln (100units/ml) SC SCH ×4 (06:16→21:54)
--- NOTE | 2020-06-25 07:12 | NUR ---
Closing Note Endorsed care to day shift RN Aviva. Patient in bed awake and alert. Call light with in reach bed in lowest position and side rails x2.
[2020-06-25 09:00] VITALS: BP 132/78
[2020-06-25] MEDS: ALPRAZolam 0.25 MG TAB PO SCH ×2 (10:00→21:12)
[2020-06-25] MEDS: DexAMETHasone SOD PHOS 10MG/1ML VIAL INJ IV SCH (10:16)
[2020-06-25] MEDS: NIFEdipine ER 30 MG TAB PO SCH (10:16)
[2020-06-25] MEDS: levoFLOXacin 500MG 100 ML IV SCH (10:16)
[2020-06-25] MEDS: ASCORBIC ACID 500 MG TAB PO SCH (10:17)
[2020-06-25] MEDS: ZINC SULFATE 220mg CAP or TAB PO SCH (10:17)
[2020-06-25] MEDS: CHOLECALCIFEROL (VITD3) 1,000UNIT=25mCg TAB PO SCH (10:17)
[2020-06-25] MEDS: PANTOPRAZOLE 40 MG TAB PO SCH ×2 (10:17→21:11)
[2020-06-25] MEDS: LOSARTAN POTASSIUM 50 MG TAB PO SCH (10:17)
[2020-06-25] MEDS: PROPRANOLOL HCL 20 MG TAB PO SCH ×2 (10:18→21:11)
[2020-06-25] MEDS: INSULIN LANTUS (GLARGINE) 1 /0.01ml (100units/ml) SC SCH ×2 (10:35→21:54)
[2020-06-25 13:00] VITALS: BP 108/74
--- NOTE | 2020-06-25 15:31 | NUR ---
IV insertion IV access obtained, via clean sterile technique by inserting 22 gauge catheter at [facility]. IV secured properly. No trauma to site. Patient tolerated well. IV to right wrist removed with catheter intact, pressure dressing applied. Cont care
[2020-06-25 17:00] VITALS: BP 117/74
[2020-06-25] MEDS: RIVAROXABAN 10 MG TAB PO SCH (18:20)
--- NOTE | 2020-06-25 19:00 | NUR ---
Patient care endorsed to Denise rn, pt sitting up in bed no acute distress or sob noted. Call light within reach
--- NOTE | 2020-06-25 20:00 | NUR ---
Opening Shift Note Assumed care of patient, awake and alert. No S/S of distress/SOB or pain. Instructed on POC and to call for assist PRN, will continue to monitor for changes Q1hr and PRN.
[2020-06-25 21:00] VITALS: BP 123/67
[2020-06-25] MEDS: ATORVASTATIN 20 MG TAB PO SCH (21:12)
[2020-06-25] MEDS: traZODone HCL 50 MG TAB PO SCH (21:12)
[2020-06-26] MEDS: LEVOTHYROXINE SODIUM 88 MCG TAB PO SCH (05:32)
[2020-06-26] MEDS: PREGABALIN CAPSULE 75 MG CAP PO SCH (05:32)
[2020-06-26] MEDS: InsuLIN REG 1unit/0.01ml Soln (100units/ml) SC SCH ×3 (05:32→17:00)
[2020-06-26] MEDS: ACCU-CHEK COMFORT CURVE STRIP VI SCH ×3 (05:33→17:00)
[2020-06-26 05:46] VITALS: BP 134/79
--- NOTE | 2020-06-26 07:14 | NUR ---
Care report given to Braden Chicas, patient is resting no discomfort.
[2020-06-26 09:00] VITALS: BP 121/72
[2020-06-26] MEDS: ALPRAZolam 0.25 MG TAB PO SCH (10:00)
[2020-06-26] MEDS ORDERED: levoFLOXacin 250MG 50 ML IV SCH (10:00)
[2020-06-26] MEDS: ASCORBIC ACID 500 MG TAB PO SCH (10:13)
[2020-06-26] MEDS: ZINC SULFATE 220mg CAP or TAB PO SCH (10:13)
[2020-06-26] MEDS: CHOLECALCIFEROL (VITD3) 1,000UNIT=25mCg TAB PO SCH (10:13)
[2020-06-26] MEDS: PANTOPRAZOLE 40 MG TAB PO SCH (10:13)
[2020-06-26] MEDS: NIFEdipine ER 30 MG TAB PO SCH (10:14)
[2020-06-26] MEDS: LOSARTAN POTASSIUM 50 MG TAB PO SCH (10:15)
[2020-06-26] MEDS: PROPRANOLOL HCL 20 MG TAB PO SCH (10:15)
[2020-06-26] MEDS: DexAMETHasone SOD PHOS 10MG/1ML VIAL INJ IV SCH (10:16)
[2020-06-26] MEDS: INSULIN LANTUS (GLARGINE) 1 /0.01ml (100units/ml) SC SCH (10:20)
--- NOTE | 2020-06-26 12:15 | NUR ---
Nutrition Assessment Note please see attached link for complete assessment [employer] needs BW 64 [id number] kcals (23-25 kcal/kgBW), Est Protein needs: 64-70 gms/day (1.0-1.1gm/kgBW). Will continue to monitor and reassess prn. Addendum: 06/26/20 at [address] Amended: Links added.
[2020-06-26 13:00] VITALS: BP 139/69
[2020-06-26 17:00] VITALS: BP 121/69
--- NOTE | 2020-06-26 18:07 | NUR ---
Tele monitor returned to ICU library monitor Gloria notified.
[2020-06-26] MEDS: RIVAROXABAN 10 MG TAB PO SCH (18:12)
--- NOTE | 2020-06-26 18:40 | NUR ---
Discharge instructions given as ordered to patient at bedside. Encourage to follow up with PMD as instructed. All questions and concerns addressed. Patient verbalized understanding. Medication reconciliation form completed and copy given to patient. Prescribed meds delivered to bedside from [facility]. IV removed with catheter intact, pressure dressing applied. Telemetry unit returned to ICU. Patient awaiting to get dressed and awaiting for her son/caregiver to pick her up. No distress noted at this time.
--- NOTE | 2020-06-26 19:00 | NUR ---
Patient care endorsed to Denise oconnor. Patient awaiting ride at this time
--- NOTE | 2020-06-26 19:42 | NUR ---
Opening Shift Note Assumed care of patient, awake and alert. No S/S of distress/SOB or pain. Instructed on POC and to call for assist PRN, will continue to monitor for changes Q1hr and PRN.Advised to call if the ride is here.
--- NOTE | 2020-06-26 19:55 | NUR ---
Patient brought down to the lobby,by the IT INFRASTRUCTURE MANAGER, family here to get the patient as discharge, patient is in good condition no discomfort.
[2020-06-26] MEDS ORDERED: PREGABALIN CAPSULE 75 MG CAP PO SCH (22:00)
== END 2020-06-26 19:55 | disposition home or self-care (01) | DRG 177 ==
LOC: ER 20:21 → TELE 20:22 → TELE-CENTR 06-23 17:05
PROVIDERS: ADMIT Internal Medicine; ATTEND Hospitalist
DX: J15.6 Pneumonia due to other Gram-negative bacteria (principal); J96.00 Acute respiratory failure, unspecified whether with hypoxia or hypercapnia; N17.0 Acute kidney failure with tubular necrosis; J44.1 Chronic obstructive pulmonary disease with (acute) exacerbation; J98.11 Atelectasis; I13.0 Hypertensive heart and chronic kidney disease with heart failure and stage 1 through stage 4 chronic kidney disease, or unspecified chronic kidney disease; J44.0 Chronic obstructive pulmonary disease with (acute) lower respiratory infection; E11.21 Type 2 diabetes mellitus with diabetic nephropathy; N18.3 Chronic kidney disease, stage 3 (moderate); I50.9 Heart failure, unspecified; I25.10 Atherosclerotic heart disease of native coronary artery without angina pectoris; J44.9 Chronic obstructive pulmonary disease, unspecified; E78.5 Hyperlipidemia, unspecified; E66.3 Overweight; E11.22 Type 2 diabetes mellitus with diabetic chronic kidney disease; I49.5 Sick sinus syndrome; E11.40 Type 2 diabetes mellitus with diabetic neuropathy, unspecified; F41.9 Anxiety disorder, unspecified; R62.7 Adult failure to thrive; E89.0 Postprocedural hypothyroidism; Z88.0 Allergy status to penicillin; Z95.0 Presence of cardiac pacemaker; Z90.710 Acquired absence of both cervix and uterus; Z95.5 Presence of coronary angioplasty implant and graft; Z90.49 Acquired absence of other specified parts of digestive tract; Z87.891 Personal history of nicotine dependence; Z88.6 Allergy status to analgesic agent; Z91.040 Latex allergy status; Z80.1 Family history of malignant neoplasm of trachea, bronchus and lung; Z83.3 Family history of diabetes mellitus; Z82.49 Family history of ischemic heart disease and other diseases of the circulatory system; I25.2 Old myocardial infarction; Z79.899 Other long term (current) drug therapy; Z20.828 Contact with and (suspected) exposure to other viral communicable diseases
CPT/HCPCS: 36415; 71045; 71046; 80053; 81001; 82565; 82962; 83036; 83605; 83735; 83880; 84484; 85025; 85610; 85730; 87040; 87426; 93005; G0378; J1100; J1815; J1956; J2405; J3490

== ENCOUNTER → 2021-01-03 | Outpatient (CLI) | payer MEDICARE, MEDICAID ==
[~2021-01-03] MED LIST changes: +GABA300C10 PO; +PREG-111 PO; -PREG150C62 PO; +ZOLP10TA PO
[2021-01-03 11:43] VITALS: BP 115/89
[2021-01-03 11:59] VITALS: BP 127/74
[2021-01-03 15:39] LABS: Basophils # (auto) 0 10 ^3/uL (0-0.2); Basophils % (auto) 0.5 % (0.0-2.0); Eosinophils # (auto) 0.2 10 ^3/uL (0-0.8); Hematocrit 38.1 % (36.0-46.0); Monocytes # (auto) 0.7 10 ^3/uL (0-1.3); Neutrophils # (auto) 1.9 10 ^3/uL (1.6-8.6); Platelet Count (auto) 123 10^3/uL (140-450); White Blood Cell 5.9 10^3/uL (4.4-10.8)
[2021-01-03 15:41] LABS: BUN/Creatinine Ratio 10.3; Calcium 9.1 mg/dL (8.5-10.1); Eosinophils % (auto) 3.6 % (0.0-7.0); Hemoglobin 12.3 g/dL (12.2-16.2); Mean Corpuscular Hemoglobin 26.1 pg (28.0-32.0); Mean Corpuscular Hgb Conc. 32.3 g/dL (32.0-36.0); Mean Corpuscular Volume 80.9 fL (80.0-100.0); Monocytes % (auto) 12.2 % (0.0-12.0); Neutrophils % (auto) 32.7 % (37.0-80.0); Potassium 4.1 mmol/L (3.5-5.1); Red Blood Cells 4.71 10^6/uL (4.0-5.20); Red Cell Distribution Width 14.7 % (11.8-14.3)
[2021-01-03 15:54] LABS: INR 1.02 (0.9-1.15); Partial Thromboplastin Time 24.7 sec (23.0-31.2)
== END | disposition home or self-care (01) ==
LOC: Rad HDHVI 11:32
PROVIDERS: ATTEND Internal Medicine Cardiovascular Disease
DX: Z01.812 Encounter for preprocedural laboratory examination (principal); M79.606 Pain in leg, unspecified; I50.33 Acute on chronic diastolic (congestive) heart failure
CPT/HCPCS: 36415; 80048; 85025; 85610; 85730; 93005; G0463

== ENCOUNTER 2021-01-07 11:18 | Day surgery (SDC) | payer MEDICARE, MEDICAID ==
[~2021-01-07] VITALS: Ht 154.9 cm; Wt 63.5 kg
[~2021-01-07 11:18] MED LIST changes: -ATOR20TA PO; +BUME1TAB3 PO; -CHOL500021 PO; -DICL1GEL50 TD; -GABA300C10 PO; -GLIP10TA9 PO; -LOSA-39 PO; -PREG-111 PO; +PREG150C PO; -TRAZ1TAB12 PO; +TRIA0.25 PO; -ZOLP10TA PO
[2021-01-07] MEDS ORDERED: LIDOCAINE 2%HCL (LOCAL ANESTH.) INJ 20ML MDV ONE (11:50)
[2021-01-07] MEDS ORDERED: ANGIOMAX 250 MG VIAL IV ONE (12:53)
[2021-01-07] MEDS ORDERED: fentaNYL CITRATE 100 MCG/2 ML VL ONE (12:53)
[2021-01-07] MEDS ORDERED: SODIUM CHL 0.9% 50 ML ONE (12:54)
[2021-01-07] MEDS ORDERED: MIDAZOLAM HCL 1MG/1ML-2 ML VIAL ONE (12:54)
== END 2021-01-07 16:31 | disposition home or self-care (01) ==
LOC: CATH 11:18
PROVIDERS: ATTEND Internal Medicine Cardiovascular Disease
DX: I70.213 Atherosclerosis of native arteries of extremities with intermittent claudication, bilateral legs (principal); J44.9 Chronic obstructive pulmonary disease, unspecified; F41.9 Anxiety disorder, unspecified; I25.10 Atherosclerotic heart disease of native coronary artery without angina pectoris; I11.0 Hypertensive heart disease with heart failure; E78.5 Hyperlipidemia, unspecified; I25.2 Old myocardial infarction; Z20.822 Contact with and (suspected) exposure to COVID-19; Z98.890 Other specified postprocedural states; Z79.899 Other long term (current) drug therapy; Z91.040 Latex allergy status; Z88.0 Allergy status to penicillin; Z95.5 Presence of coronary angioplasty implant and graft; Z90.710 Acquired absence of both cervix and uterus; Z87.891 Personal history of nicotine dependence; Z79.84 Long term (current) use of oral hypoglycemic drugs
CPT/HCPCS: 36247; 75716; C1769; C1887; J0583; J1644; J2250; J3010; J7030; U0003